=== PATIENT | male | born 1945 | race Two or more races ===

== ENCOUNTER 2017-04-19 22:48 | Inpatient (IN) | payer MEDICARE, OTHER ==
[~2017-04-19] VITALS: Ht 160 cm; Wt 76.0 kg
[2017-04-19 22:48] VITALS: Ht 160 cm; Wt 76.0 kg
[~2017-04-19 22:48] MED LIST: ALBU8.5H3 INH; ALLO100T PO; AZIT250T94 PO; CARV25TA79 PO; CLON0.2T5 PO; CODE118S PO; COLC0.6T6 PO; FURO20TA3 PO; GLIM2TAB PO; HYDR100T25 PO; LANT3I SC; LINA5TAB PO; LISI-526 PO; NITR0.4T28 SL; OMEP20CA16 PO; SIMV40TA2 PO
[2017-04-19 23:08] LABS: BASOPHILS % 0.3 % (0.0-2.0); EOSINOPHILS # 0.3 10^3/ul (0.0-0.5); EOSINOPHILS % 2.4 % (0.0-7.0); HEMATOCRIT 43.2 % (42.0-52.0); HEMOGLOBIN 14.3 g/dl (14.0-18.0); LYMPHOCYTES # 2.1 10^3/ul (0.8-2.9); LYMPHOCYTES % 15.8 % (15.0-51.0); MEAN CORPUSCULAR HGB CONC 33.1 g/dl (32.0-37.0); MEAN CORPUSCULAR VOLUME 90.6 fl (82.0-101.0); MEAN PLATELET VOLUME 11.3 fl (7.4-10.4); MONOCYTE # 1.3 10^3/ul (0.3-0.9); MONOCYTES % 9.9 % (0.0-11.0); NEUTROPHILS % 70.9 % (39.0-77.0); PLATELET COUNT 141 10^3/UL (140-415); RED BLOOD COUNT 4.77 10^6/ul (4.70-6.10); RED CELL DISTRIBUTION WIDTH 12.2 % (11.5-14.5); WHITE BLOOD COUNT 13.5 10^3/ul (4.8-10.8)
[2017-04-19 23:36] LABS: ALBUMIN 3.9 g/dl (3.3-4.9); ALBUMIN/GLOBULIN RATIO 1.39; BILIRUBIN,INDIRECT 0.4 mg/dl (0-1.1); BILIRUBIN,TOTAL 0.4 mg/dl (0.2-1.3); CALCIUM 9.4 mg/dl (8.4-10.2); CREATININE 1.66 mg/dl (0.61-1.24); POTASSIUM 4.1 mmol/L (3.5-5.1); TOTAL PROTEIN 6.7 g/dl (6.1-8.1)
--- NOTE | 2017-04-19 23:37 | RADRPT ---
PROCEDURE: XR Chest. CLINICAL INDICATION: Chest pain. TECHNIQUE: Single frontal view of the chest COMPARISON: 02/19/2016 FINDINGS: Cardiomegaly. Atherosclerotic calcifications in the thoracic aorta. The lungs are clear. No signs of pleural fluid or pneumothorax are seen. The osseous structures and soft tissues are unremarkable. IMPRESSION: No evidence for active cardiopulmonary disease. RPTAT: [facility] Physician Daniel Date Time Electronically viewed and signed by Physician Daniel on 04/19/2017 23:37 RS/
[2017-04-19 23:48] LABS: TROPONIN-I 0.023 ng/ml (0.00-0.12)
[2017-04-20] VITALS (7 sets, daily range): BP systolic 122–180; BP diastolic 65–70; PULSE 50–80; RESP 16–18
[2017-04-20] MEDS ORDERED: HYDR-906 PO (01:11)
--- NOTE | 2017-04-20 02:37 | ERA ---
ER Documentation Chief Complaint Date/Time DATE: 04/20/17 TIME: 02:35 Chief Complaint bib ra 7 from home for cp since 1300, 2 sprays nitro+ 4 tabs of 81 mg asa, HPI This is a 71-year-old male comes in from home with chest pains at 1300. Was given 2 sprays of nitro and 324 of aspirin in the field. No nausea no vomiting no chills. Pain is mild to moderate intensity colicky nature with no exacerbating or alleviating factors. ROS All systems reviewed and are negative except as per history of present illness. Medications Home Meds Active Scripts Azithromycin* (Zithromax*) 250 Mg Tablet, 250 MG PO .ZPACK DIRECTED, #6 TAB TAKE 500 MG (2 TABS) THE FIRST DAY THEN 250 MG (1 TAB) DAYS 2-5 Prov:FRANCISCO FERGUSON MD 02/19/16 Reported Medications Hydrocodone/Acetaminophen (Raphine 5-325 Tablet) 1 Each Tablet, 1 EACH PO PRN for PAIN AND/OR INFLAMMATION, TAB 04/20/17 Insulin Glargine* (Lantus*) 100 Unit/Ml Soln, 24 UNIT SC QHS, #1 VIAL 02/19/16 Furosemide* (Furosemide*) 20 Mg Tablet, 10 MG PO DAILY, #60 TAB 02/19/16 Clonidine Hcl* (Clonidine Hcl*) 0.2 Mg Tablet, 0.2 MG PO Q8, TAB 02/19/16 Linagliptin (TRADJENTA) 5 Mg Tablet, 5 MG PO DAILY, TAB 02/19/16 Hydralazine Hcl* (Hydralazine Hcl*) 100 Mg Tablet, 100 MG PO Q8, #90 TAB 02/19/16 Allopurinol* (Allopurinol*) 100 Mg Tablet, 100 MG PO DAILY, TAB 02/19/16 Albuterol Sulfate* (Proair HFA*) 8.5 Gm Hfa.aer.ad, 2 PUFF INH Q4H Y for WHEEZING AND SOB, #1 INHALER 02/19/16 Omeprazole* (Omeprazole*) 20 Mg Capsule.dr, 20 MG PO DAILY, #30 CAP 02/19/16 Glimepiride* (Glimepiride*) 2 Mg Tablet, 2 MG PO WITH BREAKFAST DINNE, TAB 02/19/16 Colchicine* (Colcrys*) 0.6 Mg Tablet, 0.6 MG PO BID-TID, TAB 02/19/16 Carvedilol* (Carvedilol*) 25 Mg Tablet, 25 MG PO TID, #60 TAB 02/19/16 Simvastatin* (Zocor*) 40 Mg Tablet, 40 MG PO DAILY 10/26/11 Lisinopril* (Zestril*) 40 Mg Tablet, 20 MG PO BID 10/26/11 Nitroglycerin (Nitroquick) 0.4 Mg Tab.subl, 0.4 MG SL PRN 10/26/11 Discontinued Scripts Promethazine w/Codeine (Phenergan w/Codeine Syrup) 5 Ml Syrup, 5 ML PO Q6 Y for COUGH, #120 ML Prov:FRANCISCO FERGUSON MD 02/19/16 Allergies Allergies: Coded Allergies: No Known Allergy (Unverified , 04/20/17) PMhx/Soc History of Surgery: Yes (S/P CABG X 4 Vessels.) Anesthesia Reaction: No (UNKNOWN) Hx Neurological Disorder: No Hx Respiratory Disorders: No Hx Cardiac Disorders: Yes (HTN,HYPERLIPIDEMIA) Hx Psychiatric Problems: No Hx Miscellaneous Medical Probl: Yes (DM, HTN) Hx Alcohol Use: No Hx Substance Use: No Hx Tobacco Use: No Smoking Status: Never smoker Physical Exam Vitals Vital Signs Date Time Temp Pulse Resp B/P Pulse Ox O2 Delivery O2 Flow Rate FiO2 04/19/17 22:48 Nasal Cannula 2 04/19/17 22:48 98.1 78 18 188/76 100 Physical Exam Const: [] Head: Atraumatic Eyes: Normal Conjunctiva ENT: Normal External Ears, Nose and Mouth. Neck: Full range of motion..~ No meningismus. Resp: Clear to auscultation bilaterally Cardio: Regular rate and rhythm, no murmurs Abd: Soft, non tender, non distended. Normal bowel sounds Skin: No petechiae or rashes Back: No midline or flank tenderness Ext: No cyanosis, or edema Neur: Awake and alert Psych: Normal Mood and Affect Result Diagram: 04/19/17 7383 04/19/17 2311 Results 24 hrs Laboratory Tests Test 04/19/17 22:52 04/19/17 23:11 White Blood Count 13.510^3/ul Red Blood Count 4.7710^6/ul Hemoglobin 14.3g/dl Hematocrit 43.2% Mean Corpuscular Volume 90.6fl Mean Corpuscular Hemoglobin 30.0pg Mean Corpuscular Hemoglobin Concent 33.1g/dl Red Cell Distribution Width 12.2% Platelet Count 47705^3/UL Mean Platelet Volume 11.3fl Neutrophils % 70.9% Lymphocytes % 15.8% Monocytes % 9.9% Eosinophils % 2.4% Basophils % 0.3% Nucleated Red Blood Cells % 0.0/100WBC Neutrophils # (Manual) 9.610^3/ul Lymphocytes # 2.110^3/ul Monocytes # 1.310^3/ul Eosinophils # 0.310^3/ul Basophils # 0.010^3/ul Nucleated Red Blood Cells # 0.010^3/ul Sodium Level 138mmol/L Potassium Level 4.1mmol/L Chloride Level 103mmol/L Carbon Dioxide Level 30mmol/L Anion Gap 9 Blood Urea Nitrogen 18mg/dl Creatinine 1.66mg/dl Glucose Level 211mg/dl Calcium Level 9.4mg/dl Total Bilirubin 0.4mg/dl Direct Bilirubin 0.00mg/dl Indirect Bilirubin 0.4mg/dl Aspartate Amino Transf (AST/SGOT) 19IU/L Alanine Aminotransferase (ALT/SGPT) 30IU/L Alkaline Phosphatase 61IU/L Troponin I 0.023ng/ml B-Type Natriuretic Peptide 4190PG/ML Total Protein 6.7g/dl Albumin 3.9g/dl Globulin 2.80g/dl Albumin/Globulin Ratio 1.39 Procedures/MDM EKG: Rate/Rhythm: [Normal Sinus Rhythm] QRS, ST, T-waves: [No changes consistent w/ acute ischemia] Impression: [No evidence of ischemia or arrhythmia] Chest X-ray 1V Interpreted by me: Soft Tissue: No acute abnormalities Bones: No acute abnormalities Mediastinum/Cardiac Silhouette/Lungs: [No acute abnormalities] Patient's symptoms are concerning for cardiac cause will require inpatient workup and continuous monitoring. Further w/u for ischemia, arrhythmia, PE or dissection will be deferred to the inpatient team. Accepting Care Team: Current data and ongoing care discussed. Time: 2:30 AM Primary Provider: Dr. Melendez Consulting: [[place]] Outstanding Data: none Departure Diagnosis: Primary Impression: Chest pain Qualified Code: R07.9 - Chest pain, unspecified type Condition: Serious MIMA KAUR Apr 20, 2017 02:37
[2017-04-20] MEDS ORDERED: hydrALAzine 20 MG INJ IV ONE (05:00)
[2017-04-20] MEDS ORDERED: morphine 4 MG/ML VIAL IV STA (05:49)
[2017-04-20 11:58] LABS: CHOL/HDL RATIO 3.2 RATIO
[2017-04-20] MEDS ORDERED: morphine 2 MG INJ IV PRN (12:00)
[2017-04-20] MEDS ORDERED: hydrALAzine 20 MG INJ IV PRN (12:00)
[2017-04-20] MEDS ORDERED: LISINOPRIL 20 MG TAB PO ONE (12:00)
[2017-04-20] MEDS ORDERED: ATORVASTATIN 40 MG TAB PO SCH (12:00)
[2017-04-20] MEDS ORDERED: ATORVASTATIN 40 MG TAB PO ONE (12:00)
[2017-04-20] MEDS ORDERED: NITROGLYCERIN (SL) 0.4 MG TAB SL SCH (12:00)
[2017-04-20] MEDS ORDERED: PANTOPRAZOLE (EC) 40 MG TAB PO ONE (12:00)
[2017-04-20] MEDS ORDERED: ONDANSETRON 4 MG INJ IV PRN (12:00)
--- NOTE | 2017-04-20 12:16 | QN ---
Documentation Comment Observation Note: Time: 4 hours Family Hx: Negative for diabetes Evaluation: Multiple exams showed improving symptoms and no evidence of clinical decompensation. IAIN VERGARA MD Apr 20, 2017 12:16
--- NOTE | 2017-04-20 12:19 | HP ---
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 Dw Dr Silva HPI/ROS Admit Date/Time Admit Date/Time ROS HPI This is a 71-year-old male comes in from home with chest pains at 1300. Was given 2 sprays of nitro and 324 of aspirin in the field. No nausea no vomiting no chills. Pain is mild to moderate intensity colicky nature with no exacerbating or alleviating factors. ROS All systems reviewed and are negative except as per history of present illness. Medications Home Meds Active Scripts Azithromycin* (Zithromax*) 250 Mg Tablet, 250 MG PO .ZPACK DIRECTED, #6 TAB TAKE 500 MG (2 TABS) THE FIRST DAY THEN 250 MG (1 TAB) DAYS 2-5 Prov:FRANCISCO FERGUSON MD 02/19/16 Reported Medications Hydrocodone/Acetaminophen (Elizabeth 5-325 Tablet) 1 Each Tablet, 1 EACH PO PRN for PAIN AND/OR INFLAMMATION, TAB 04/20/17 Insulin Glargine* (Lantus*) 100 Unit/Ml Soln, 24 UNIT SC QHS, #1 VIAL 02/19/16 Furosemide* (Furosemide*) 20 Mg Tablet, 10 MG PO DAILY, #60 TAB 02/19/16 Clonidine Hcl* (Clonidine Hcl*) 0.2 Mg Tablet, 0.2 MG PO Q8, TAB 02/19/16 Linagliptin (TRADJENTA) 5 Mg Tablet, 5 MG PO DAILY, TAB 02/19/16 Hydralazine Hcl* (Hydralazine Hcl*) 100 Mg Tablet, 100 MG PO Q8, #90 TAB 02/19/16 Allopurinol* (Allopurinol*) 100 Mg Tablet, 100 MG PO DAILY, TAB 02/19/16 Albuterol Sulfate* (Proair HFA*) 8.5 Gm Hfa.aer.ad, 2 PUFF INH Q4H Y for WHEEZING AND SOB, #1 INHALER 02/19/16 Omeprazole* (Omeprazole*) 20 Mg Capsule.dr, 20 MG PO DAILY, #30 CAP 02/19/16 Glimepiride* (Glimepiride*) 2 Mg Tablet, 2 MG PO WITH BREAKFAST DINNE, TAB 02/19/16 Colchicine* (Colcrys*) 0.6 Mg Tablet, 0.6 MG PO BID-TID, TAB 02/19/16 Carvedilol* (Carvedilol*) 25 Mg Tablet, 25 MG PO TID, #60 TAB 02/19/16 Simvastatin* (Zocor*) 40 Mg Tablet, 40 MG PO DAILY 10/26/11 Lisinopril* (Zestril*) 40 Mg Tablet, 20 MG PO BID 10/26/11 Nitroglycerin (Nitroquick) 0.4 Mg Tab.subl, 0.4 MG SL PRN 10/26/11 Discontinued Scripts Promethazine w/Codeine (Phenergan w/Codeine Syrup) 5 Ml Syrup, 5 ML PO Q6 Y for COUGH, #120 ML Prov:FRANCISCO FERGUSON MD 02/19/16 Allergies Allergies: Coded Allergies: No Known Allergy (Unverified , 04/20/17) Smoking Status: Never smoker Respiratory: no complaints Cardiovascular: chest pain Gastrointestinal: no complaints Genitourinary: no complaints Musculoskeletal: no complaints Skin: no complaints PMH/Family/Social Past Medical History PMhx/Soc History of Surgery: Yes (S/P CABG X 4 Vessels.) Anesthesia Reaction: No (UNKNOWN) Hx Neurological Disorder: No Hx Respiratory Disorders: No Hx Cardiac Disorders: Yes (HTN,HYPERLIPIDEMIA) Hx Psychiatric Problems: No Hx Miscellaneous Medical Probl: Yes (DM, HTN) Hx Alcohol Use: No Hx Substance Use: No Hx Tobacco Use: No Social History Alcohol Use: none Smoking Status: Never smoker Drug Use: none Exam/Review of Systems Vital Signs Vitals Vital Signs Date Time Temp Pulse Resp B/P Pulse Ox O2 Delivery O2 Flow Rate FiO2 04/20/17 06:45 81 18 174/80 95 Room Air 04/20/17 00:00 15.0 04/19/17 22:48 98.1 Exam Constitutional: alert, oriented Cardiovascular: nl pulses Gastrointestinal: non-tender, soft Extremities: edema (MILD ble) Neurological: nl mental status, nl speech Labs Result Diagram: 04/19/17 2252 04/19/17 2311 LOPEZ GONZALEZ Apr 20, 2017 11:49
[2017-04-20] MEDS ORDERED: GLUCOSE GEL 15 GRAM TUBE PO PRN ×2 (12:30)
[2017-04-20] MEDS ORDERED: GLUCOSE GEL 15 GRAM TUBE BUCCAL PRN (12:30)
[2017-04-20] MEDS ORDERED: HYPOGLYCEMIA PROTOCOL when Glucose is <70 mg/dL or symptomatic <90 mg/dL. XX ONE (12:30)
[2017-04-20] MEDS ORDERED: Discontinue current oral sulfonylureas (glyburide, glipizide, and/or glimepiride) prior to XX ONE (12:30)
[2017-04-20] MEDS ORDERED: GLUCAGON 1 MG INJ IM PRN (12:30)
[2017-04-20] MEDS ORDERED: DEXTROSE 50% 50 ML SYRINGE IV PRN ×2 (12:30)
--- NOTE | 2017-04-20 12:39 | RADRPT ---
PROCEDURE: US Lower extremity Venous. CLINICAL INDICATION: Bilateral lower extremity edema , shortness of breath TECHNIQUE: Multiple sonographic images of the bilateral lower extremity deep venous system was obt ained utilizing grayscale, color-flow, compressive sonography and doppler imaging with augmentation. The images were reviewed on a PACS workstation. COMPARISON: None. FINDINGS: There is normal compressibility and flow within the bilateral common femoral, femoral , posterior ti bial and popliteal veins. RPTAT: AA IMPRESSION: No sonographic evidence for deep venous thrombosis. .Aubrey Montoya MD, MD Date Time Electronically viewed and signed by .Aubrey Montoya MD, on 04/20/2017 12:39 .S/
[2017-04-20] MEDS ORDERED: ALBUTEROL HFA 8 GM INHALER INH PRN (13:00)
--- NOTE | 2017-04-20 14:24 | CONS ---
Date/Time of Note Date/Time of Note DATE: 04/20/17 TIME: 14:22 Assessment/Plan Assessment/Plan Additional Assessment/Plan 1. acute kidney injury due to prerenal azotemia 2. Chest pain 3. h/o CAD s/p CABG 4. Hypertension 5. hyperlipidemia 6. Diabetes melitus 7. 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 Was given 2 sprays of nitro and 324 of aspirin in the field. No nausea no vomiting no chills. Pain is mild to moderate intensity colicky nature with no exacerbating or alleviating factors.. his BNP has been elevated, and renal has been consulted for acute kidney injury Respiratory: no complaints Cardiovascular: chest pain Gastrointestinal: no complaints Genitourinary: no complaints Musculoskeletal: no complaints Skin: no complaints Past Medical History Medical History: coronary artery disease, diabetes, high cholesterol, hypertension Past Surgical History Past Surgical Hx: other (CABG) Family History Significant Family History: no pertinent family hx Social History Alcohol Use: none Smoking Status: Never smoker Drug Use: none Exam/Review of Systems Vital Signs Vitals Vital Signs Date Time Temp Pulse Resp B/P Pulse Ox O2 Delivery O2 Flow Rate FiO2 04/20/17 12:28 85 18 170/74 99 Room Air 04/20/17 00:00 15.0 04/19/17 22:48 98.1 Exam Constitutional: alert Psych: no complaints Head: normocephalic Eyes: nl conjunctiva ENMT: nl external ears & nose Neck: non-tender, supple Respiratory: clear to auscultation, diminished breath sounds, normal air movement Cardiovascular: nl pulses, regular rate and rhythm Gastrointestinal: nl liver, spleen, non-tender, soft Musculoskeletal: nl extremities to inspection, nl gait and stance Neurological: 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 / 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 II-XII intact, nl mental status, nl speech, nl strength Skin: nl turgor Results Result Diagram: 04/19/17 2252 04/19/17 2311 Results 24 hrs Laboratory Tests Test 04/19/17 22:52 04/19/17 23:11 04/20/17 11:22 White Blood Count 13.5 H Red Blood Count 4.77 Hemoglobin 14.3 Hematocrit 43.2 Mean Corpuscular Volume 90.6 Mean Corpuscular Hemoglobin 30.0 Mean Corpuscular Hemoglobin Concent 33.1 Red Cell Distribution Width 12.2 Platelet Count 141 Mean Platelet Volume 11.3 H Neutrophils % 70.9 Lymphocytes % 15.8 Monocytes % 9.9 Eosinophils % 2.4 Basophils % 0.3 Nucleated Red Blood Cells % 0.0 Neutrophils # (Manual) 9.6 H Lymphocytes # 2.1 Monocytes # 1.3 H Eosinophils # 0.3 Basophils # 0.0 Nucleated Red Blood Cells # 0.0 Sodium Level 138 Potassium Level 4.1 Chloride Level 103 Carbon Dioxide Level 30 Anion Gap 9 Blood Urea Nitrogen 18 Creatinine 1.66 H Glucose Level 211 Calcium Level 9.4 Total Bilirubin 0.4 Direct Bilirubin 0.00 Indirect Bilirubin 0.4 Aspartate Amino Transf (AST/SGOT) 19 Alanine Aminotransferase (ALT/SGPT) 30 Alkaline Phosphatase 61 Troponin I 0.023 B-Type Natriuretic Peptide 4190 H Total Protein 6.7 Albumin 3.9 Globulin 2.80 Albumin/Globulin Ratio 1.39 Triglycerides Level 108 Cholesterol Level 117 LDL Cholesterol, Calculated 59 HDL Cholesterol 36 Cholesterol/HDL Ratio 3.2 Thyroid Stimulating Hormone (TSH) 0.683 Medications Medications Current Medications Allopurinol (Zyloprim) 100 mg DAILY PO ; Start 04/21/17 at 09:00 Carvedilol (Coreg) 25 mg TID PO Last administered on 04/20/17 14:11; Admin Dose 25 MG; Start 04/20/17 at 13:00 Clonidine (Catapres) 0.2 mg Q8 PO Last administered on 04/20/17 14:11; Admin Dose 0.2 MG; Start 04/20/17 at 14:00 Furosemide (Lasix) 10 mg DAILY PO ; Start 04/21/17 at 09:00 Hydralazine HCl (Apresoline) 100 mg Q8 PO Last administered on 9/12/17at 14:11 ; Admin Dose 100 MG; Start 04/20/17 at 14:00 Acetaminophen/ Hydrocodone Bitart (Collins (5/325)) 1 tab PRN PO ; Start 04/20/17 at 12:00 Insulin Glargine (Lantus) 24 unit QHS SC ; Start 04/20/17 at 21:00 Linagliptin (Tradjenta) 5 mg DAILY PO ; Start 04/21/17 at 09:00 Lisinopril (Zestril) 20 mg BID PO ; Start 04/20/17 at 21:00 Nitroglycerin (Nitroglycerin (Sl Tab) 0.4 Mg) 1 tab PRN SL ; Start 04/20/17 at 12:00 Colchicine (Colchicine) 0.6 mg BID PO ; Start 04/21/17 at 09:00; Status UNV Pantoprazole (Protonix Tab) 40 mg DAILY PO ; Start 04/20/17 at 12:00 Ondansetron HCl (Zofran Inj) 4 mg Q6 PRN IV NAUSEA AND/OR VOMITING; Start 04/20 at 12:00 Docusate Sodium (Colace) 100 mg BID PO ; Start 04/20/17 at 21:00 Acetaminophen (Tylenol Tab) 650 mg Q6 PRN PO PAIN AND OR ELEVATED TEMP; Start 04/20/17 at 12:00 Morphine Sulfate (morphine) 2 mg Q6H PRN IV PAIN LEVEL 6-10; Start 04/20/17 at 12:00 Hydralazine HCl (Apresoline) 20 mg Q6 PRN IV ELEVATED BLOOD PRESSURE; Start 07/25 at 12:30 Miscellaneous Information 1 ea NOTE XX ; Start 04/20/17 at 12:30 Glucose (Glutose) 15 gm Q15M PRN PO DECREASED GLUCOSE; Start 04/20/17 at 12:30 Glucose (Glutose) 22.5 gm Q15M PRN PO DECREASED GLUCOSE; Start 04/20/17 at 12: 30 Dextrose (D50w Syringe) 25 ml Q15M PRN IV DECREASED GLUCOSE; Start 04/20/17 at 12:30 Dextrose (D50w Syringe) 50 ml Q15M PRN IV DECREASED GLUCOSE; Start 04/20/17 at 12:30 Glucagon (Glucagen) 1 mg Q15M PRN IM DECREASED GLUCOSE; Start 04/20/17 at 12:30 Glucose (Glutose) 15 gm Q15M PRN BUCCAL DECREASED GLUCOSE; Start 04/20/17 at 12 :30 Diagnostic Test (Pha) (Accu-Chek) 1 ea 02 XX ; Start 04/21/17 at 02:00 Miscellaneous Information (*Order Clarification Bulletin) COLCHICINE: ?WHAT IS THE TOTAL DOSE... Q8H XX Last administered on 04/20/17t 13:28; Admin Dose 1 EA ; Start 04/20/17 at 12:30 Atorvastatin Calcium (Lipitor) 40 mg QHS PO ; Start 04/20/17 at 21:00 Nitroglycerin (Nitroglycerin 0.4 Mg/Hr) 1 patch Q6 TRANSDERM ; Start 04/20/17 at 18:00; Status UNV Enoxaparin Sodium (Lovenox) 40 mg DAILY SC ; Start 04/21/17 at 09:00; Status UNV LORENZA GIBSON MD Apr 20, 2017 14:24
[2017-04-20] MEDS ORDERED: NIFEdipine (XL) 30 MG TAB PO ONE (15:00)
[2017-04-20] MEDS ORDERED: SOD CHLORIDE 0.9% 1,000 ML IV SCH (15:00)
[2017-04-20] MEDS ORDERED: ENOXAPARIN 40 MG/0.4 ML SYG SC SCH (15:00)
[2017-04-20] MEDS ORDERED: ALBUTEROL 18 GM INHALER INH PRN (15:30)
[2017-04-20] MEDS: PANTOPRAZOLE (EC) 40 MG TAB PO SCH (16:57)
[2017-04-20] MEDS: ENOXAPARIN 40 MG/0.4 ML SYG SC SCH (17:07)
[2017-04-20] MEDS: INSULIN ASPART [NOVOLOG] 3 ML PEN SC SCH ×2 (17:08→21:00)
[2017-04-20] MEDS ORDERED: NITROGLYCERIN 0.4 MG/HR PATCH TRANSDERM SCH (18:00)
[2017-04-20] MEDS: LISINOPRIL 20 MG TAB PO SCH (21:47)
[2017-04-20] MEDS: DOCUSATE SODIUM 100 MG CAP PO SCH (21:47)
[2017-04-20] MEDS: ATORVASTATIN 40 MG TAB PO SCH (21:47)
[2017-04-20] MEDS: ACETAMINOPHEN 325 MG TAB PO PRN (21:48)
[2017-04-20] MEDS: INSULIN GLARGINE [LANtus] 3 ML PEN SC SCH (21:54)
[2017-04-21] VITALS (15 sets, daily range): BP systolic 91–165; BP diastolic 51–70; PULSE 34–60; RESP 18–22
[2017-04-21] MEDS: ACCU-CHEK XX SCH (02:00)
[2017-04-21] MEDS ORDERED: COLCHICINE 0.6 MG TAB PO PRN (09:00)
[2017-04-21] MEDS ORDERED: COLCHICINE 0.6 MG TAB PO SCH (09:00)
[2017-04-21] MEDS: DOCUSATE SODIUM 100 MG CAP PO SCH ×2 (09:02→21:21)
[2017-04-21] MEDS: LINAGLIPTIN 5 MG TABLET PO SCH (09:02)
[2017-04-21] MEDS: FUROSEMIDE 20 MG TAB PO SCH (09:02)
[2017-04-21] MEDS: LISINOPRIL 20 MG TAB PO SCH (09:03)
[2017-04-21] MEDS: PANTOPRAZOLE (EC) 40 MG TAB PO SCH (09:03)
[2017-04-21] MEDS: ALLOPURINOL 100 MG TAB PO SCH (09:03)
[2017-04-21] MEDS: ISOSORBIDE MONONITRATE(SR)30 MG TAB PO SCH (09:04)
[2017-04-21] MEDS: ENOXAPARIN 40 MG/0.4 ML SYG SC SCH (09:06)
[2017-04-21] MEDS: INSULIN ASPART [NOVOLOG] 3 ML PEN SC SCH ×4 (09:06→21:00)
[2017-04-21] MEDS: HYDROCODONE/APAP (5/325) TAB PO SCH ×2 (09:08→21:50)
[2017-04-21 10:16] LABS: BASOPHIL # 0.1 10^3/ul (0.0-0.1); BASOPHILS % 0.4 % (0.0-2.0); EOSINOPHILS # 0.3 10^3/ul (0.0-0.5); EOSINOPHILS % 2.1 % (0.0-7.0); HEMATOCRIT 42.8 % (42.0-52.0); HEMOGLOBIN 13.5 g/dl (14.0-18.0); LYMPHOCYTES # 1.9 10^3/ul (0.8-2.9); LYMPHOCYTES % 15.6 % (15.0-51.0); MEAN CORPUSCULAR HEMOGLOBIN 28.7 pg (29.0-33.0); MEAN CORPUSCULAR HGB CONC 31.5 g/dl (32.0-37.0); MEAN CORPUSCULAR VOLUME 90.9 fl (82.0-101.0); MEAN PLATELET VOLUME 11.3 fl (7.4-10.4); MONOCYTE # 1.5 10^3/ul (0.3-0.9); NEUTROPHILS % 69.3 % (39.0-77.0); PLATELET COUNT 137 10^3/UL (140-415); POSITIVE DIFF @See below; RED BLOOD COUNT 4.71 10^6/ul (4.70-6.10); RED CELL DISTRIBUTION WIDTH 12.8 % (11.5-14.5); WHITE BLOOD COUNT 12.4 10^3/ul (4.8-10.8)
[2017-04-21 10:35] LABS: ALBUMIN 3.6 g/dl (3.3-4.9); ALBUMIN/GLOBULIN RATIO 1.16; BILIRUBIN,INDIRECT 0.7 mg/dl (0-1.1); BILIRUBIN,TOTAL 0.7 mg/dl (0.2-1.3); CREATININE 2.12 mg/dl (0.61-1.24); POTASSIUM 4.4 mmol/L (3.5-5.1); TOTAL PROTEIN 6.7 g/dl (6.1-8.1)
--- NOTE | 2017-04-21 11:57 | PN ---
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 Dw Dr Silva Exam/Review of Systems Vital Signs Vitals Vital Signs Date Time Temp Pulse Resp B/P Pulse Ox O2 Delivery O2 Flow Rate FiO2 04/21/17 11:52 98.0 60 20 91/60 98 04/20/17 20:14 Room Air 04/20/17 00:00 15.0 Intake and Output 04/20/17 04/20/17 04/21/17 15:00 23:00 07:00 Intake Total 500 ml 250 ml Balance 500 ml 250 ml Exam Constitutional: alert, oriented, well developed Respiratory: clear to auscultation, normal air movement Cardiovascular: nl pulses, regular rate and rhythm Gastrointestinal: non-tender, soft Musculoskeletal: nl extremities to inspection Extremities: normal pulses Neurological: nl mental status, nl speech Results Result Diagram: 04/21/17 0950 04/21/17 0950 Results 24 hrs Laboratory Tests Test 04/20/17 16:30 04/20/17 16:53 04/20/17 21:50 04/21/17 02:43 Troponin I 0.075 Bedside Glucose 219 166 233 H Test 04/21/17 08:51 04/21/17 09:50 04/21/17 11:27 Bedside Glucose 154 171 White Blood Count 12.4 H Red Blood Count 4.71 Hemoglobin 13.5 L Hematocrit 42.8 Mean Corpuscular Volume 90.9 Mean Corpuscular Hemoglobin 28.7 L Mean Corpuscular Hemoglobin Concent 31.5 L Red Cell Distribution Width 12.8 Platelet Count 137 L Mean Platelet Volume 11.3 H Neutrophils % 69.3 Lymphocytes % 15.6 Monocytes % 12.0 H Eosinophils % 2.1 Basophils % 0.4 Nucleated Red Blood Cells % 0.0 Neutrophils # (Manual) 8.6 H Lymphocytes # 1.9 Monocytes # 1.5 H Eosinophils # 0.3 Basophils # 0.1 Nucleated Red Blood Cells # 0.0 Sodium Level 140 Potassium Level 4.4 Chloride Level 104 Carbon Dioxide Level 30 Anion Gap 10 Blood Urea Nitrogen 26 H Creatinine 2.12 H Glucose Level 185 Hemoglobin A1c 8.2 H Calcium Level 9.0 Total Bilirubin 0.7 Direct Bilirubin 0.00 Indirect Bilirubin 0.7 Aspartate Amino Transf (AST/SGOT) 16 Alanine Aminotransferase (ALT/SGPT) 33 Alkaline Phosphatase 60 Total Protein 6.7 Albumin 3.6 Globulin 3.10 Albumin/Globulin Ratio 1.16 Free Thyroxine 1.45 Medications Medications Current Medications Allopurinol (Zyloprim) 100 mg DAILY PO Last administered on 04/21/17 09:03; Admin Dose 100 MG; Start 04/21/17 at 09:00 Carvedilol (Coreg) 25 mg TID PO Last administered on 04/21/17 09:03; Admin Dose 25 MG; Start 04/20/17 at 13:00 Clonidine (Catapres) 0.2 mg Q8 PO Last administered on 04/21/17 05:48; Admin Dose 0.2 MG; Start 04/20/17 at 14:00 Furosemide (Lasix) 10 mg DAILY PO Last administered on 04/21/17 09:02; Admin Dose 10 MG; Start 04/21/17 at 09:00 Hydralazine HCl (Apresoline) 100 mg Q8 PO Last administered on 04/21/17 05:48 ; Admin Dose 100 MG; Start 04/20/17 at 14:00 Acetaminophen/ Hydrocodone Bitart ([place] (5/325)) 1 tab PRN PO Last administered on 04/21/17 09:08; Admin Dose 1 TAB; Start 04/20/17 at 12:00 Insulin Glargine (Lantus) 24 unit QHS SC Last administered on 04/20/17 21:54; Admin Dose 24 UNIT; Start 04/20/17 at 21:00 Linagliptin (Tradjenta) 5 mg DAILY PO Last administered on 04/21/17 09:02; Admin Dose 5 MG; Start 04/21/17 at 09:00 Lisinopril (Zestril) 20 mg BID PO Last administered on 04/21/17 09:03; Admin Dose 20 MG; Start 04/20/17 at 21:00 Nitroglycerin (Nitroglycerin (Sl Tab) 0.4 Mg) 1 tab PRN SL ; Start 04/20/17 at 12:00 Colchicine (Colchicine) 0.6 mg DAILY PRN PO GOUT PAIN; Start 04/21/17 at 09:00 Pantoprazole (Protonix Tab) 40 mg DAILY PO Last administered on 04/21/17 09:03 ; Admin Dose 40 MG; Start 04/20/17 at 12:00 Ondansetron HCl (Zofran Inj) 4 mg Q6 PRN IV NAUSEA AND/OR VOMITING; Start 04/20 at 12:00 Docusate Sodium (Colace) 100 mg BID PO Last administered on 04/21/17 09:02; Admin Dose 100 MG; Start 04/20/17 at 21:00 Acetaminophen (Tylenol Tab) 650 mg Q6 PRN PO PAIN AND OR ELEVATED TEMP Last administered on 04/20/17 21:48; Admin Dose 650 MG; Start 04/20/17 at 12:00 Morphine Sulfate (morphine) 2 mg Q6H PRN IV PAIN LEVEL 6-10; Start 04/20/17 at 12:00 Hydralazine HCl (Apresoline) 20 mg Q6 PRN IV ELEVATED BLOOD PRESSURE; Start 07/25 at 12:30 Miscellaneous Information 1 ea NOTE XX ; Start 04/20/17 at 12:30 Glucose (Glutose) 15 gm Q15M PRN PO DECREASED GLUCOSE; Start 04/20/17 at 12:30 Glucose (Glutose) 22.5 gm Q15M PRN PO DECREASED GLUCOSE; Start 04/20/17 at 12: 30 Dextrose (D50w Syringe) 25 ml Q15M PRN IV DECREASED GLUCOSE; Start 04/20/17 at 12:30 Dextrose (D50w Syringe) 50 ml Q15M PRN IV DECREASED GLUCOSE; Start 04/20/17 at 12:30 Glucagon (Glucagen) 1 mg Q15M PRN IM DECREASED GLUCOSE; Start 04/20/17 at 12:30 Glucose (Glutose) 15 gm Q15M PRN BUCCAL DECREASED GLUCOSE; Start 04/20/17 at 12 :30 Diagnostic Test (Pha) (Accu-Chek) 1 ea 02 XX Last administered on 04/21/17 02: 00; Admin Dose 1 EA; Start 04/21/17 at 02:00 Atorvastatin Calcium (Lipitor) 40 mg QHS PO Last administered on 04/20/17 21: 47; Admin Dose 40 MG; Start 04/20/17 at 21:00 Enoxaparin Sodium (Lovenox) 40 mg DAILY SC Last administered on 04/21/17 09:06 ; Admin Dose 40 MG; Start 04/20/17 at 16:48 Isosorbide Mononitrate (Imdur) 30 mg DAILY PO Last administered on 04/21/17 09 :04; Admin Dose 30 MG; Start 04/21/17 at 09:00 LOPEZ GONZALEZ Apr 21, 2017 11:57
--- NOTE | 2017-04-21 17:39 | CONS ---
DATE OF ADMISSION: 04/20/2017 DATE OF CONSULTATION: 04/21/2017 REASON FOR CONSULTATION: Chest pain and atrial flutter. HISTORY OF PRESENT ILLNESS: Mr. Salgado is a 71-year-old male with a history of chest pain, coronary artery disease status post coronary artery bypass graft surgery, hypertension, dyslipidemia, diabetes mellitus, who initially presented with complaints of substernal chest pain. Upon arrival in the emergency department, temperature 98.1, blood pressure 180/76, pulse 78, respiratory 18, satting 100 percent. The patient's labs showed sodium 138, potassium 4.1, creatinine 1.66, BUN of 18, LDL 59, HDL 36. White blood cell count of 13.5, hemoglobin 14.3, platelet count 141. Troponin negative. The patient underwent a chest x-ray that revealed no evidence of acute cardiopulmonary abnormalities. The patient then underwent a venous ultrasound revealing no sonographic evidence of DVT. The patient's electrocardiogram had revealed rhythm most consistent with atrial flutter with variable block at a rate of 73, normal axis, incomplete right bundle branch block. The patient subsequently has been admitted to the telemetry floor and the monitor revealing atrial flutter with episodes of heart rates down to the 40s. The patient states chest pain has improved overall. The patient has an additional negative troponin. PAST MEDICAL HISTORY: As above in HPI. MEDICATION: Medications currently in the hospital: 1. Allopurinol. 2. Lasix 10 mg daily. 3. Tradjenta 5 mg daily. 4. Colchicine 0.6 mg p.r.n. 5. Imdur 30 mg daily. 6. Zestril 20 mg p.o. b.i.d. 7. Lantus. 8. Colace. 9. Lipitor. 10. at bedtime. 11. Lovenox subcu daily. 12. Albuterol. 13. Clonidine 0.2 q.8 hours. 14. Hydralazine 100 mg q.8 hours. 15. Carvedilol 25 mg p.o. t.i.d. 16. Hydralazine p.r.n. 17. Nitroglycerin p.r.n. 18. Protonix 40 mg daily. ALLERGIES: NO KNOWN DRUG ALLERGIES. SOCIAL HISTORY: No tobacco, EtOH or illicit drug use. FAMILY HISTORY: Negative for sudden cardiac or early CAD. REVIEW OF SYSTEMS: As above in HPI. CONSTITUTIONAL: No fevers or chills. RESPIRATORY: Shortness of breath. CARDIOVASCULAR: No chest pain. GASTROINTESTINAL: No vomiting. GENITOURINARY: No hematuria. MUSCULOSKELETAL: Degenerative joint disease. PSYCHIATRIC: The patient has depression. NEUROLOGIC: No documented CVA. PHYSICAL EXAMINATION: VITAL SIGNS: Temperature 98, blood pressure most recent 115/58, pulse 60, respiratory rate 20, satting 98 percent. GENERAL: The patient is alert, awake, no acute distress. NECK: JVP approximately 8 to 9 cm of water. LUNGS: Fair air movement throughout. HEART: Irregularly irregular rhythm, 1/6 systolic murmur. Nondisplaced PMI. ABDOMEN: Positive bowel sounds. Soft. EXTREMITIES: No pitting edema, 1+ posterior tibial pulses. LABORATORY DATA: As above in HPI with most recently from today: Sodium 140, potassium 4.2, creatinine 2.1, BUN of 26. White blood count 12.4, hemoglobin 13.5, platelet count 137. IMAGING STUDIES: As above in HPI. No further imaging studies are reviewed at this time. ECGs above in HPI, no further electrocardiograms reviewed at this time. IMPRESSION: 1. Chest pain. Assess for acute coronary syndrome with negative troponins x2. 2. Atrial flutter with some slow ventricular response at times down to the 40s on beta raffi. 3. Abnormal electrocardiogram with nonspecific ST and T-wave abnormalities. 4. Coronary artery disease, status post coronary artery bypass graft surgery 2012. 5. Dyslipidemia. 6. Gout. RECOMMENDATIONS: 1. At this time, would maintain patient on telemetry monitoring to follow rhythm and rate control closely. 2. Would decrease the patient's dose of carvedilol given letty arrhythmias with patient having normal free T4 and TSH at this time. 3. Continue the patient's additional antihypertensives with lisinopril, Imdur, hydralazine for overall systolic blood pressure control. 4. Complete patient's workup for myocardial infarction. 5. Follow troponin. 6. Will check a 2D echo to further investigate ejection fraction, wall motion and major abnormalities and if the patient does rule out for myocardial infarction, given patient's cardiac history, I believe patient will benefit from a cardiac stress test. This is scheduled to take place first thing in the morning. Thank you for allowing me to take part in the care of this patient. I will continue to follow him very closely with you. Dictated By: Rene Zavala MD /tiffanie/abimael /Document#: [id number] CC: Max Naranjo MD;*End*
--- NOTE | 2017-04-21 20:06 | CONS ---
Date/Time of Note Date/Time of Note DATE: 04/21/17 TIME: 20:04 Assessment/Plan Assessment/Plan Chief Complaint/Hosp Course 71-year-old male comes in from home with chest pains at 1300. Was given 2 sprays of nitro and 324 of aspirin in the field. No nausea no vomiting no chills. Pain is mild to moderate intensity colicky nature with no exacerbating or alleviating factors.. his BNP has been elevated, and renal has been consulted for acute kidney injury Problems: Additional Assessment/Plan 1. acute kidney injury due to prerenal azotemia 2. Chest pain 3. h/o CAD s/p CABG 4. Hypertension- not optimally controlled 5. hyperlipidemia 6. Diabetes melitus 7. 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 Plan: continue current Chest pain work up Cr bumped to 2.12- stop lisinopril continue hydrlazine, and Clonidine for bP control will use IV hydrlaszine prn will follow up Consultation Date/Type/Reason Admit Date/Time Apr 20, 2017 at 10:12 Initial Consult Date 04/20/17 Type of Consultation: NEPHROLOGY Referring Provider: SURENDRA ROSE MD 24 HR Interval Summary Free Text/Dictation Cr bumped to 2.12, BP stable, Exam/Review of Systems Vital Signs Vitals Vital Signs Date Time Temp Pulse Resp B/P Pulse Ox O2 Delivery O2 Flow Rate FiO2 04/21/17 17:11 60 165/70 04/21/17 16:16 98.5 20 98 04/20/17 20:14 Room Air 04/20/17 00:00 15.0 Intake and Output 04/20/17 04/20/17 04/21/17 14:59 22:59 06:59 Intake Total 500 ml 250 ml Balance 500 ml 250 ml Exam Constitutional: alert Psych: no complaints Head: normocephalic Eyes: nl conjunctiva ENMT: nl external ears & nose Neck: non-tender, supple Respiratory: clear to auscultation, diminished breath sounds, normal air movement Cardiovascular: nl pulses, regular rate and rhythm Gastrointestinal: nl liver, spleen, non-tender, soft Musculoskeletal: nl extremities to inspection, nl gait and stance 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 intact, nl mental status, nl speech, nl strength Results Result Diagram: 04/21/17 0950 04/21/17 0950 Results 24 hrs Laboratory Tests Test 04/20/17 21:50 04/21/17 02:43 04/21/17 08:51 04/21/17 09:50 Bedside Glucose 166 233 H 154 White Blood Count 12.4 H Red Blood Count 4.71 Hemoglobin 13.5 L Hematocrit 42.8 Mean Corpuscular Volume 90.9 Mean Corpuscular Hemoglobin 28.7 L Mean Corpuscular Hemoglobin Concent 31.5 L Red Cell Distribution Width 12.8 Platelet Count 137 L Mean Platelet Volume 11.3 H Neutrophils % 69.3 Lymphocytes % 15.6 Monocytes % 12.0 H Eosinophils % 2.1 Basophils % 0.4 Nucleated Red Blood Cells % 0.0 Neutrophils # (Manual) 8.6 H Lymphocytes # 1.9 Monocytes # 1.5 H Eosinophils # 0.3 Basophils # 0.1 Nucleated Red Blood Cells # 0.0 Sodium Level 140 Potassium Level 4.4 Chloride Level 104 Carbon Dioxide Level 30 Anion Gap 10 Blood Urea Nitrogen 26 H Creatinine 2.12 H Glucose Level 185 Hemoglobin A1c 8.2 H Calcium Level 9.0 Total Bilirubin 0.7 Direct Bilirubin 0.00 Indirect Bilirubin 0.7 Aspartate Amino Transf (AST/SGOT) 16 Alanine Aminotransferase (ALT/SGPT) 33 Alkaline Phosphatase 60 Total Protein 6.7 Albumin 3.6 Globulin 3.10 Albumin/Globulin Ratio 1.16 Free Thyroxine 1.45 Test 04/21/17 11:27 04/21/17 16:51 04/21/17 17:17 Bedside Glucose 171 187 Troponin I 0.035 Medications Medications Current Medications Allopurinol (Zyloprim) 100 mg DAILY PO Last administered on 04/21/17 09:03; Admin Dose 100 MG; Start 04/21/17 at 09:00 Clonidine (Catapres) 0.2 mg Q8 PO Last administered on 04/21/17 17:18; Admin Dose 0.2 MG; Start 04/20/17 at 14:00 Furosemide (Lasix) 10 mg DAILY PO Last administered on 04/21/17 09:02; Admin Dose 10 MG; Start 04/21/17 at 09:00 Hydralazine HCl (Apresoline) 100 mg Q8 PO Last administered on 04/21/17 17:18 ; Admin Dose 100 MG; Start 04/20/17 at 14:00 Acetaminophen/ Hydrocodone Bitart ([place] (5/325)) 1 tab PRN PO Last administered on 04/21/17 09:08; Admin Dose 1 TAB; Start 04/20/17 at 12:00 Insulin Glargine (Lantus) 24 unit QHS SC Last administered on 04/20/17 21:54; Admin Dose 24 UNIT; Start 04/20/17 at 21:00 Linagliptin (Tradjenta) 5 mg DAILY PO Last administered on 04/21/17 09:02; Admin Dose 5 MG; Start 04/21/17 at 09:00 Lisinopril (Zestril) 20 mg BID PO Last administered on 04/21/17 09:03; Admin Dose 20 MG; Start 04/20/17 at 21:00 Nitroglycerin (Nitroglycerin (Sl Tab) 0.4 Mg) 1 tab PRN SL ; Start 04/20/17 at 12:00 Colchicine (Colchicine) 0.6 mg DAILY PRN PO GOUT PAIN; Start 04/21/17 at 09:00 Pantoprazole (Protonix Tab) 40 mg DAILY PO Last administered on 04/21/17 09:03 ; Admin Dose 40 MG; Start 04/20/17 at 12:00 Ondansetron HCl (Zofran Inj) 4 mg Q6 PRN IV NAUSEA AND/OR VOMITING; Start 04/20 at 12:00 Docusate Sodium (Colace) 100 mg BID PO Last administered on 04/21/17 09:02; Admin Dose 100 MG; Start 04/20/17 at 21:00 Acetaminophen (Tylenol Tab) 650 mg Q6 PRN PO PAIN AND OR ELEVATED TEMP Last administered on 04/20/17 21:48; Admin Dose 650 MG; Start 04/20/17 at 12:00 Morphine Sulfate (morphine) 2 mg Q6H PRN IV PAIN LEVEL 6-10; Start 04/20/17 at 12:00 Hydralazine HCl (Apresoline) 20 mg Q6 PRN IV ELEVATED BLOOD PRESSURE; Start 07/25 at 12:30 Miscellaneous Information 1 ea NOTE XX ; Start 04/20/17 at 12:30 Glucose (Glutose) 15 gm Q15M PRN PO DECREASED GLUCOSE; Start 04/20/17 at 12:30 Glucose (Glutose) 22.5 gm Q15M PRN PO DECREASED GLUCOSE; Start 04/20/17 at 12: 30 Dextrose (D50w Syringe) 25 ml Q15M PRN IV DECREASED GLUCOSE; Start 04/20/17 at 12:30 Dextrose (D50w Syringe) 50 ml Q15M PRN IV DECREASED GLUCOSE; Start 04/20/17 at 12:30 Glucagon (Glucagen) 1 mg Q15M PRN IM DECREASED GLUCOSE; Start 04/20/17 at 12:30 Glucose (Glutose) 15 gm Q15M PRN BUCCAL DECREASED GLUCOSE; Start 04/20/17 at 12 :30 Diagnostic Test (Pha) (Accu-Chek) 1 ea 02 XX Last administered on 04/21/17 02: 00; Admin Dose 1 EA; Start 04/21/17 at 02:00 Atorvastatin Calcium (Lipitor) 40 mg QHS PO Last administered on 04/20/17 21: 47; Admin Dose 40 MG; Start 04/20/17 at 21:00 Enoxaparin Sodium (Lovenox) 40 mg DAILY SC Last administered on 04/21/17 09:06 ; Admin Dose 40 MG; Start 04/20/17 at 16:48 Isosorbide Mononitrate (Imdur) 30 mg DAILY PO Last administered on 04/21/17 09 :04; Admin Dose 30 MG; Start 04/21/17 at 09:00 Carvedilol (Coreg) 12.5 mg BID PO ; Start 04/21/17 at 21:00 LORENZA GIBSON MD Apr 21, 2017 20:06
[2017-04-21] MEDS: ATORVASTATIN 40 MG TAB PO SCH (21:21)
[2017-04-21] MEDS: INSULIN GLARGINE [LANtus] 3 ML PEN SC SCH (21:28)
[2017-04-22] VITALS (14 sets, daily range): BP systolic 105–162; BP diastolic 35–89; PULSE 56–103; RESP 18–21
[2017-04-22] MEDS: ACCU-CHEK XX SCH (02:00)
[2017-04-22] MEDS: HYDROCODONE/APAP (5/325) TAB PO SCH ×2 (05:39→12:06)
[2017-04-22] MEDS: INSULIN ASPART [NOVOLOG] 3 ML PEN SC SCH ×4 (08:00→21:15)
[2017-04-22 08:18] LABS: ABNORMAL IP MESSAGE 1; BASOPHILS % 0.3 % (0.0-2.0); EOSINOPHILS # 0.4 10^3/ul (0.0-0.5); EOSINOPHILS % 2.8 % (0.0-7.0); HEMATOCRIT 41.2 % (42.0-52.0); HEMOGLOBIN 13.3 g/dl (14.0-18.0); LYMPHOCYTES # 2.2 10^3/ul (0.8-2.9); LYMPHOCYTES % 15.5 % (15.0-51.0); MEAN CORPUSCULAR HEMOGLOBIN 29.5 pg (29.0-33.0); MEAN CORPUSCULAR HGB CONC 32.3 g/dl (32.0-37.0); MEAN CORPUSCULAR VOLUME 91.4 fl (82.0-101.0); MEAN PLATELET VOLUME 11.8 fl (7.4-10.4); MONOCYTE # 1.8 10^3/ul (0.3-0.9); MONOCYTES % 12.7 % (0.0-11.0); NEUTROPHIL # 9.6 10^3/ul (1.6-7.5); NEUTROPHILS % 68.1 % (39.0-77.0); PLATELET COUNT 141 10^3/UL (140-415); POSITIVE DIFF @See below; RED BLOOD COUNT 4.51 10^6/ul (4.70-6.10); RED CELL DISTRIBUTION WIDTH 12.5 % (11.5-14.5); WHITE BLOOD COUNT 14.1 10^3/ul (4.8-10.8)
[2017-04-22] MEDS: LINAGLIPTIN 5 MG TABLET PO SCH (08:35)
[2017-04-22] MEDS: ALLOPURINOL 100 MG TAB PO SCH (08:35)
[2017-04-22] MEDS: PANTOPRAZOLE (EC) 40 MG TAB PO SCH (08:35)
[2017-04-22] MEDS: FUROSEMIDE 20 MG TAB PO SCH (08:35)
[2017-04-22] MEDS: DOCUSATE SODIUM 100 MG CAP PO SCH ×2 (08:35→21:09)
[2017-04-22] MEDS: ISOSORBIDE MONONITRATE(SR)30 MG TAB PO SCH (08:35)
[2017-04-22] MEDS: ENOXAPARIN 40 MG/0.4 ML SYG SC SCH (08:37)
[2017-04-22 08:51] LABS: CALCIUM 8.9 mg/dl (8.4-10.2); CREATININE 1.84 mg/dl (0.61-1.24); POTASSIUM 4.5 mmol/L (3.5-5.1)
[2017-04-22] MEDS ORDERED: REGADENOSON 0.4 MG/5 ML SYG ONE (10:04)
--- NOTE | 2017-04-22 10:06 | RADRPT ---
PROCEDURE: XR Chest. CLINICAL INDICATION: Cough and fever. TECHNIQUE: Single frontal view. COMPARISON: 02/19/2016. FINDINGS: The lungs are clear. The heart is mildly enlarged. There are sternal wires and mediastinal clips. There is no pleural effusion. There is no pneumothorax. IMPRESSION: 1. Cardiomegaly. 2. Previous CABG. 3. Clear lungs. RPTAT: QQ .Alex Reyes MD, MD Date Time Electronically viewed and signed by .Alex Reyes MD, on 04/22/2017 10:05 .R/
--- NOTE | 2017-04-22 11:10 | CONS ---
Date/Time of Note Date/Time of Note DATE: 04/22/17 TIME: 11:05 Assessment/Plan Assessment/Plan Chief Complaint/Hosp Course IMPRESSION: 1. Chest pain. Assess for acute coronary syndrome with negative troponins x3 2. Atrial flutter with some slow ventricular response at times down to the 40s on beta raffi.-now improved on lower dose of BB 3. Abnormal electrocardiogram with nonspecific ST and T-wave abnormalities. 4. Coronary artery disease, status post coronary artery bypass graft surgery 2012. 5. Dyslipidemia. 6. Gout. Recc: -Tele -serial ecg's -Contineu coreg/hydralazine/imdur -Lexiscan stress test today -Continue colchicine Problems: Consultation Date/Type/Reason Admit Date/Time Apr 20, 2017 at 10:12 Initial Consult Date 04/20/17 Type of Consultation: cardiology Reason for Consultation chest pain Referring Provider: SURENDRA ROSE MD Exam/Review of Systems Vital Signs Vitals Vital Signs Date Time Temp Pulse Resp B/P Pulse Ox O2 Delivery O2 Flow Rate FiO2 04/22/17 08:29 59 04/22/17 07:52 99.0 20 118/56 95 04/20/17 20:14 Room Air 04/20/17 00:00 15.0 Intake and Output 04/21/17 04/21/17 04/22/17 15:00 23:00 07:00 Intake Total 1500 ml 350 ml Balance 1500 ml 350 ml Exam Review of Systems: CONSTITUTIONAL: No fevers, chills. PULMONARY: No sob CARDIOVASCULAR: intermittent chest pain GASTROINTESTINAL: No nausea/vomiting. GENITOURINARY: No hematuria/dysuria. MUSCULOSKELETAL: No myagias/arthalgias. PSYCHIATRIC: The patient denies depression. NEUROLOGIC: No weakness Constitutional: alert Psych: no complaints Head: normocephalic ENMT: mucosa pink and moist Neck: jvd (8 cm water), supple Respiratory: clear to auscultation Cardiovascular: regular rate and rhythm Gastrointestinal: non-tender, soft Musculoskeletal: muscle tone (normal) Extremities: edema (none) Results Result Diagram: 04/22/17 0703 04/22/17 0703 Results 24 hrs Laboratory Tests Test 04/21/17 11:27 04/21/17 16:51 04/21/17 17:17 04/21/17 21:25 Bedside Glucose 171 187 170 Troponin I 0.035 Test 04/22/17 07:03 04/22/17 07:51 White Blood Count 14.1 H Red Blood Count 4.51 L Hemoglobin 13.3 L Hematocrit 41.2 L Mean Corpuscular Volume 91.4 Mean Corpuscular Hemoglobin 29.5 Mean Corpuscular Hemoglobin Concent 32.3 Red Cell Distribution Width 12.5 Platelet Count 141 Mean Platelet Volume 11.8 H Neutrophils % 68.1 Lymphocytes % 15.5 Monocytes % 12.7 H Eosinophils % 2.8 Basophils % 0.3 Nucleated Red Blood Cells % 0.0 Neutrophils # 9.6 H Lymphocytes # 2.2 Monocytes # 1.8 H Eosinophils # 0.4 Basophils # 0.0 Nucleated Red Blood Cells # 0.0 Sodium Level 139 Potassium Level 4.5 Chloride Level 104 Carbon Dioxide Level 28 Anion Gap 12 Blood Urea Nitrogen 26 H Creatinine 1.84 H Glucose Level 145 # Calcium Level 8.9 Bedside Glucose 140 Medications Medications Current Medications Allopurinol (Zyloprim) 100 mg DAILY PO Last administered on 04/22/17 08:35; Admin Dose 100 MG; Start 04/21/17 at 09:00 Clonidine (Catapres) 0.2 mg Q8 PO Last administered on 04/22/17 05:41; Admin Dose 0.2 MG; Start 04/20/17 at 14:00 Furosemide (Lasix) 10 mg DAILY PO Last administered on 04/22/17 08:35; Admin Dose 10 MG; Start 04/21/17 at 09:00 Hydralazine HCl (Apresoline) 100 mg Q8 PO Last administered on 04/22/17 05:41 ; Admin Dose 100 MG; Start 04/20/17 at 14:00 Acetaminophen/ Hydrocodone Bitart ([place] (5/325)) 1 tab PRN PO Last administered on 04/22/17 05:39; Admin Dose 1 TAB; Start 04/20/17 at 12:00 Insulin Glargine (Lantus) 24 unit QHS SC Last administered on 04/21/17 21:28; Admin Dose 24 UNIT; Start 04/20/17 at 21:00 Linagliptin (Tradjenta) 5 mg DAILY PO Last administered on 04/22/17 08:35; Admin Dose 5 MG; Start 04/21/17 at 09:00 Nitroglycerin (Nitroglycerin (Sl Tab) 0.4 Mg) 1 tab PRN SL ; Start 04/20/17 at 12:00 Colchicine (Colchicine) 0.6 mg DAILY PRN PO GOUT PAIN; Start 04/21/17 at 09:00 Pantoprazole (Protonix Tab) 40 mg DAILY PO Last administered on 04/22/17 08:35 ; Admin Dose 40 MG; Start 04/20/17 at 12:00 Ondansetron HCl (Zofran Inj) 4 mg Q6 PRN IV NAUSEA AND/OR VOMITING; Start 04/20 at 12:00 Docusate Sodium (Colace) 100 mg BID PO Last administered on 04/22/17 08:35; Admin Dose 100 MG; Start 04/20/17 at 21:00 Acetaminophen (Tylenol Tab) 650 mg Q6 PRN PO PAIN AND OR ELEVATED TEMP Last administered on 04/20/17 21:48; Admin Dose 650 MG; Start 04/20/17 at 12:00 Morphine Sulfate (morphine) 2 mg Q6H PRN IV PAIN LEVEL 6-10; Start 04/20/17 at 12:00 Hydralazine HCl (Apresoline) 20 mg Q6 PRN IV ELEVATED BLOOD PRESSURE; Start 07/25 at 12:30 Miscellaneous Information 1 ea NOTE XX ; Start 04/20/17 at 12:30 Glucose (Glutose) 15 gm Q15M PRN PO DECREASED GLUCOSE; Start 04/20/17 at 12:30 Glucose (Glutose) 22.5 gm Q15M PRN PO DECREASED GLUCOSE; Start 04/20/17 at 12: 30 Dextrose (D50w Syringe) 25 ml Q15M PRN IV DECREASED GLUCOSE; Start 04/20/17 at 12:30 Dextrose (D50w Syringe) 50 ml Q15M PRN IV DECREASED GLUCOSE; Start 04/20/17 at 12:30 Glucagon (Glucagen) 1 mg Q15M PRN IM DECREASED GLUCOSE; Start 04/20/17 at 12:30 Glucose (Glutose) 15 gm Q15M PRN BUCCAL DECREASED GLUCOSE; Start 04/20/17 at 12 :30 Diagnostic Test (Pha) (Accu-Chek) 1 ea 02 XX Last administered on 04/21/17 02: 00; Admin Dose 1 EA; Start 04/21/17 at 02:00 Atorvastatin Calcium (Lipitor) 40 mg QHS PO Last administered on 04/21/17 21: 21; Admin Dose 40 MG; Start 04/20/17 at 21:00 Enoxaparin Sodium (Lovenox) 40 mg DAILY SC Last administered on 04/22/17 08:37 ; Admin Dose 40 MG; Start 04/20/17 at 16:48 Isosorbide Mononitrate (Imdur) 30 mg DAILY PO Last administered on 04/22/17 08 :35; Admin Dose 30 MG; Start 04/21/17 at 09:00 Carvedilol 12.5 mg 12.5 mg BID PO ; Start 04/21/17 at 21:00 Ceftriaxone Sodium (Rocephin) 50 ml @ 100 mls/hr Q24H IVPB ; Start 04/22/17 at 09:00 DERRICK MONTES Apr 22, 2017 11:10
--- NOTE | 2017-04-22 11:13 | RADRPT ---
Vent Rate: 60 bpm RR Interval: 0 msec [place] Interval: 0 msec QRS Duration: 104 msec QT Interval: 458 msec QTC Interval: 458 msec P-R-T [place]: -89 - -24 - 110 degrees Atrial flutter with 4:1 AV conduction Possible Anterior infarct , age undetermined Abnormal ECG Electronically Signed By: Grover Bartholomew [id number]
[2017-04-22] MEDS: CEFTRIAXONE 1 GM/50 ML (PMX) 50 ML IVPB SCH (12:05)
--- NOTE | 2017-04-22 13:03 | CARRPT ---
DATE OF PROCEDURE: 04/22/2017 PROCEDURE PERFORMED: Lexiscan Cardiolite stress test. INDICATION: Chest pain, assess for ischemia. BASELINE VITAL SIGNS AND ELECTROCARDIOGRAM: Pulse 58, blood pressure initially markedly elevated at 204/94. Electrocardiogram revealed atrial flutter at a rate of 58 with normal axis, normal intervals, nonspecific ST and T-wave abnormalities diffusely. PROCEDURE: The patient underwent standard Lexiscan infusion protocol over 10 seconds followed by radiolabeled tracer. The patient's test was stopped due to completion of protocol. Maximal achieved blood pressure during the test of 216/93. Maximum achieved heart rate during test of 85. ELECTROCARDIOGRAM FINDINGS: The patient did not develop any new Lexiscan induced ST or T-wave changes from baseline abnormalities. No documented PVCs. SYMPTOMS: The patient had complaints of mild shortness of breath. No chest pain. IMPRESSION: 1. No Lexiscan induced ST or T-wave changes from baseline abnormalities that are diagnostic for ischemia. 2. Complaints of shortness of breath, which resolved during recovery. 3. No chest pain. 4. No premature ventricular contractions during stress testing. 5. Report of nuclear images to follow in separate dictation. Dictated By: Rene Zavala MD /tiffanie/abimael /Document#: [id number] CC: Max Naranjo MD;*[facility]*
--- NOTE | 2017-04-22 13:53 | RADRPT ---
PROCEDURE: Lexiscan myocardial perfusion study CLINICAL INDICATION: 71 -year-old patient with coronary artery disease, complaining of chest pain. TECHNIQUE: Lexiscan 0.4 mg intravenously separate acquisition gated myocardial perfusion SPECT usi ng Tc 99m Myoview 31.1 mCi intravenously at stress and Tc-99m Myoview, 10.4 mCi intravenously at res t was performed using the rest/stress sequence. Poststress Myoview SPECT images were obtained in th e supine position. COMPARISON: No prior studies. FINDINGS: Perfusion images reveal a small to moderate size moderate in degree predominantly nonreversible perf usion defect in the inferior wall. Lexiscan post stress gated SPECT images demonstrate a dyskinetic septal wall and mild hypokinesis of the inferior wall. IMPRESSION: 1. The type and distribution of the scintigraphic abnormalities are most consistent with a small to moderate size predominantly nonreversible perfusion defect in the inferior wall. 2. Dyskinetic septal wall and mild hypokinesis of the inferior wall. 3. The left ventricle ejection fraction at stress is 45%. A call report was made to Dr. Zavala at 01:45 p.m. on April 22, 2017. RPTAT: HH .Katerin Valdez MD, Date Time Electronically viewed and signed by .Katerin Valdez MD, on 04/22/2017 13:52 .L/
[2017-04-22 14:23] LABS: ADD UMIC NO; UR ASCORBIC ACID NEGATIVE (NEGATIVE); UR BILIRUBIN (Dip) NEGATIVE (NEGATIVE); UR BLOOD (Dip) NEGATIVE (NEGATIVE); UR CLARITY CLEAR (CLEAR); UR COLOR STRAW (YELLOW); UR GLUCOSE (Dip) 2+ mg/dL (NEGATIVE); UR KETONES (Dip) NEGATIVE (NEGATIVE); UR LEUKOCYTE ESTERASE (Dip) NEGATIVE Leu/ul (NEGATIVE); UR NITRITE (Dip) NEGATIVE (NEGATIVE); UR SPECIFIC GRAVITY (Dip) 1.009 (1.003-1.030); UR TOTAL PROTEIN (Dip) NEGATIVE (NEGATIVE); UR UROBILINOGEN (Dip) NEGATIVE (NEGATIVE)
--- NOTE | 2017-04-22 16:49 | CONS ---
Date/Time of Note Date/Time of Note DATE: 04/22/17 TIME: 16:47 Assessment/Plan Assessment/Plan Chief Complaint/Hosp Course 71-year-old male comes in from home with chest pains at 1300. Was given 2 sprays of nitro and 324 of aspirin in the field. No nausea no vomiting no chills. Pain is mild to moderate intensity colicky nature with no exacerbating or alleviating factors.. his BNP has been elevated, and renal has been consulted for acute kidney injury Problems: Additional Assessment/Plan 1. acute kidney injury due to prerenal azotemia 2. Chest pain 3. h/o CAD s/p CABG 4. Hypertension- not optimally controlled 5. hyperlipidemia 6. Diabetes melitus 7. 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 Plan: continue current Chest pain work up Cr bumped to 2.12 yesterday - stopped lisinopril yesterday - Today Cr 1.8 continue hydrlazine, and Clonidine for bP control will use IV hydrlaszine prn IV abx ceftriaxone will follow up Consultation Date/Type/Reason Admit Date/Time Apr 20, 2017 at 10:12 Initial Consult Date 04/20/17 Type of Consultation: NEPHROLOGY Referring Provider: SURENDRA ROSE MD Exam/Review of Systems Vital Signs Vitals Vital Signs Date Time Temp Pulse Resp B/P Pulse Ox O2 Delivery O2 Flow Rate FiO2 04/22/17 16:00 71 04/22/17 15:58 98.0 20 105/35 97 04/20/17 20:14 Room Air 04/20/17 00:00 15.0 Intake and Output 04/21/17 04/21/17 04/22/17 15:00 23:00 07:00 Intake Total 1500 ml 350 ml Balance 1500 ml 350 ml Exam Constitutional: alert Neck: non-tender, supple Respiratory: clear to auscultation, diminished breath sounds, normal air movement Cardiovascular: nl pulses, regular rate and rhythm Gastrointestinal: nl liver, spleen, non-tender, soft Musculoskeletal: nl extremities to inspection, nl gait and stance Neurological: BOTTLE LABELER II-XII intact, nl mental status, nl speech, nl strength Results Result Diagram: 04/22/17 0703 04/22/17 0703 Results 24 hrs Laboratory Tests Test 04/21/17 16:51 9/13/17 17:17 04/21/17 21:25 04/22/17 07:03 Troponin I 0.035 Bedside Glucose 187 170 White Blood Count 14.1 H Red Blood Count 4.51 L Hemoglobin 13.3 L Hematocrit 41.2 L Mean Corpuscular Volume 91.4 Mean Corpuscular Hemoglobin 29.5 Mean Corpuscular Hemoglobin Concent 32.3 Red Cell Distribution Width 12.5 Platelet Count 141 Mean Platelet Volume 11.8 H Neutrophils % 68.1 Lymphocytes % 15.5 Monocytes % 12.7 H Eosinophils % 2.8 Basophils % 0.3 Nucleated Red Blood Cells % 0.0 Neutrophils # 9.6 H Lymphocytes # 2.2 Monocytes # 1.8 H Eosinophils # 0.4 Basophils # 0.0 Nucleated Red Blood Cells # 0.0 Sodium Level 139 Potassium Level 4.5 Chloride Level 104 Carbon Dioxide Level 28 Anion Gap 12 Blood Urea Nitrogen 26 H Creatinine 1.84 H Glucose Level 145 # Calcium Level 8.9 Test 04/22/17 07:51 04/22/17 11:56 04/22/17 13:39 Bedside Glucose 140 204 Urine Color STRAW Urine Clarity CLEAR Urine pH 7.0 Urine Specific [place] 1.009 Urine Ketones NEGATIVE Urine Nitrite NEGATIVE Urine Bilirubin NEGATIVE Urine Urobilinogen NEGATIVE Urine Leukocyte Esterase NEGATIVE Urine Hemoglobin NEGATIVE Urine Glucose 2+ H Urine Total Protein NEGATIVE Medications Medications Current Medications Allopurinol (Zyloprim) 100 mg DAILY PO Last administered on 04/22/17 08:35; Admin Dose 100 MG; Start 04/21/17 at 09:00 Clonidine (Catapres) 0.2 mg Q8 PO Last administered on 04/22/17 12:17; Admin Dose 0.2 MG; Start 04/20/17 at 14:00 Furosemide (Lasix) 10 mg DAILY PO Last administered on 04/22/17 08:35; Admin Dose 10 MG; Start 04/21/17 at 09:00 Hydralazine HCl (Apresoline) 100 mg Q8 PO Last administered on 04/22/17 12:17 ; Admin Dose 100 MG; Start 04/20/17 at 14:00 Acetaminophen/ Hydrocodone Bitart ([place] (5/325)) 1 tab PRN PO Last administered on 04/22/17 12:06; Admin Dose 1 TAB; Start 04/20/17 at 12:00 Insulin Glargine (Lantus) 24 unit QHS SC Last administered on 04/21/17 21:28; Admin Dose 24 UNIT; Start 04/20/17 at 21:00 Linagliptin (Tradjenta) 5 mg DAILY PO Last administered on 04/22/17 08:35; Admin Dose 5 MG; Start 04/21/17 at 09:00 Nitroglycerin (Nitroglycerin (Sl Tab) 0.4 Mg) 1 tab PRN SL ; Start 04/20/17 at 12:00 Colchicine (Colchicine) 0.6 mg DAILY PRN PO GOUT PAIN; Start 04/21/17 at 09:00 Pantoprazole (Protonix Tab) 40 mg DAILY PO Last administered on 04/22/17 08:35 ; Admin Dose 40 MG; Start 04/20/17 at 12:00 Ondansetron HCl (Zofran Inj) 4 mg Q6 PRN IV NAUSEA AND/OR VOMITING; Start 04/20 at 12:00 Docusate Sodium (Colace) 100 mg BID PO Last administered on 04/22/17 08:35; Admin Dose 100 MG; Start 04/20/17 at 21:00 Acetaminophen (Tylenol Tab) 650 mg Q6 PRN PO PAIN AND OR ELEVATED TEMP Last administered on 04/20/17 21:48; Admin Dose 650 MG; Start 04/20/17 at 12:00 Morphine Sulfate (morphine) 2 mg Q6H PRN IV PAIN LEVEL 6-10; Start 04/20/17 at 12:00 Hydralazine HCl (Apresoline) 20 mg Q6 PRN IV ELEVATED BLOOD PRESSURE; Start 07/25 at 12:30 Miscellaneous Information 1 ea NOTE XX ; Start 04/20/17 at 12:30 Glucose (Glutose) 15 gm Q15M PRN PO DECREASED GLUCOSE; Start 04/20/17 at 12:30 Glucose (Glutose) 22.5 gm Q15M PRN PO DECREASED GLUCOSE; Start 04/20/17 at 12: 30 Dextrose (D50w Syringe) 25 ml Q15M PRN IV DECREASED GLUCOSE; Start 04/20/17 at 12:30 Dextrose (D50w Syringe) 50 ml Q15M PRN IV DECREASED GLUCOSE; Start 04/20/17 at 12:30 Glucagon (Glucagen) 1 mg Q15M PRN IM DECREASED GLUCOSE; Start 04/20/17 at 12:30 Glucose (Glutose) 15 gm Q15M PRN BUCCAL DECREASED GLUCOSE; Start 04/20/17 at 12 :30 Diagnostic Test (Pha) (Accu-Chek) 1 ea 02 XX Last administered on 04/21/17 02: 00; Admin Dose 1 EA; Start 04/21/17 at 02:00 Atorvastatin Calcium (Lipitor) 40 mg QHS PO Last administered on 04/21/17 21: 21; Admin Dose 40 MG; Start 04/20/17 at 21:00 Enoxaparin Sodium (Lovenox) 40 mg DAILY SC Last administered on 04/22/17 08:37 ; Admin Dose 40 MG; Start 04/20/17 at 16:48 Isosorbide Mononitrate (Imdur) 30 mg DAILY PO Last administered on 04/22/17 08 :35; Admin Dose 30 MG; Start 04/21/17 at 09:00 Carvedilol 12.5 mg 12.5 mg BID PO ; Start 04/21/17 at 21:00 Ceftriaxone Sodium (Rocephin) 50 ml @ 100 mls/hr Q24H IVPB Last administered on 04/22/17 12:05; Admin Dose 100 MLS/HR; Start 04/22/17 at 09:00 LORENZA GIBSON MD Apr 22, 2017 16:49
--- NOTE | 2017-04-22 19:00 | PN ---
Date/Time of Note Date/Time of Note DATE: 04/22/17 TIME: 18:52 Assessment/Plan VTE Prophylaxis VTE Prophylaxis Intervention: LMWH, SCD's Lines/Catheters IV Catheter Type (from Nrsg): Saline Lock Urinary Cath still in place: No Assessment/Plan Assessment/Plan -Febrile Condition - ID consult- Dr Castle notified - Blood C/S - Urine- C/S, UA - cxr- -Chest pain- none at present - cont on Tele - per cardiology consult- Dr Montaño - 1800cAL ada, Low Cholesterol, low Na S/P CABG X 4 Vessels HTN- improved - resume home meds HYPERLIPIDEMIA - cont Atorvastatin 40 mg po QHS - weight management - Dietary consult DM - Glycemic control - Hgb am - 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 Dw Dr Silva Exam/Review of Systems Vital Signs Vitals Vital Signs Date Time Temp Pulse Resp B/P Pulse Ox O2 Delivery O2 Flow Rate FiO2 04/22/17 16:00 71 04/22/17 15:58 98.0 20 105/35 97 04/20/17 20:14 Room Air 04/20/17 00:00 15.0 Intake and Output 04/21/17 04/21/17 04/22/17 15:00 23:00 07:00 Intake Total 1500 ml 350 ml Balance 1500 ml 350 ml Exam Constitutional: alert, obese, oriented Respiratory: diminished breath sounds Gastrointestinal: non-tender, soft Musculoskeletal: nl extremities to inspection Extremities: edema, normal pulses (trace BLE) Neurological: nl mental status, nl speech Results Result Diagram: 04/22/17 0703 04/22/17 0703 Results 24 hrs Laboratory Tests Test 04/21/17 21:25 04/22/17 07:03 04/22/17 07:51 04/22/17 11:56 Bedside Glucose 170 140 204 White Blood Count 14.1 H Red Blood Count 4.51 L Hemoglobin 13.3 L Hematocrit 41.2 L Mean Corpuscular Volume 91.4 Mean Corpuscular Hemoglobin 29.5 Mean Corpuscular Hemoglobin Concent 32.3 Red Cell Distribution Width 12.5 Platelet Count 141 Mean Platelet Volume 11.8 H Neutrophils % 68.1 Lymphocytes % 15.5 Monocytes % 12.7 H Eosinophils % 2.8 Basophils % 0.3 Nucleated Red Blood Cells % 0.0 Neutrophils # 9.6 H Lymphocytes # 2.2 Monocytes # 1.8 H Eosinophils # 0.4 Basophils # 0.0 Nucleated Red Blood Cells # 0.0 Sodium Level 139 Potassium Level 4.5 Chloride Level 104 Carbon Dioxide Level 28 Anion Gap 12 Blood Urea Nitrogen 26 H Creatinine 1.84 H Glucose Level 145 # Calcium Level 8.9 Test 04/22/17 13:39 04/22/17 17:27 Urine Color STRAW Urine Clarity CLEAR Urine pH 7.0 Urine Specific [place] 1.009 Urine Ketones NEGATIVE Urine Nitrite NEGATIVE Urine Bilirubin NEGATIVE Urine Urobilinogen NEGATIVE Urine Leukocyte Esterase NEGATIVE Urine Hemoglobin NEGATIVE Urine Glucose 2+ H Urine Total Protein NEGATIVE Bedside Glucose 266 H Medications Medications Current Medications Allopurinol (Zyloprim) 100 mg DAILY PO Last administered on 04/22/17 08:35; Admin Dose 100 MG; Start 04/21/17 at 09:00 Clonidine (Catapres) 0.2 mg Q8 PO Last administered on 04/22/17 12:17; Admin Dose 0.2 MG; Start 04/20/17 at 14:00 Furosemide (Lasix) 10 mg DAILY PO Last administered on 04/22/17 08:35; Admin Dose 10 MG; Start 04/21/17 at 09:00 Hydralazine HCl (Apresoline) 100 mg Q8 PO Last administered on 04/22/17 12:17 ; Admin Dose 100 MG; Start 04/20/17 at 14:00 Acetaminophen/ Hydrocodone Bitart ([place] (5/325)) 1 tab PRN PO Last administered on 04/22/17 12:06; Admin Dose 1 TAB; Start 04/20/17 at 12:00 Insulin Glargine (Lantus) 24 unit QHS SC Last administered on 04/21/17 21:28; Admin Dose 24 UNIT; Start 04/20/17 at 21:00 Linagliptin (Tradjenta) 5 mg DAILY PO Last administered on 04/22/17 08:35; Admin Dose 5 MG; Start 04/21/17 at 09:00 Nitroglycerin (Nitroglycerin (Sl Tab) 0.4 Mg) 1 tab PRN SL ; Start 04/20/17 at 12:00 Colchicine (Colchicine) 0.6 mg DAILY PRN PO GOUT PAIN; Start 04/21/17 at 09:00 Pantoprazole (Protonix Tab) 40 mg DAILY PO Last administered on 04/22/17 08:35 ; Admin Dose 40 MG; Start 04/20/17 at 12:00 Ondansetron HCl (Zofran Inj) 4 mg Q6 PRN IV NAUSEA AND/OR VOMITING; Start 04/20 at 12:00 Docusate Sodium (Colace) 100 mg BID PO Last administered on 04/22/17 08:35; Admin Dose 100 MG; Start 04/20/17 at 21:00 Acetaminophen (Tylenol Tab) 650 mg Q6 PRN PO PAIN AND OR ELEVATED TEMP Last administered on 04/20/17 21:48; Admin Dose 650 MG; Start 04/20/17 at 12:00 Morphine Sulfate (morphine) 2 mg Q6H PRN IV PAIN LEVEL 6-10; Start 04/20/17 at 12:00 Hydralazine HCl (Apresoline) 20 mg Q6 PRN IV ELEVATED BLOOD PRESSURE; Start 07/25 at 12:30 Miscellaneous Information 1 ea NOTE XX ; Start 04/20/17 at 12:30 Glucose (Glutose) 15 gm Q15M PRN PO DECREASED GLUCOSE; Start 04/20/17 at 12:30 Glucose (Glutose) 22.5 gm Q15M PRN PO DECREASED GLUCOSE; Start 04/20/17 at 12: 30 Dextrose (D50w Syringe) 25 ml Q15M PRN IV DECREASED GLUCOSE; Start 04/20/17 at 12:30 Dextrose (D50w Syringe) 50 ml Q15M PRN IV DECREASED GLUCOSE; Start 04/20/17 at 12:30 Glucagon (Glucagen) 1 mg Q15M PRN IM DECREASED GLUCOSE; Start 04/20/17 at 12:30 Glucose (Glutose) 15 gm Q15M PRN BUCCAL DECREASED GLUCOSE; Start 04/20/17 at 12 :30 Diagnostic Test (Pha) (Accu-Chek) 1 ea 02 XX Last administered on 04/21/17 02: 00; Admin Dose 1 EA; Start 04/21/17 at 02:00 Atorvastatin Calcium (Lipitor) 40 mg QHS PO Last administered on 04/21/17 21: 21; Admin Dose 40 MG; Start 04/20/17 at 21:00 Enoxaparin Sodium (Lovenox) 40 mg DAILY SC Last administered on 04/22/17 08:37 ; Admin Dose 40 MG; Start 04/20/17 at 16:48 Isosorbide Mononitrate (Imdur) 30 mg DAILY PO Last administered on 04/22/17 08 :35; Admin Dose 30 MG; Start 04/21/17 at 09:00 Carvedilol 12.5 mg 12.5 mg BID PO ; Start 04/21/17 at 21:00 Ceftriaxone Sodium (Rocephin) 50 ml @ 100 mls/hr Q24H IVPB Last administered on 04/22/17 12:05; Admin Dose 100 MLS/HR; Start 04/22/17 at 09:00 LOPEZ GONZALEZ Apr 22, 2017 19:00
[2017-04-22] MEDS: ATORVASTATIN 40 MG TAB PO SCH (21:09)
[2017-04-22] MEDS: ACETAMINOPHEN 325 MG TAB PO PRN (21:13)
[2017-04-22] MEDS: INSULIN GLARGINE [LANtus] 3 ML PEN SC SCH (21:14)
--- NOTE | 2017-04-22 21:48 | RADRPT ---
Echocardiogram Report Patient Name: ARNULFO VARGAS Gender: Male Date: 1945 Study Date: 22-Apr-2017 Help Desk Engineer: Raulito [facility] Location: 5536 Ref. Physician: DERRICK ZAVALA Quality: Adequate Procedures: Transthoracic echocardiogram with complete 2D, M-Mode, and doppler examination. Indications: Chest Pain. 2D/M Mode Doppler Measurement Value Normal Ranges Measurement Value Normal Ranges LVIDd 2D 4.8 3.5 - 5.6 cm AV Peak James 1.1 m/sec LVIDs 2D 3.7 2.1 - 4.1 cm AV Peak PG 5.3 mmHg LVPWd 2D 1.2 0.6 - 1.1 cm LVOT Peak James 0.9 m/sec IVSd 2D 1.3 0.6 - 1.1 cm LVOT Peak PG 3.2 mmHg AoR Diam 2D 2.8 2.0 - 3.7 cm MV E Peak James 1.4 m/sec EDV 2D 108.0 cm3 MV A Peak James 0.7 m/sec ESV 2D 50.3 cm3 MV E/A 1.9 MV Decel Time 89 msec MV Decel Iron 16 MV E/A 1.9 Findings Left Ventricle: Normal left ventricular cavity size. Mild concentric left ventricular hypertrophy. Mild global left ventricular systolic dysfunction. Ejection fraction is visually estimated at 4550 %. Right Ventricle: Normal right ventricular size. Normal right ventricular systolic function. Left Atrium: The left atrium is normal in size. Right Atrium: The right atrium is normal in size. Mitral Valve: Mild mitral leaflet calcification. Mild mitral annular calcification. Trace mitral regurgitation. Aortic Valve: Aortic cusps appear mildly calcified. Trace aortic valve regurgitation. Tricuspid Valve: Normal appearance of the tricuspid valve. Unable to obtain RVSP due to minimal presence of tricuspid regurgitation. There is trace tricuspid regurgitation. Pulmonic Valve: Pulmonic valve not well visualized. There is trace pulmonic regurgitation. Pericardium: Normal pericardium with no significant pericardial effusion. Aorta: Normal aortic root. IVC: Dilated IVC with respiratory collapse consistent with elevated right atrial pressure. Conclusions 1.Normal left ventricular cavity size. Mild concentric left ventricular hypertrophy. Mild global left ventricular systolic dysfunction. Ejection fraction is visually estimated at 45-50 %. 2.Mild mitral leaflet calcification. Mild mitral annular calcification. Trace mitral regurgitation. 3.Aortic cusps appear mildly calcified. Trace aortic valve regurgitation. 4.Normal appearance of the tricuspid valve. Unable to obtain RVSP due to minimal presence of tricuspid regurgitation. There is trace tricuspid regurgitation. 5.Pulmonic valve not well visualized. There is trace pulmonic regurgitation. Electronically Signed By: Derrick Zavala 22-Apr-2017 21:47:15 -0700 Patient Name: ARNULFO VARGAS Study Date: 22-Apr-2017 [id number]
[2017-04-23] VITALS (11 sets, daily range): BP systolic 113–152; BP diastolic 54–72; PULSE 61–81; RESP 18–20
[2017-04-23] MEDS: ACCU-CHEK XX SCH (02:00)
[2017-04-23 06:56] LABS: ABNORMAL IP MESSAGE 1; BASOPHILS % 0.3 % (0.0-2.0); EOSINOPHILS # 0.4 10^3/ul (0.0-0.5); EOSINOPHILS % 3.1 % (0.0-7.0); HEMOGLOBIN 13.4 g/dl (14.0-18.0); LYMPHOCYTES # 2.1 10^3/ul (0.8-2.9); LYMPHOCYTES % 15.9 % (15.0-51.0); MEAN CORPUSCULAR HEMOGLOBIN 29.1 pg (29.0-33.0); MEAN CORPUSCULAR HGB CONC 32.7 g/dl (32.0-37.0); MEAN CORPUSCULAR VOLUME 89.1 fl (82.0-101.0); MEAN PLATELET VOLUME 11.1 fl (7.4-10.4); MONOCYTE # 1.6 10^3/ul (0.3-0.9); NEUTROPHIL # 8.9 10^3/ul (1.6-7.5); NEUTROPHILS % 68.2 % (39.0-77.0); PLATELET COUNT 147 10^3/UL (140-415); POSITIVE DIFF @See below; RED CELL DISTRIBUTION WIDTH 12.6 % (11.5-14.5); WHITE BLOOD COUNT 13.1 10^3/ul (4.8-10.8)
--- NOTE | 2017-04-23 06:59 | CONS ---
DATE OF ADMISSION: 04/20/2017 DATE OF CONSULTATION: 04/20/2017 REQUESTING PHYSICIAN: Max Naranjo MD REASON FOR CONSULTATION: Chest pain, patient has documented coronary artery disease. PATIENT PROFILE AND HISTORY OF PRESENT ILLNESS: The patient is a 71-year-old male who presented to the emergency department on previous evening complaining of chest pain. He was given 2 sprays of sublingual nitroglycerin en route to the hospital. The chest pain was not severe but had a moderate intensity and a colicky quality. It was localized to the left upper chest and axilla or subaxilla space. The chest pain appeared to be sharp with motion, with questionable response to sublingual nitroglycerin. The symptoms persisted off and on throughout the night. The electrocardiogram did not show any acute changes and subsequently the first troponin value was within normal limits. A second troponin level was not ordered. A chest x-ray was within normal limits and a lower extremity venous ultrasound showed no DVT. REVIEW OF SYSTEMS: GENERAL: Positive for off and on localized left chest discomfort, generalized sensation of discomfort. HEENT: The patient denies blurry vision, nasal drip, cough, wheezing. RESPIRATORY: Denies shortness of breath. EXTREMITIES: Denies pain or discomfort with motion. Patient complains some swelling of the lower extremities. He denies arthritis pain of the hands or lower extremities. CARDIOVASCULAR: Chest pain as above, questionably angina pectoris. The patient denies shortness of breath, palpitations, dizziness, lightheadedness. GASTROINTESTINAL: No pain. PSYCHIATRIC: The patient denies anxiety, depression, insomnia. PAST MEDICAL HISTORY/COMORBID CONDITIONS: Atherosclerotic coronary artery disease, coronary artery bypass surgery (details unavailable), diabetes mellitus type 2, hypertension, gout, gastroesophageal reflux disease. ALLERGIES: NO KNOWN DRUG ALLERGIES. FAMILY HISTORY: Unavailable at this time. MEDICATION: Azithromycin 250 mg by mouth(Z-francine as directed), hydrocodone/acetaminophen 5/325 mg as needed for pain, insulin glargine (Lantus) 24 units at bedtime, furosemide 20 mg(1/2 tablet daily), clonidine 0.2 mg every 8 hours, linagliptin 5 mg daily, hydralazine 100 mg every 8 hours, allopurinol 100 mg daily, albuterol sulfate 2 puffs every 4 hours as needed for wheezing, omeprazole 20 mg daily q.a.m., glimepiride 2 mg twice a day, colchicine 0.6 mg b.i.d. or t.i.d. as needed for gouty arthritis, carvedilol 25 mg t.i.d., simvastatin 40 mg daily at bedtime, lisinopril 40 mg twice a day, nitroglycerin 0.4 mg sublingual p.r.n. for chest pain. HABITS: Alcohol use: No. Substance use: No. Tobacco use: No (the patient has been a smoker in the past for 44 years, approximately 1/2 pack daily, he quit smoking 4 years ago after bypass surgery). PHYSICAL EXAMINATION: GENERAL: The patient is an overweight male who appears to be uncomfortable and concerned but in no acute physical distress. He still endorses a localized left chest and axilla discomfort. He is not diaphoretic. His skin is warm and dry. HEENT: Normocephalic. Eyes: PERRL, EOMI. Conjunctivae and eyelids are normal, sclerae anicteric. Oral mucosa moist with no cyanosis. NECK: Supple without thyromegaly or lymphadenopathy. Trachea is midline, there is no jugular vein distention. Carotid pulses normal. No bruits. CARDIAC: Symmetrical with equal expansions. There is a well healed midline sternotomy surgical incision. LUNGS: Clear to auscultation bilaterally. There is a localized, left side lower area of dry crackles at the base. ABDOMEN: Soft, mildly obese, nontender, not distended. No hepatosplenomegaly. EXTREMITIES: No edema, cyanosis or clubbing. Peripheral pulses are poorly palpable. LABORATORY: EKG: Atrial flutter with variable AV conduction resulting in slightly irregular rhythm. Hemoglobin 14.3, hematocrit 43%, WBC 13,500; platelet count 141,000. Sodium 138, potassium 4.1, chloride 103, CO2 is 30, creatinine 1.66, BUN 18, glucose is 211. BNP is 419(mildly elevated). IMPRESSION: 1. Chest pain, appears nonspecific. 2. Documented coronary artery disease. 3. Status post coronary artery bypass surgery. 4. Hypertension, uncontrolled. 5. Hypercholesterolemia. 6. History of tobacco use. 7. Abnormal renal function - possible chronic kidney disease. 8. Gastroesophageal reflux disease. 9. Gout. 10. Atrial flutter, possibly persistent with variable atrioventricular block. PLAN: 1. Rule out acute myocardial infarction. 2. Aggressive blood pressure treatment. 3. Obtain additional troponin values. Thank you very much for this consultation. At this time, the patient appears to be with only mild symptoms of chest discomfort and further tests may be required. Dictated By: CHRISTY TOBIN MD /tiffanie/katie Kendall#: [id number]/Document#: [id number] CC: Max Naranjo MD; Dr. Johanne Montez;*[facility]*
[2017-04-23 07:30] LABS: CALCIUM 8.7 mg/dl (8.4-10.2); CREATININE 1.61 mg/dl (0.61-1.24); POTASSIUM 3.7 mmol/L (3.5-5.1)
[2017-04-23] MEDS: DOCUSATE SODIUM 100 MG CAP PO SCH ×2 (08:20→21:05)
[2017-04-23] MEDS: FUROSEMIDE 20 MG TAB PO SCH (08:21)
[2017-04-23] MEDS: ALLOPURINOL 100 MG TAB PO SCH (08:21)
[2017-04-23] MEDS: PANTOPRAZOLE (EC) 40 MG TAB PO SCH (08:21)
[2017-04-23] MEDS: ISOSORBIDE MONONITRATE(SR)30 MG TAB PO SCH (08:21)
[2017-04-23] MEDS: LINAGLIPTIN 5 MG TABLET PO SCH (08:21)
[2017-04-23] MEDS: INSULIN ASPART [NOVOLOG] 3 ML PEN SC SCH ×8 (08:23→21:12)
[2017-04-23] MEDS: ENOXAPARIN 40 MG/0.4 ML SYG SC SCH (08:24)
[2017-04-23] MEDS: CEFTRIAXONE 1 GM/50 ML (PMX) 50 ML IVPB SCH (08:27)
[2017-04-23] MEDS: HYDROCODONE/APAP (5/325) TAB PO SCH ×2 (08:28→18:48)
--- NOTE | 2017-04-23 10:03 | PN ---
Date/Time of Note Date/Time of Note DATE: 04/23/17 TIME: 09:57 Assessment/Plan VTE Prophylaxis VTE Prophylaxis Intervention: LMWH Lines/Catheters IV Catheter Type (from [facility]): [facility] Urinary Cath still in place: No Assessment/Plan Assessment/Plan -Left knee swelling/redness- possible septic joint - XRAY left knee - us left knee - ortho consult - rheumatology -Febrile Condition- afebrile at present - per ID consult- Dr Castle - Blood C/S - Urine- C/S, UA - cxr - Atrial flutter with some slow ventricular response at times of 40s on beta raffi.-now improved on lower dose of BB, HR 61 - Cardiology follows -Chest pain- none at present - cont on Tele - per cardiology consult- Dr Montaño - 1800cAL ada, Low Cholesterol, low Na S/P CABG X 4 Vessels HTN- improved HYPERLIPIDEMIA - cont Atorvastatin 40 mg po QHS - weight management - Dietary consult DM - Glycemic control - 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 Hernandez Silva Subjective 24 Hr Interval Summary Respiratory: no complaints Cardiovascular: no complaints Gastrointestinal: no complaints Genitourinary: no complaints Musculoskeletal: no complaints Skin: bruising Neurologic: no complaints Exam/Review of Systems Vital Signs Vitals Vital Signs Date Time Temp Pulse Resp B/P Pulse Ox O2 Delivery O2 Flow Rate FiO2 04/23/17 08:02 66 04/23/17 07:37 97.8 19 125/59 96 04/20/17 20:14 Room Air 04/20/17 00:00 15.0 Exam Constitutional: alert, oriented, well developed Respiratory: clear to auscultation, normal air movement Cardiovascular: nl pulses, regular rate and rhythm Gastrointestinal: non-tender, soft Musculoskeletal: nl extremities to inspection Extremities: normal pulses Neurological: nl mental status, nl speech Results Result Diagram: 04/23/17 0634 04/23/17 0634 Results 24 hrs Laboratory Tests Test 04/22/17 11:56 04/22/17 13:39 04/22/17 17:27 04/22/17 20:41 Bedside Glucose 204 266 H 182 Urine Color STRAW Urine Clarity CLEAR Urine pH 7.0 Urine Specific [place] 1.009 Urine Ketones NEGATIVE Urine Nitrite NEGATIVE Urine Bilirubin NEGATIVE Urine Urobilinogen NEGATIVE Urine Leukocyte Esterase NEGATIVE Urine Hemoglobin NEGATIVE Urine Glucose 2+ H Urine Total Protein NEGATIVE Test 04/23/17 06:34 04/23/17 07:35 White Blood Count 13.1 H Red Blood Count 4.60 L Hemoglobin 13.4 L Hematocrit 41.0 L Mean Corpuscular Volume 89.1 Mean Corpuscular Hemoglobin 29.1 Mean Corpuscular Hemoglobin Concent 32.7 Red Cell Distribution Width 12.6 Platelet Count 147 Mean Platelet Volume 11.1 H Neutrophils % 68.2 Lymphocytes % 15.9 Monocytes % 12.0 H Eosinophils % 3.1 Basophils % 0.3 Nucleated Red Blood Cells % 0.0 Neutrophils # 8.9 H Lymphocytes # 2.1 Monocytes # 1.6 H Eosinophils # 0.4 Basophils # 0.0 Nucleated Red Blood Cells # 0.0 Sodium Level 135 Potassium Level 3.7 Chloride Level 103 Carbon Dioxide Level 26 Anion Gap 10 Blood Urea Nitrogen 21 H Creatinine 1.61 H Glucose Level 195 Calcium Level 8.7 Bedside Glucose 166 Medications Medications Current Medications Allopurinol (Zyloprim) 100 mg DAILY PO Last administered on 04/23/17 08:21; Admin Dose 100 MG; Start 04/21/17 at 09:00 Clonidine (Catapres) 0.2 mg Q8 PO Last administered on 04/23/17 06:34; Admin Dose 0.2 MG; Start 04/20/17 at 14:00 Furosemide (Lasix) 10 mg DAILY PO Last administered on 04/23/17 08:21; Admin Dose 10 MG; Start 04/21/17 at 09:00 Hydralazine HCl (Apresoline) 100 mg Q8 PO Last administered on 04/23/17 06:34 ; Admin Dose 100 MG; Start 04/20/17 at 14:00 Acetaminophen/ Hydrocodone Bitart ([place] (5/325)) 1 tab PRN PO Last administered on 04/23/17 08:28; Admin Dose 1 TAB; Start 04/20/17 at 12:00 Insulin Glargine (Lantus) 24 unit QHS SC Last administered on 04/22/17 21:14; Admin Dose 24 UNIT; Start 04/20/17 at 21:00 Linagliptin (Tradjenta) 5 mg DAILY PO Last administered on 04/23/17 08:21; Admin Dose 5 MG; Start 04/21/17 at 09:00 Nitroglycerin (Nitroglycerin (Sl Tab) 0.4 Mg) 1 tab PRN SL ; Start 04/20/17 at 12:00 Colchicine (Colchicine) 0.6 mg DAILY PRN PO GOUT PAIN; Start 04/21/17 at 09:00 Pantoprazole (Protonix Tab) 40 mg DAILY PO Last administered on 04/23/17 08:21 ; Admin Dose 40 MG; Start 04/20/17 at 12:00 Ondansetron HCl (Zofran Inj) 4 mg Q6 PRN IV NAUSEA AND/OR VOMITING; Start 04/20 at 12:00 Docusate Sodium (Colace) 100 mg BID PO Last administered on 04/23/17 08:20; Admin Dose 100 MG; Start 04/20/17 at 21:00 Acetaminophen (Tylenol Tab) 650 mg Q6 PRN PO PAIN AND OR ELEVATED TEMP Last administered on 04/22/17 21:13; Admin Dose 650 MG; Start 04/20/17 at 12:00 Morphine Sulfate (morphine) 2 mg Q6H PRN IV PAIN LEVEL 6-10; Start 04/20/17 at 12:00 Hydralazine HCl (Apresoline) 20 mg Q6 PRN IV ELEVATED BLOOD PRESSURE; Start 07/25 at 12:30 Miscellaneous Information 1 ea NOTE XX ; Start 04/20/17 at 12:30 Glucose (Glutose) 15 gm Q15M PRN PO DECREASED GLUCOSE; Start 04/20/17 at 12:30 Glucose (Glutose) 22.5 gm Q15M PRN PO DECREASED GLUCOSE; Start 04/20/17 at 12: 30 Dextrose (D50w Syringe) 25 ml Q15M PRN IV DECREASED GLUCOSE; Start 04/20/17 at 12:30 Dextrose (D50w Syringe) 50 ml Q15M PRN IV DECREASED GLUCOSE; Start 04/20/17 at 12:30 Glucagon (Glucagen) 1 mg Q15M PRN IM DECREASED GLUCOSE; Start 04/20/17 at 12:30 Glucose (Glutose) 15 gm Q15M PRN BUCCAL DECREASED GLUCOSE; Start 04/20/17 at 12 :30 Diagnostic Test (Pha) (Accu-Chek) 1 ea 02 XX Last administered on 04/21/17 02: 00; Admin Dose 1 EA; Start 04/21/17 at 02:00 Atorvastatin Calcium (Lipitor) 40 mg QHS PO Last administered on 04/22/17 21: 09; Admin Dose 40 MG; Start 04/20/17 at 21:00 Enoxaparin Sodium (Lovenox) 40 mg DAILY SC Last administered on 04/23/17 08:24 ; Admin Dose 40 MG; Start 04/20/17 at 16:48 Isosorbide Mononitrate (Imdur) 30 mg DAILY PO Last administered on 04/23/17 08 :21; Admin Dose 30 MG; Start 04/21/17 at 09:00 Carvedilol 12.5 mg 12.5 mg BID PO ; Start 04/21/17 at 21:00 Ceftriaxone Sodium (Rocephin) 50 ml @ 100 mls/hr Q24H IVPB Last administered on 04/23/17 08:27; Admin Dose 100 MLS/HR; Start 04/22/17 at 09:00 LOPEZ GONZALEZ Apr 23, 2017 10:03
--- NOTE | 2017-04-23 11:40 | RADRPT ---
PROCEDURE: XR Knee. CLINICAL INDICATION: Pain. TECHNIQUE: AP, lateral and oblique views of the left knee were obtained. The images reviewed on a PACS workstation. COMPARISON: None. FINDINGS: The bones appear intact, with no evidence of fracture, erosion, demineralization, or dislocation. Th e alignment of the femorotibial and patellofemoral joints appears normal. A small joint effusion is present with moderate tricompartmental osteoarthritis with joint space sebastián rowing. Vascular clips are also seen. IMPRESSION: No fracture or dislocation. Small joint effusion, moderate tricompartmental osteoarthritis, and vasc ular clips. RPTAT: QQ .La Dodge MD, MD Date Time Electronically viewed and signed by .La Dodge MD, on 04/23/2017 11:40 .F/
[2017-04-23] MEDS ORDERED: BETAMET NA PHOS/AC(6 MG/ML) 5ML INJ INJ ONE (11:50)
[2017-04-23] MEDS ORDERED: BUPIVACAINE 0.5%/EPI (SDV) 30 ML INJ INJ ONE (11:50)
[2017-04-23] MEDS ORDERED: predniSONE 10 MG TAB PO ONE (12:00)
[2017-04-23] MEDS ORDERED: BUPIVACAINE 0.5%/EPI (SDV) 10 ML INJ INJ SCH (12:30)
--- NOTE | 2017-04-23 15:09 | CONS ---
Date/Time of Note Date/Time of Note DATE: 04/23/17 TIME: 15:08 Assessment/Plan Assessment/Plan Additional Assessment/Plan 1. Chest pain. Assess for acute coronary syndrome with negative troponins x3 - small mostly irreversible changes on Shanda - MED Rx advised 2. Atrial flutter with some slow ventricular response at times down to the 40s on beta raffi.-now improved on lower dose of BB - better, no indication for pacer now 3. Abnormal electrocardiogram with nonspecific ST and T-wave abnormalities - A. [place] noted 4. Coronary artery disease, status post coronary artery bypass graft surgery 2012- med rx asdvised. 5. Dyslipidemia. 6. Gout. Consultation Date/Type/Reason Admit Date/Time Apr 20, 2017 at 10:12 Initial Consult Date 04/20/17 Type of Consultation: NEPHROLOGY Referring Provider: SURENDRA ROSE MD 24 HR Interval Summary Free Text/Dictation NO acute change - HR well maintained - no CP now ROS: No fever, no chills, no nausea, no vomiting, no diarrhea/constipation No recent weight changes No chest pain, no PND, no orthopnea No dizziness, blurred vision No thirst, no heat or cold intolerance Exam/Review of Systems Vital Signs Vitals Vital Signs Date Time Temp Pulse Resp B/P Pulse Ox O2 Delivery O2 Flow Rate FiO2 04/23/17 13:05 61 04/23/17 11:51 97.8 20 113/54 97 04/20/17 20:14 Room Air 04/20/17 00:00 15.0 Exam General: WN/WD/NAD, AOx 3 HEENT: Unicetric/atraumatic/EOMI (follow commands) NECK: JVD elevated, no thyromegaly Lymph: no lymphadenopathy HEART: regular with OCC IRREG no S3, II/ systolic murmur at apex LUNGS: Coarse sounds ABD: soft, NT, ND, +BS : Intact Neuro: non focal SKIN: chronic changes EXT: trace edema Results Result Diagram: 04/23/17 0634 04/23/17 0634 Results 24 hrs Laboratory Tests Test 04/22/17 17:27 04/22/17 20:41 04/23/17 06:34 04/23/17 07:35 Bedside Glucose 266 H 182 166 White Blood Count 13.1 H Red Blood Count 4.60 L Hemoglobin 13.4 L Hematocrit 41.0 L Mean Corpuscular Volume 89.1 Mean Corpuscular Hemoglobin 29.1 Mean Corpuscular Hemoglobin Concent 32.7 Red Cell Distribution Width 12.6 Platelet Count 147 Mean Platelet Volume 11.1 H Neutrophils % 68.2 Lymphocytes % 15.9 Monocytes % 12.0 H Eosinophils % 3.1 Basophils % 0.3 Nucleated Red Blood Cells % 0.0 Neutrophils # 8.9 H Lymphocytes # 2.1 Monocytes # 1.6 H Eosinophils # 0.4 Basophils # 0.0 Nucleated Red Blood Cells # 0.0 Sodium Level 135 Potassium Level 3.7 Chloride Level 103 Carbon Dioxide Level 26 Anion Gap 10 Blood Urea Nitrogen 21 H Creatinine 1.61 H Glucose Level 195 Calcium Level 8.7 Test 04/23/17 12:32 Bedside Glucose 176 Medications Medications Current Medications Allopurinol (Zyloprim) 100 mg DAILY PO Last administered on 04/23/17 08:21; Admin Dose 100 MG; Start 04/21/17 at 09:00 Clonidine (Catapres) 0.2 mg Q8 PO Last administered on 04/23/17 14:14; Admin Dose 0.2 MG; Start 04/20/17 at 14:00 Furosemide (Lasix) 10 mg DAILY PO Last administered on 04/23/17 08:21; Admin Dose 10 MG; Start 04/21/17 at 09:00 Hydralazine HCl (Apresoline) 100 mg Q8 PO Last administered on 04/23/17 14:13 ; Admin Dose 100 MG; Start 04/20/17 at 14:00 Acetaminophen/ Hydrocodone Bitart ([place] (5/325)) 1 tab PRN PO Last administered on 04/23/17 08:28; Admin Dose 1 TAB; Start 04/20/17 at 12:00 Insulin Glargine (Lantus) 24 unit QHS SC Last administered on 04/22/17 21:14; Admin Dose 24 UNIT; Start 04/20/17 at 21:00 Linagliptin (Tradjenta) 5 mg DAILY PO Last administered on 04/23/17 08:21; Admin Dose 5 MG; Start 04/21/17 at 09:00 Nitroglycerin (Nitroglycerin (Sl Tab) 0.4 Mg) 1 tab PRN SL ; Start 04/20/17 at 12:00 Colchicine (Colchicine) 0.6 mg DAILY PRN PO GOUT PAIN; Start 04/21/17 at 09:00 ; Stop 04/23/17 at 21:00 Pantoprazole (Protonix Tab) 40 mg DAILY PO Last administered on 04/23/17 08:21 ; Admin Dose 40 MG; Start 04/20/17 at 12:00 Ondansetron HCl (Zofran Inj) 4 mg Q6 PRN IV NAUSEA AND/OR VOMITING; Start 04/20 at 12:00 Docusate Sodium (Colace) 100 mg BID PO Last administered on 04/23/17 08:20; Admin Dose 100 MG; Start 04/20/17 at 21:00 Acetaminophen (Tylenol Tab) 650 mg Q6 PRN PO PAIN AND OR ELEVATED TEMP Last administered on 04/22/17 21:13; Admin Dose 650 MG; Start 04/20/17 at 12:00 Morphine Sulfate (morphine) 2 mg Q6H PRN IV PAIN LEVEL 6-10; Start 04/20/17 at 12:00 Hydralazine HCl (Apresoline) 20 mg Q6 PRN IV ELEVATED BLOOD PRESSURE; Start 07/25 at 12:30 Miscellaneous Information 1 ea NOTE XX ; Start 04/20/17 at 12:30 Glucose (Glutose) 15 gm Q15M PRN PO DECREASED GLUCOSE; Start 04/20/17 at 12:30 Glucose (Glutose) 22.5 gm Q15M PRN PO DECREASED GLUCOSE; Start 04/20/17 at 12: 30 Dextrose (D50w Syringe) 25 ml Q15M PRN IV DECREASED GLUCOSE; Start 04/20/17 at 12:30 Dextrose (D50w Syringe) 50 ml Q15M PRN IV DECREASED GLUCOSE; Start 04/20/17 at 12:30 Glucagon (Glucagen) 1 mg Q15M PRN IM DECREASED GLUCOSE; Start 04/20/17 at 12:30 Glucose (Glutose) 15 gm Q15M PRN BUCCAL DECREASED GLUCOSE; Start 04/20/17 at 12 :30 Diagnostic Test (Pha) (Accu-Chek) 1 ea 02 XX Last administered on 04/21/17 02: 00; Admin Dose 1 EA; Start 04/21/17 at 02:00 Atorvastatin Calcium (Lipitor) 40 mg QHS PO Last administered on 04/22/17 21: 09; Admin Dose 40 MG; Start 04/20/17 at 21:00 Enoxaparin Sodium (Lovenox) 40 mg DAILY SC Last administered on 04/23/17 08:24 ; Admin Dose 40 MG; Start 04/20/17 at 16:48 Isosorbide Mononitrate (Imdur) 30 mg DAILY PO Last administered on 04/23/17 08 :21; Admin Dose 30 MG; Start 04/21/17 at 09:00 Carvedilol 12.5 mg 12.5 mg BID PO ; Start 04/21/17 at 21:00 Ceftriaxone Sodium (Rocephin) 50 ml @ 100 mls/hr Q24H IVPB Last administered on 04/23/17 08:27; Admin Dose 100 MLS/HR; Start 04/22/17 at 09:00 Colchicine (Colchicine) 0.6 mg BID PO ; Start 04/23/17 at 21:00 Prednisone (Prednisone) 10 mg DAILY PO ; Start 04/24/17 at 09:00 Bupivacaine HCl/ Epinephrine Bitart ([place] 0.5%/ Epi (Sdv Tear Top)) 30 ml NOW INJ ; Start 04/23/17 at 12:30; Stop 04/23/17 at 23:00 TK AVILA MD Apr 23, 2017 15:09
--- NOTE | 2017-04-23 15:46 | CONS ---
Date/Time of Note Date/Time of Note DATE: 04/23/17 TIME: 15:44 Assessment/Plan Assessment/Plan Chief Complaint/Hosp Course 1. acute kidney injury due to prerenal azotemia 2. Chest pain 3. h/o CAD s/p CABG 4. Hypertension- not optimally controlled 5. hyperlipidemia 6. Diabetes melitus 7. 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 Plan: continue current Chest pain work up Cr bumped to 2.12 yesterday - stopped lisinopril on 04/21/17 - Today Cr improved to 1.6 continue hydrlazine, and Clonidine for bP control will use IV hydrlaszine prn IV abx ceftriaxone will follow up Problems: Consultation Date/Type/Reason Admit Date/Time Apr 20, 2017 at 10:12 Initial Consult Date 04/20/17 Type of Consultation: NEPHROLOGY Referring Provider: SURENDRA ROSE MD Exam/Review of Systems Vital Signs Vitals Vital Signs Date Time Temp Pulse Resp B/P Pulse Ox O2 Delivery O2 Flow Rate FiO2 04/23/17 15:28 97.8 62 20 151/67 97 04/20/17 20:14 Room Air 04/20/17 00:00 15.0 Exam Constitutional: alert Neck: non-tender, supple Respiratory: clear to auscultation, diminished breath sounds, normal air movement Cardiovascular: nl pulses, regular rate and rhythm Gastrointestinal: nl liver, spleen, non-tender, soft Musculoskeletal: nl extremities to inspection, nl gait and stance 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, nl mental status, nl speech, nl strength Results Result Diagram: 04/23/17 0634 04/23/17 0634 Results 24 hrs Laboratory Tests Test 04/22/17 17:27 04/22/17 20:41 04/23/17 06:34 04/23/17 07:35 Bedside Glucose 266 H 182 166 White Blood Count 13.1 H Red Blood Count 4.60 L Hemoglobin 13.4 L Hematocrit 41.0 L Mean Corpuscular Volume 89.1 Mean Corpuscular Hemoglobin 29.1 Mean Corpuscular Hemoglobin Concent 32.7 Red Cell Distribution Width 12.6 Platelet Count 147 Mean Platelet Volume 11.1 H Neutrophils % 68.2 Lymphocytes % 15.9 Monocytes % 12.0 H Eosinophils % 3.1 Basophils % 0.3 Nucleated Red Blood Cells % 0.0 Neutrophils # 8.9 H Lymphocytes # 2.1 Monocytes # 1.6 H Eosinophils # 0.4 Basophils # 0.0 Nucleated Red Blood Cells # 0.0 Sodium Level 135 Potassium Level 3.7 Chloride Level 103 Carbon Dioxide Level 26 Anion Gap 10 Blood Urea Nitrogen 21 H Creatinine 1.61 H Glucose Level 195 Calcium Level 8.7 Test 04/23/17 12:32 Bedside Glucose 176 Medications Medications Current Medications Allopurinol (Zyloprim) 100 mg DAILY PO Last administered on 04/23/17 08:21; Admin Dose 100 MG; Start 04/21/17 at 09:00 Clonidine (Catapres) 0.2 mg Q8 PO Last administered on 04/23/17 14:14; Admin Dose 0.2 MG; Start 04/20/17 at 14:00 Furosemide (Lasix) 10 mg DAILY PO Last administered on 04/23/17 08:21; Admin Dose 10 MG; Start 04/21/17 at 09:00 Hydralazine HCl (Apresoline) 100 mg Q8 PO Last administered on 04/23/17 14:13 ; Admin Dose 100 MG; Start 04/20/17 at 14:00 Acetaminophen/ Hydrocodone Bitart ([place] (5/325)) 1 tab PRN PO Last administered on 04/23/17 08:28; Admin Dose 1 TAB; Start 04/20/17 at 12:00 Insulin Glargine (Lantus) 24 unit QHS SC Last administered on 04/22/17 21:14; Admin Dose 24 UNIT; Start 04/20/17 at 21:00 Linagliptin (Tradjenta) 5 mg DAILY PO Last administered on 04/23/17 08:21; Admin Dose 5 MG; Start 04/21/17 at 09:00 Nitroglycerin (Nitroglycerin (Sl Tab) 0.4 Mg) 1 tab PRN SL ; Start 04/20/17 at 12:00 Colchicine (Colchicine) 0.6 mg DAILY PRN PO GOUT PAIN; Start 04/21/17 at 09:00 ; Stop 04/23/17 at 21:00 Pantoprazole (Protonix Tab) 40 mg DAILY PO Last administered on 04/23/17 08:21 ; Admin Dose 40 MG; Start 04/20/17 at 12:00 Ondansetron HCl (Zofran Inj) 4 mg Q6 PRN IV NAUSEA AND/OR VOMITING; Start 04/20 at 12:00 Docusate Sodium (Colace) 100 mg BID PO Last administered on 04/23/17 08:20; Admin Dose 100 MG; Start 04/20/17 at 21:00 Acetaminophen (Tylenol Tab) 650 mg Q6 PRN PO PAIN AND OR ELEVATED TEMP Last administered on 04/22/17 21:13; Admin Dose 650 MG; Start 04/20/17 at 12:00 Morphine Sulfate (morphine) 2 mg Q6H PRN IV PAIN LEVEL 6-10; Start 04/20/17 at 12:00 Hydralazine HCl (Apresoline) 20 mg Q6 PRN IV ELEVATED BLOOD PRESSURE; Start 07/25 at 12:30 Miscellaneous Information 1 ea NOTE XX ; Start 04/20/17 at 12:30 Glucose (Glutose) 15 gm Q15M PRN PO DECREASED GLUCOSE; Start 04/20/17 at 12:30 Glucose (Glutose) 22.5 gm Q15M PRN PO DECREASED GLUCOSE; Start 04/20/17 at 12: 30 Dextrose (D50w Syringe) 25 ml Q15M PRN IV DECREASED GLUCOSE; Start 04/20/17 at 12:30 Dextrose (D50w Syringe) 50 ml Q15M PRN IV DECREASED GLUCOSE; Start 04/20/17 at 12:30 Glucagon (Glucagen) 1 mg Q15M PRN IM DECREASED GLUCOSE; Start 04/20/17 at 12:30 Glucose (Glutose) 15 gm Q15M PRN BUCCAL DECREASED GLUCOSE; Start 04/20/17 at 12 :30 Diagnostic Test (Pha) (Accu-Chek) 1 ea 02 XX Last administered on 04/21/17 02: 00; Admin Dose 1 EA; Start 04/21/17 at 02:00 Atorvastatin Calcium (Lipitor) 40 mg QHS PO Last administered on 04/22/17 21: 09; Admin Dose 40 MG; Start 04/20/17 at 21:00 Enoxaparin Sodium (Lovenox) 40 mg DAILY SC Last administered on 04/23/17 08:24 ; Admin Dose 40 MG; Start 04/20/17 at 16:48 Isosorbide Mononitrate (Imdur) 30 mg DAILY PO Last administered on 04/23/17 08 :21; Admin Dose 30 MG; Start 04/21/17 at 09:00 Carvedilol 12.5 mg 12.5 mg BID PO ; Start 04/21/17 at 21:00 Ceftriaxone Sodium (Rocephin) 50 ml @ 100 mls/hr Q24H IVPB Last administered on 04/23/17 08:27; Admin Dose 100 MLS/HR; Start 04/22/17 at 09:00 Colchicine (Colchicine) 0.6 mg BID PO ; Start 04/23/17 at 21:00 Prednisone (Prednisone) 10 mg DAILY PO ; Start 04/24/17 at 09:00 Bupivacaine HCl/ Epinephrine Bitart ([place] 0.5%/ Epi (Sdv Tear Top)) 30 ml NOW INJ ; Start 04/23/17 at 12:30; Stop 04/23/17 at 23:00 LORENZA GIBSON MD Apr 23, 2017 15:46
--- NOTE | 2017-04-23 20:49 | CONS ---
Date/Time of Note Date/Time of Note DATE: 04/23/17 TIME: 20:48 Consultation Date/Type/Reason Admit Date/Time Apr 20, 2017 at 10:12 Initial Consult Date 04/20/17 Type of Consultation: NEPHROLOGY Referring Provider: SURENDRA ROSE MD Exam/Review of Systems Vital Signs Vitals Vital Signs Date Time Temp Pulse Resp B/P Pulse Ox O2 Delivery O2 Flow Rate FiO2 04/23/17 20:31 78 04/23/17 19:24 98.5 18 148/72 98 04/20/17 20:14 Room Air 04/20/17 00:00 15.0 Results Result Diagram: 04/23/17 0634 04/23/17 0634 Results 24 hrs Laboratory Tests Test 04/23/17 06:34 04/23/17 07:35 04/23/17 12:32 04/23/17 17:17 White Blood Count 13.1 H Red Blood Count 4.60 L Hemoglobin 13.4 L Hematocrit 41.0 L Mean Corpuscular Volume 89.1 Mean Corpuscular Hemoglobin 29.1 Mean Corpuscular Hemoglobin Concent 32.7 Red Cell Distribution Width 12.6 Platelet Count 147 Mean Platelet Volume 11.1 H Neutrophils % 68.2 Lymphocytes % 15.9 Monocytes % 12.0 H Eosinophils % 3.1 Basophils % 0.3 Nucleated Red Blood Cells % 0.0 Neutrophils # 8.9 H Lymphocytes # 2.1 Monocytes # 1.6 H Eosinophils # 0.4 Basophils # 0.0 Nucleated Red Blood Cells # 0.0 Sodium Level 135 Potassium Level 3.7 Chloride Level 103 Carbon Dioxide Level 26 Anion Gap 10 Blood Urea Nitrogen 21 H Creatinine 1.61 H Glucose Level 195 Calcium Level 8.7 Bedside Glucose 166 176 120 Medications Medications Current Medications Allopurinol (Zyloprim) 100 mg DAILY PO Last administered on 04/23/17 08:21; Admin Dose 100 MG; Start 04/21/17 at 09:00 Clonidine (Catapres) 0.2 mg Q8 PO Last administered on 04/23/17 14:14; Admin Dose 0.2 MG; Start 04/20/17 at 14:00 Furosemide (Lasix) 10 mg DAILY PO Last administered on 04/23/17 08:21; Admin Dose 10 MG; Start 04/21/17 at 09:00 Hydralazine HCl (Apresoline) 100 mg Q8 PO Last administered on 04/23/17 14:13 ; Admin Dose 100 MG; Start 04/20/17 at 14:00 Acetaminophen/ Hydrocodone Bitart ([place] (5/325)) 1 tab PRN PO Last administered on 04/23/17 18:48; Admin Dose 1 TAB; Start 04/20/17 at 12:00 Insulin Glargine (Lantus) 24 unit QHS SC Last administered on 04/22/17 21:14; Admin Dose 24 UNIT; Start 04/20/17 at 21:00 Linagliptin (Tradjenta) 5 mg DAILY PO Last administered on 04/23/17 08:21; Admin Dose 5 MG; Start 04/21/17 at 09:00 Nitroglycerin (Nitroglycerin (Sl Tab) 0.4 Mg) 1 tab PRN SL ; Start 04/20/17 at 12:00 Colchicine (Colchicine) 0.6 mg DAILY PRN PO GOUT PAIN; Start 04/21/17 at 09:00 ; Stop 04/23/17 at 21:00 Pantoprazole (Protonix Tab) 40 mg DAILY PO Last administered on 04/23/17 08:21 ; Admin Dose 40 MG; Start 04/20/17 at 12:00 Ondansetron HCl (Zofran Inj) 4 mg Q6 PRN IV NAUSEA AND/OR VOMITING; Start 04/20 at 12:00 Docusate Sodium (Colace) 100 mg BID PO Last administered on 04/23/17 08:20; Admin Dose 100 MG; Start 04/20/17 at 21:00 Acetaminophen (Tylenol Tab) 650 mg Q6 PRN PO PAIN AND OR ELEVATED TEMP Last administered on 04/22/17 21:13; Admin Dose 650 MG; Start 04/20/17 at 12:00 Morphine Sulfate (morphine) 2 mg Q6H PRN IV PAIN LEVEL 6-10; Start 04/20/17 at 12:00 Hydralazine HCl (Apresoline) 20 mg Q6 PRN IV ELEVATED BLOOD PRESSURE; Start 07/25 at 12:30 Miscellaneous Information 1 ea NOTE XX ; Start 04/20/17 at 12:30 Glucose (Glutose) 15 gm Q15M PRN PO DECREASED GLUCOSE; Start 04/20/17 at 12:30 Glucose (Glutose) 22.5 gm Q15M PRN PO DECREASED GLUCOSE; Start 04/20/17 at 12: 30 Dextrose (D50w Syringe) 25 ml Q15M PRN IV DECREASED GLUCOSE; Start 04/20/17 at 12:30 Dextrose (D50w Syringe) 50 ml Q15M PRN IV DECREASED GLUCOSE; Start 04/20/17 at 12:30 Glucagon (Glucagen) 1 mg Q15M PRN IM DECREASED GLUCOSE; Start 04/20/17 at 12:30 Glucose (Glutose) 15 gm Q15M PRN BUCCAL DECREASED GLUCOSE; Start 04/20/17 at 12 :30 Diagnostic Test (Pha) (Accu-Chek) 1 ea 02 XX Last administered on 04/21/17 02: 00; Admin Dose 1 EA; Start 04/21/17 at 02:00 Atorvastatin Calcium (Lipitor) 40 mg QHS PO Last administered on 04/22/17 21: 09; Admin Dose 40 MG; Start 04/20/17 at 21:00 Enoxaparin Sodium (Lovenox) 40 mg DAILY SC Last administered on 04/23/17 08:24 ; Admin Dose 40 MG; Start 04/20/17 at 16:48 Isosorbide Mononitrate (Imdur) 30 mg DAILY PO Last administered on 04/23/17 08 :21; Admin Dose 30 MG; Start 04/21/17 at 09:00 Carvedilol 12.5 mg 12.5 mg BID PO ; Start 04/21/17 at 21:00 Ceftriaxone Sodium (Rocephin) 50 ml @ 100 mls/hr Q24H IVPB Last administered on 04/23/17 08:27; Admin Dose 100 MLS/HR; Start 04/22/17 at 09:00 Colchicine (Colchicine) 0.6 mg BID PO ; Start 04/23/17 at 21:00 Prednisone (Prednisone) 10 mg DAILY PO ; Start 04/24/17 at 09:00 Bupivacaine HCl/ Epinephrine Bitart (Marcaine 0.5%/ Epi (Sdv Tear Top)) 30 ml NOW INJ ; Start 04/23/17 at 12:30; Stop 04/23/17 at 23:00 GRACY PABLO MD Apr 23, 2017 20:49
[2017-04-23] MEDS: ATORVASTATIN 40 MG TAB PO SCH (21:05)
[2017-04-23] MEDS: COLCHICINE 0.6 MG TAB PO SCH (21:05)
[2017-04-23] MEDS: INSULIN GLARGINE [LANtus] 3 ML PEN SC SCH (21:11)
[2017-04-24] VITALS (12 sets, daily range): BP systolic 105–179; BP diastolic 58–80; PULSE 40–69; RESP 18–19
[2017-04-24] MEDS: hydrALAzine 20 MG INJ IV PRN (00:12)
[2017-04-24] MEDS: ACCU-CHEK XX SCH (02:00)
--- NOTE | 2017-04-24 05:47 | CONS ---
DATE OF ADMISSION: 04/20/2017 DATE OF CONSULTATION: 04/23/2017 TYPE OF CONSULTATION: Orthopedic Surgery HISTORY OF PRESENT ILLNESS: The patient is a 71-year-old may who came to the Emergency Room on the 20 April 2017 complaining of chest pain. Following initial evaluation, he was admitted for further evaluation and management. He states he has had a coronary artery disease and had 4-vessel CABG. He is also known to have hyperlipidemia, diabetes mellitus, and hypertension. He was having painful swelling involving his left knee and Orthopedic Surgery was consulted. On inquiring, he claims that he was diagnosed as having gouty arthritis since 2011 and has been treated for his gouty arthritis involving his left knee and left big toe and was treated with a steroid injection. PHYSICAL EXAMINATION: My examination revealed a 71-year-old male who is not in any acute distress. There was an obvious effusion involving the left knee with obvious tenderness. There were no signs of acute pyogenic process such as increased warmth or redness. There was a mild tenderness around the left big toe. RADIOLOGY: X-rays of the left knee revealed a presence of mild effusion along with mild degenerative osteoarthritis. DIAGNOSTIC IMPRESSION: Painful effusion of the left knee, most probably the gouty arthritis. Rule out symptomatic exacerbation of the pre-existing degenerative osteoarthritis. RECOMMENDATIONS: Treatment recommendation will be a trial of intra-articular injection of the left knee with steroid. This was done immediately following my initial evaluation. Further ortho followup can be done as an outpatient on a p.r.n. basis. Dictated By: In Kathya Morales MD /tiffanie/kerry /Document#: [id number]
[2017-04-24 07:14] LABS: BASOPHILS % 0.2 % (0.0-2.0); HEMATOCRIT 44.3 % (42.0-52.0); HEMOGLOBIN 14.4 g/dl (14.0-18.0); LYMPHOCYTES # 1.6 10^3/ul (0.8-2.9); LYMPHOCYTES % 15.5 % (15.0-51.0); MEAN CORPUSCULAR HEMOGLOBIN 28.6 pg (29.0-33.0); MEAN CORPUSCULAR HGB CONC 32.5 g/dl (32.0-37.0); MEAN CORPUSCULAR VOLUME 88.1 fl (82.0-101.0); MEAN PLATELET VOLUME 11.4 fl (7.4-10.4); MONOCYTE # 0.6 10^3/ul (0.3-0.9); MONOCYTES % 5.6 % (0.0-11.0); NEUTROPHIL # 7.9 10^3/ul (1.6-7.5); NEUTROPHILS % 78.1 % (39.0-77.0); PLATELET COUNT 173 10^3/UL (140-415); RED BLOOD COUNT 5.03 10^6/ul (4.70-6.10); RED CELL DISTRIBUTION WIDTH 12.4 % (11.5-14.5); WHITE BLOOD COUNT 10.1 10^3/ul (4.8-10.8)
[2017-04-24 08:15] LABS: CALCIUM 9.2 mg/dl (8.4-10.2); CREATININE 1.52 mg/dl (0.61-1.24); POTASSIUM 4.5 mmol/L (3.5-5.1)
[2017-04-24] MEDS: INSULIN ASPART [NOVOLOG] 3 ML PEN SC SCH ×7 (08:27→20:52)
[2017-04-24] MEDS: predniSONE 10 MG TAB PO SCH (08:31)
[2017-04-24] MEDS: PANTOPRAZOLE (EC) 40 MG TAB PO SCH (08:31)
[2017-04-24] MEDS: COLCHICINE 0.6 MG TAB PO SCH ×2 (08:31→12:26)
[2017-04-24] MEDS: DOCUSATE SODIUM 100 MG CAP PO SCH ×2 (08:31→20:38)
[2017-04-24] MEDS: LINAGLIPTIN 5 MG TABLET PO SCH (08:31)
[2017-04-24] MEDS: ISOSORBIDE MONONITRATE(SR)30 MG TAB PO SCH (08:32)
[2017-04-24] MEDS: FUROSEMIDE 20 MG TAB PO SCH (08:33)
[2017-04-24] MEDS: ALLOPURINOL 100 MG TAB PO SCH (08:33)
[2017-04-24] MEDS: ENOXAPARIN 40 MG/0.4 ML SYG SC SCH (08:39)
[2017-04-24] MEDS: CEFTRIAXONE 1 GM/50 ML (PMX) 50 ML IVPB SCH (08:51)
--- NOTE | 2017-04-24 12:05 | CONS ---
DATE OF ADMISSION: 04/20/2017 DATE OF CONSULTATION: 04/24/2017 TYPE OF CONSULTATION: Rheumatology consultation. CONSULTING PHYSICIAN: Dr. Harpreet Vo. REQUESTING PHYSICIAN: Dr. Infante.. REASON FOR CONSULTATION: History of gout and left knee pain. HISTORY OF PRESENT ILLNESS: Patient is a 71-year-old, Israeli male with a history of hypertension, diabetes, high cholesterol, and coronary artery disease, who was admitted on April 20, when he came home with chest pain. He called an ambulance and was given 2 sprays of nitro and aspirin in the field and he was admitted and brought to the hospital here. He was found to have an elevated BNP. Renal was consulted. He had a cardiac workup and was negative for an acute WI. In that time he also started complaining of left knee pain and swelling and warmth. He did have one episode of a fever on admission and since then he has been afebrile. Yesterday, he was seen by Dr. Wilbert Morales, Orthopedics, who evaluated his knee and gave him a cortisone injection and now his knee pain has almost completely resolved. He does admit to history of gout since he had his coronary artery bypass graft surgery in 2012. He says the gout only affects his lower extremities, his knees and his feet and last attack prior to this one was a few months ago. Currently no other joints are involved. No more chest pain. No shortness of breath. No nausea or vomiting. No rash. PAST MEDICAL HISTORY: As stated above. Coronary artery disease, diabetes, high cholesterol, hypertension. PAST SURGICAL HISTORY: CABG. SIGNIFICANT FAMILY HISTORY: None. SOCIAL HISTORY: No alcohol, never smoked. No drug use. MEDICATION: 1. Prednisone 10 mg p.o. q.day. 2. Clonidine patch. 3. Colchicine 0.6 mg b.i.d. 4. Ceftriaxone. 5. Carvedilol. 6. Allopurinol 100 mg p.o. q.day. 7. Lasix. 8. Tradjenta. 9. Imdur. 10. Colace. 11. Atorvastatin. 12. Lovenox. PHYSICAL EXAMINATION: VITAL SIGNS: Currently, temperature 98.3, pulse 59, blood pressure 117/58, respirations 18, sating 96 percent on room air. GENERAL: Alert, oriented, pleasant male in no acute distress. HEENT: NC/AT, extraocular movements intact. Oropharynx is clear. NECK: Supple. HEART: S1, S2. Regular rate and rhythm. LUNGS: Clear to auscultation. Normal air movement. ABDOMEN: Soft, nontender, nondistended. MUSCULOSKELETAL: The left knee with slight tenderness to palpation. Still has a slight effusion, no erythema, no warmth. Range of motion is mostly intact. No other joint synovitis or effusion or warmth. NEUROLOGICAL: Cranial nerves 2-12 grossly intact. Normal mental status. Normal speech. Normal strength. SKIN: No rashes. LABORATORY: White count 10.1, hemoglobin 14.4, hematocrit 44.3, platelet count is 173. Sodium 139, potassium 4.5, chloride 106, bicarb 24, BUN 24, creatinine 1.52. Glucose is 289, calcium 9.2. ASSESSMENT AND PLAN: This is a 71-year-old male, who was admitted for chest pain with history of gout, found to have a left knee effusion, likely gouty arthritis, that has already been treated with cortisone injection and the pain has resolved. As for his gout, I would continue the allopurinol 100 mg p.o. q.day. I would continue the colchicine 0.6 mg. Since his pain is improving, we can probably decrease this back down to once a day and I would go ahead and stop the prednisone 10 mg p.o. q.day at this point, since he got a local steroid injection and he is feeling much better. So, he can stop the prednisone and decrease the colchicine to 0.6 just once a day. He will need to be followed for better gout control in the future. He will probably need his allopurinol raised. This needs to be done once his left knee pain has completely, completely resolved and at least a week out from his gout flare. He should follow up with her customer liaison, since he is a complicated patient with many medical problems. I would like to thank Dr. Infante for having me participate in this patient's care. Please do not hesitate to call with any further questions or concerns. Dictated By: Harpreet Vo MD /tiffanie/josue /Document#: [id number]
--- NOTE | 2017-04-24 12:22 | CONS ---
Date/Time of Note Date/Time of Note DATE: 04/23/17 TIME: 7:30 pm Assessment/Plan Assessment/Plan Chief Complaint/Hosp Course 1. Febrile illness; query related to gout 2. improved wbc on empiric ctx 2. hx of cad and cabg r: cont. ctx for now f/u cxs procalcitonin anticipate short course abx only Problems: Consultation Date/Type/Reason Admit Date/Time Apr 20, 2017 at 10:12 Date of Consultation: Apr 24, 2017 Reason for Consultation abx recs Referring Provider: SURENDRA ROSE MD Hx of Present Illness This is a 71-year-old male with pmh of cad, s/p cabg 2011, we saw him during that time, gout, arthritis, admitted with sob and dysuria. He is a moderate historian. He was noted to have a knee effusion and has been diagnosed/treated for gouty arthritis. He has been on empiric ctx. WBC has normalized. He is afebrile. CXs negative x 1 day. Constitutional: improved, no complaints Respiratory: no complaints Cardiovascular: no complaints Gastrointestinal: no complaints Genitourinary: no complaints Musculoskeletal: no complaints Skin: bruising Neurologic: no complaints Psychological: no complaints Past Medical History Medical History: coronary artery disease, diabetes, high cholesterol, hypertension Past Surgical History Past Surgical Hx: other (CABG) Social History Alcohol Use: none Smoking Status: Former smoker Drug Use: none Exam/Review of Systems Vital Signs Vitals Vital Signs Date Time Temp Pulse Resp B/P Pulse Ox O2 Delivery O2 Flow Rate FiO2 04/24/17 12:01 49 04/24/17 11:32 97.6 18 135/67 98 04/20/17 20:14 Room Air Exam Constitutional: alert, oriented, well developed Psych: nl mood/affect, no complaints Head: atraumatic, normocephalic Eyes: EOMI, PERRL, nl conjunctiva, nl lids, nl sclera ENMT: nl external ears & nose, nl lips & teeth, nl nasal mucosa & septum Neck: non-tender, supple Respiratory: clear to auscultation, normal air movement Cardiovascular: nl pulses, regular rate and rhythm Gastrointestinal: nl liver, spleen, non-tender, soft Musculoskeletal: nl extremities to inspection, nl gait and stance Extremities: normal pulses 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, nl mental status, nl speech, nl strength Results Result Diagram: 04/24/17 0629 04/24/17 0629 Results 24 hrs Laboratory Tests Test 04/23/17 12:32 04/23/17 17:17 04/23/17 20:58 04/24/17 02:32 Bedside Glucose 176 120 269 H 180 Test 04/24/17 06:29 04/24/17 08:25 White Blood Count 10.1 # Red Blood Count 5.03 Hemoglobin 14.4 Hematocrit 44.3 Mean Corpuscular Volume 88.1 Mean Corpuscular Hemoglobin 28.6 L Mean Corpuscular Hemoglobin Concent 32.5 Red Cell Distribution Width 12.4 Platelet Count 173 Mean Platelet Volume 11.4 H Neutrophils % 78.1 H Lymphocytes % 15.5 Monocytes % 5.6 Eosinophils % 0.0 Basophils % 0.2 Nucleated Red Blood Cells % 0.0 Neutrophils # 7.9 H Lymphocytes # 1.6 Monocytes # 0.6 Eosinophils # 0.0 Basophils # 0.0 Nucleated Red Blood Cells # 0.0 Sodium Level 139 Potassium Level 4.5 Chloride Level 106 Carbon Dioxide Level 24 Anion Gap 14 Blood Urea Nitrogen 24 H Creatinine 1.52 H Glucose Level 213 Calcium Level 9.2 Bedside Glucose 289 H Medications Medications Current Medications Allopurinol (Zyloprim) 100 mg DAILY PO Last administered on 04/24/17 08:33; Admin Dose 100 MG; Start 04/21/17 at 09:00 Clonidine (Catapres) 0.2 mg Q8 PO Last administered on 04/24/17 05:29; Admin Dose 0.2 MG; Start 04/20/17 at 14:00 Furosemide (Lasix) 10 mg DAILY PO Last administered on 04/24/17 08:33; Admin Dose 10 MG; Start 04/21/17 at 09:00 Hydralazine HCl (Apresoline) 100 mg Q8 PO Last administered on 04/24/17 05:30 ; Admin Dose 100 MG; Start 04/20/17 at 14:00 Acetaminophen/ Hydrocodone Bitart ([place] (5/325)) 1 tab PRN PO Last administered on 04/23/17 18:48; Admin Dose 1 TAB; Start 04/20/17 at 12:00 Insulin Glargine (Lantus) 24 unit QHS SC Last administered on 04/23/17 21:11; Admin Dose 24 UNIT; Start 04/20/17 at 21:00 Linagliptin (Tradjenta) 5 mg DAILY PO Last administered on 04/24/17 08:31; Admin Dose 5 MG; Start 04/21/17 at 09:00 Nitroglycerin (Nitroglycerin (Sl Tab) 0.4 Mg) 1 tab PRN SL ; Start 04/20/17 at 12:00 Pantoprazole (Protonix Tab) 40 mg DAILY PO Last administered on 04/24/17 08:31 ; Admin Dose 40 MG; Start 04/20/17 at 12:00 Ondansetron HCl (Zofran Inj) 4 mg Q6 PRN IV NAUSEA AND/OR VOMITING; Start 04/20 at 12:00 Docusate Sodium (Colace) 100 mg BID PO Last administered on 04/24/17 08:31; Admin Dose 100 MG; Start 04/20/17 at 21:00 Acetaminophen (Tylenol Tab) 650 mg Q6 PRN PO PAIN AND OR ELEVATED TEMP Last administered on 04/22/17 21:13; Admin Dose 650 MG; Start 04/20/17 at 12:00 Morphine Sulfate (morphine) 2 mg Q6H PRN IV PAIN LEVEL 6-10; Start 04/20/17 at 12:00 Hydralazine HCl (Apresoline) 20 mg Q6 PRN IV ELEVATED BLOOD PRESSURE Last administered on 04/24/17 00:12; Admin Dose 20 MG; Start 04/20/17 at 12:30 Miscellaneous Information 1 ea NOTE XX ; Start 04/20/17 at 12:30 Glucose (Glutose) 15 gm Q15M PRN PO DECREASED GLUCOSE; Start 04/20/17 at 12:30 Glucose (Glutose) 22.5 gm Q15M PRN PO DECREASED GLUCOSE; Start 04/20/17 at 12: 30 Dextrose (D50w Syringe) 25 ml Q15M PRN IV DECREASED GLUCOSE; Start 04/20/17 at 12:30 Dextrose (D50w Syringe) 50 ml Q15M PRN IV DECREASED GLUCOSE; Start 04/20/17 at 12:30 Glucagon (Glucagen) 1 mg Q15M PRN IM DECREASED GLUCOSE; Start 04/20/17 at 12:30 Glucose (Glutose) 15 gm Q15M PRN BUCCAL DECREASED GLUCOSE; Start 04/20/17 at 12 :30 Diagnostic Test (Pha) (Accu-Chek) 1 ea 02 XX Last administered on 04/21/17 02: 00; Admin Dose 1 EA; Start 04/21/17 at 02:00 Atorvastatin Calcium (Lipitor) 40 mg QHS PO Last administered on 04/23/17 21: 05; Admin Dose 40 MG; Start 04/20/17 at 21:00 Enoxaparin Sodium (Lovenox) 40 mg DAILY SC Last administered on 04/24/17 08:39 ; Admin Dose 40 MG; Start 04/20/17 at 16:48 Isosorbide Mononitrate (Imdur) 30 mg DAILY PO Last administered on 04/24/17 08 :32; Admin Dose 30 MG; Start 04/21/17 at 09:00 Carvedilol 12.5 mg 12.5 mg BID PO Last administered on 04/24/17 08:34; Admin Dose 12.5 MG; Start 04/21/17 at 21:00 Ceftriaxone Sodium (Rocephin) 50 ml @ 100 mls/hr Q24H IVPB Last administered on 04/24/17 08:51; Admin Dose 100 MLS/HR; Start 04/22/17 at 09:00 Prednisone (Prednisone) 10 mg DAILY PO Last administered on 04/24/17 08:31; Admin Dose 10 MG; Start 04/24/17 at 09:00 Clonidine (Catapres) 0.1 mg Q6 PRN PO For Systolic BP >160 Last administered on 04/24/17 03:48; Admin Dose 0.1 MG; Start 04/24/17 at 00:30 GRACY PABLO MD Apr 24, 2017 12:22
--- NOTE | 2017-04-24 12:40 | PN ---
Date/Time of Note Date/Time of Note DATE: 04/24/17 TIME: 12:40 Assessment/Plan VTE Prophylaxis VTE Prophylaxis Intervention: other Lines/Catheters IV Catheter Type (from Nrs): [facility] [facility] Urinary Cath still in place: No Assessment/Plan Chief Complaint/Hosp Course -Left knee swelling/redness- possible septic joint - XRAY left knee - us left knee - ortho consult - rheumatology -Febrile Condition- afebrile at present - per ID consult- Dr Castle - Blood C/S - Urine- C/S, UA - cxr - Atrial flutter with some slow ventricular response at times of 40s on beta raffi.-now improved on lower dose of BB, HR 61 - Cardiology follows -Chest pain- none at present - cont on Tele - per cardiology consult- Dr Montaño - 1800cAL ada, Low Cholesterol, low Na S/P CABG X 4 Vessels HTN- improved HYPERLIPIDEMIA - cont Atorvastatin 40 mg po QHS - weight management - Dietary consult DM - Glycemic control - Hgb am - guide travel Consult - Dietary consult Edema- BLE- Neg for DVT Problems: Subjective 24 Hr Interval Summary Free Text/Dictation Patient complain of pain in leg, related to gout Exam/Review of Systems Vital Signs Vitals Vital Signs Date Time Temp Pulse Resp B/P Pulse Ox O2 Delivery O2 Flow Rate FiO2 04/24/17 12:01 49 04/24/17 11:32 97.6 18 135/67 98 04/20/17 20:14 Room Air Exam Constitutional: well developed Head: atraumatic, normocephalic Neck: supple Respiratory: clear to auscultation Cardiovascular: regular rate and rhythm Gastrointestinal: non-tender, soft Extremities: normal pulses Results Result Diagram: 04/24/17 0629 04/24/17 0629 Results 24 hrs Laboratory Tests Test 04/23/17 17:17 04/23/17 20:58 04/24/17 02:32 04/24/17 06:29 Bedside Glucose 120 269 H 180 White Blood Count 10.1 # Red Blood Count 5.03 Hemoglobin 14.4 Hematocrit 44.3 Mean Corpuscular Volume 88.1 Mean Corpuscular Hemoglobin 28.6 L Mean Corpuscular Hemoglobin Concent 32.5 Red Cell Distribution Width 12.4 Platelet Count 173 Mean Platelet Volume 11.4 H Neutrophils % 78.1 H Lymphocytes % 15.5 Monocytes % 5.6 Eosinophils % 0.0 Basophils % 0.2 Nucleated Red Blood Cells % 0.0 Neutrophils # 7.9 H Lymphocytes # 1.6 Monocytes # 0.6 Eosinophils # 0.0 Basophils # 0.0 Nucleated Red Blood Cells # 0.0 Sodium Level 139 Potassium Level 4.5 Chloride Level 106 Carbon Dioxide Level 24 Anion Gap 14 Blood Urea Nitrogen 24 H Creatinine 1.52 H Glucose Level 213 Calcium Level 9.2 Test 04/24/17 08:25 04/24/17 12:19 Bedside Glucose 289 H 288 H Medications Medications Current Medications Allopurinol (Zyloprim) 100 mg DAILY PO Last administered on 04/24/17 08:33; Admin Dose 100 MG; Start 04/21/17 at 09:00 Clonidine (Catapres) 0.2 mg Q8 PO Last administered on 04/24/17 12:25; Admin Dose 0.2 MG; Start 04/20/17 at 14:00 Furosemide (Lasix) 10 mg DAILY PO Last administered on 04/24/17 08:33; Admin Dose 10 MG; Start 04/21/17 at 09:00 Hydralazine HCl (Apresoline) 100 mg Q8 PO Last administered on 04/24/17 12:25 ; Admin Dose 100 MG; Start 04/20/17 at 14:00 Acetaminophen/ Hydrocodone Bitart ([place] (5/325)) 1 tab PRN PO Last administered on 04/23/17 18:48; Admin Dose 1 TAB; Start 04/20/17 at 12:00 Insulin Glargine (Lantus) 24 unit QHS SC Last administered on 04/23/17 21:11; Admin Dose 24 UNIT; Start 04/20/17 at 21:00 Linagliptin (Tradjenta) 5 mg DAILY PO Last administered on 04/24/17 08:31; Admin Dose 5 MG; Start 04/21/17 at 09:00 Nitroglycerin (Nitroglycerin (Sl Tab) 0.4 Mg) 1 tab PRN SL ; Start 04/20/17 at 12:00 Pantoprazole (Protonix Tab) 40 mg DAILY PO Last administered on 04/24/17 08:31 ; Admin Dose 40 MG; Start 04/20/17 at 12:00 Ondansetron HCl (Zofran Inj) 4 mg Q6 PRN IV NAUSEA AND/OR VOMITING; Start 04/20 at 12:00 Docusate Sodium (Colace) 100 mg BID PO Last administered on 04/24/17 08:31; Admin Dose 100 MG; Start 04/20/17 at 21:00 Acetaminophen (Tylenol Tab) 650 mg Q6 PRN PO PAIN AND OR ELEVATED TEMP Last administered on 04/22/17 21:13; Admin Dose 650 MG; Start 04/20/17 at 12:00 Morphine Sulfate (morphine) 2 mg Q6H PRN IV PAIN LEVEL 6-10; Start 04/20/17 at 12:00 Hydralazine HCl (Apresoline) 20 mg Q6 PRN IV ELEVATED BLOOD PRESSURE Last administered on 04/24/17 00:12; Admin Dose 20 MG; Start 04/20/17 at 12:30 Miscellaneous Information 1 ea NOTE XX ; Start 04/20/17 at 12:30 Glucose (Glutose) 15 gm Q15M PRN PO DECREASED GLUCOSE; Start 04/20/17 at 12:30 Glucose (Glutose) 22.5 gm Q15M PRN PO DECREASED GLUCOSE; Start 04/20/17 at 12: 30 Dextrose (D50w Syringe) 25 ml Q15M PRN IV DECREASED GLUCOSE; Start 04/20/17 at 12:30 Dextrose (D50w Syringe) 50 ml Q15M PRN IV DECREASED GLUCOSE; Start 04/20/17 at 12:30 Glucagon (Glucagen) 1 mg Q15M PRN IM DECREASED GLUCOSE; Start 04/20/17 at 12:30 Glucose (Glutose) 15 gm Q15M PRN BUCCAL DECREASED GLUCOSE; Start 04/20/17 at 12 :30 Diagnostic Test (Pha) (Accu-Chek) 1 ea 02 XX Last administered on 04/21/17 02: 00; Admin Dose 1 EA; Start 04/21/17 at 02:00 Atorvastatin Calcium (Lipitor) 40 mg QHS PO Last administered on 04/23/17 21: 05; Admin Dose 40 MG; Start 04/20/17 at 21:00 Enoxaparin Sodium (Lovenox) 40 mg DAILY SC Last administered on 04/24/17 08:39 ; Admin Dose 40 MG; Start 04/20/17 at 16:48 Isosorbide Mononitrate (Imdur) 30 mg DAILY PO Last administered on 04/24/17 08 :32; Admin Dose 30 MG; Start 04/21/17 at 09:00 Carvedilol 12.5 mg 12.5 mg BID PO Last administered on 04/24/17 08:34; Admin Dose 12.5 MG; Start 04/21/17 at 21:00 Ceftriaxone Sodium (Rocephin) 50 ml @ 100 mls/hr Q24H IVPB Last administered on 04/24/17 08:51; Admin Dose 100 MLS/HR; Start 04/22/17 at 09:00 Prednisone (Prednisone) 10 mg DAILY PO Last administered on 04/24/17 08:31; Admin Dose 10 MG; Start 04/24/17 at 09:00 Clonidine (Catapres) 0.1 mg Q6 PRN PO For Systolic BP >160 Last administered on 04/24/17 03:48; Admin Dose 0.1 MG; Start 04/24/17 at 00:30 RED TROTTER Apr 24, 2017 12:40
--- NOTE | 2017-04-24 14:17 | CONS ---
Date/Time of Note Date/Time of Note DATE: 04/24/17 TIME: 14:15 Assessment/Plan Assessment/Plan Additional Assessment/Plan 1. Chest pain. 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 2. Atrial flutter with some slow ventricular response at times down to the 40s on beta raffi.-now improved on lower dose of BB - better, no indication for pacer now. Rate controlled. 3. Abnormal electrocardiogram with nonspecific ST and T-wave abnormalities - A. FL noted 4. Coronary artery disease, status post coronary artery bypass graft surgery 2012- med rx asdvised. 5. Dyslipidemia. 6. Gout. Consultation Date/Type/Reason Admit Date/Time Apr 20, 2017 at 10:12 Initial Consult Date 04/20/17 Type of Consultation: NEPHROLOGY Referring Provider: SURENDRA ROSE MD 24 HR Interval Summary Free Text/Dictation NO acute events - BP in good range - No CP noted now. ROS: No fever, no chills, no nausea, no vomiting, no diarrhea/constipation No recent weight changes No chest pain, no PND, no orthopnea No dizziness, blurred vision No thirst, no heat or cold intolerance Exam/Review of Systems Vital Signs Vitals Vital Signs Date Time Temp Pulse Resp B/P Pulse Ox O2 Delivery O2 Flow Rate FiO2 04/24/17 12:01 49 04/24/17 11:32 97.6 18 135/67 98 04/20/17 20:14 Room Air Exam General: WN/WD/NAD, AOx 3 HEENT: Unicetric/atraumatic/EOMI (follows commands) NECK: JVD elevated, no thyromegaly Lymph: no lymphadenopathy HEART: Iregular with no S3, II/ systolic murmur at apex LUNGS: Coarse sounds ABD: soft, NT, ND, +BS : Intact Neuro: non focal SKIN: chronic changes EXT: trace edema Results Result Diagram: 04/24/17 0629 04/24/1729 Results 24 hrs Laboratory Tests Test 04/23/17 17:17 04/23/17 20:58 04/24/17 02:32 04/24/17 06:29 Bedside Glucose 120 269 H 180 White Blood Count 10.1 # Red Blood Count 5.03 Hemoglobin 14.4 Hematocrit 44.3 Mean Corpuscular Volume 88.1 Mean Corpuscular Hemoglobin 28.6 L Mean Corpuscular Hemoglobin Concent 32.5 Red Cell Distribution Width 12.4 Platelet Count 173 Mean Platelet Volume 11.4 H Neutrophils % 78.1 H Lymphocytes % 15.5 Monocytes % 5.6 Eosinophils % 0.0 Basophils % 0.2 Nucleated Red Blood Cells % 0.0 Neutrophils # 7.9 H Lymphocytes # 1.6 Monocytes # 0.6 Eosinophils # 0.0 Basophils # 0.0 Nucleated Red Blood Cells # 0.0 Sodium Level 139 Potassium Level 4.5 Chloride Level 106 Carbon Dioxide Level 24 Anion Gap 14 Blood Urea Nitrogen 24 H Creatinine 1.52 H Glucose Level 213 Calcium Level 9.2 Test 04/24/17 08:25 04/24/17 12:19 Bedside Glucose 289 H 288 H Medications Medications Current Medications Allopurinol (Zyloprim) 100 mg DAILY PO Last administered on 04/24/17 08:33; Admin Dose 100 MG; Start 04/21/17 at 09:00 Clonidine (Catapres) 0.2 mg Q8 PO Last administered on 04/24/17 12:25; Admin Dose 0.2 MG; Start 04/20/17 at 14:00 Furosemide (Lasix) 10 mg DAILY PO Last administered on 04/24/17 08:33; Admin Dose 10 MG; Start 04/21/17 at 09:00 Hydralazine HCl (Apresoline) 100 mg Q8 PO Last administered on 04/24/17 12:25 ; Admin Dose 100 MG; Start 04/20/17 at 14:00 Acetaminophen/ Hydrocodone Bitart ([place] (5/325)) 1 tab PRN PO Last administered on 04/23/17 18:48; Admin Dose 1 TAB; Start 04/20/17 at 12:00 Insulin Glargine (Lantus) 24 unit QHS SC Last administered on 04/23/17 21:11; Admin Dose 24 UNIT; Start 04/20/17 at 21:00 Linagliptin (Tradjenta) 5 mg DAILY PO Last administered on 04/24/17 08:31; Admin Dose 5 MG; Start 04/21/17 at 09:00 Nitroglycerin (Nitroglycerin (Sl Tab) 0.4 Mg) 1 tab PRN SL ; Start 04/20/17 at 12:00 Pantoprazole (Protonix Tab) 40 mg DAILY PO Last administered on 04/24/17 08:31 ; Admin Dose 40 MG; Start 04/20/17 at 12:00 Ondansetron HCl (Zofran Inj) 4 mg Q6 PRN IV NAUSEA AND/OR VOMITING; Start 04/20 at 12:00 Docusate Sodium (Colace) 100 mg BID PO Last administered on 04/24/17 08:31; Admin Dose 100 MG; Start 04/20/17 at 21:00 Acetaminophen (Tylenol Tab) 650 mg Q6 PRN PO PAIN AND OR ELEVATED TEMP Last administered on 04/22/17 21:13; Admin Dose 650 MG; Start 04/20/17 at 12:00 Morphine Sulfate (morphine) 2 mg Q6H PRN IV PAIN LEVEL 6-10; Start 04/20/17 at 12:00 Hydralazine HCl (Apresoline) 20 mg Q6 PRN IV ELEVATED BLOOD PRESSURE Last administered on 04/24/17 00:12; Admin Dose 20 MG; Start 04/20/17 at 12:30 Miscellaneous Information 1 ea NOTE XX ; Start 04/20/17 at 12:30 Glucose (Glutose) 15 gm Q15M PRN PO DECREASED GLUCOSE; Start 04/20/17 at 12:30 Glucose (Glutose) 22.5 gm Q15M PRN PO DECREASED GLUCOSE; Start 04/20/17 at 12: 30 Dextrose (D50w Syringe) 25 ml Q15M PRN IV DECREASED GLUCOSE; Start 04/20/17 at 12:30 Dextrose (D50w Syringe) 50 ml Q15M PRN IV DECREASED GLUCOSE; Start 04/20/17 at 12:30 Glucagon (Glucagen) 1 mg Q15M PRN IM DECREASED GLUCOSE; Start 04/20/17 at 12:30 Glucose (Glutose) 15 gm Q15M PRN BUCCAL DECREASED GLUCOSE; Start 04/20/17 at 12 :30 Diagnostic Test (Pha) (Accu-Chek) 1 ea 02 XX Last administered on 04/21/17 02: 00; Admin Dose 1 EA; Start 04/21/17 at 02:00 Atorvastatin Calcium (Lipitor) 40 mg QHS PO Last administered on 04/23/17 21: 05; Admin Dose 40 MG; Start 04/20/17 at 21:00 Enoxaparin Sodium (Lovenox) 40 mg DAILY SC Last administered on 04/24/17 08:39 ; Admin Dose 40 MG; Start 04/20/17 at 16:48 Isosorbide Mononitrate (Imdur) 30 mg DAILY PO Last administered on 04/24/17 08 :32; Admin Dose 30 MG; Start 04/21/17 at 09:00 Carvedilol 12.5 mg 12.5 mg BID PO Last administered on 04/24/17 08:34; Admin Dose 12.5 MG; Start 04/21/17 at 21:00 Ceftriaxone Sodium (Rocephin) 50 ml @ 100 mls/hr Q24H IVPB Last administered on 04/24/17 08:51; Admin Dose 100 MLS/HR; Start 04/22/17 at 09:00 Prednisone (Prednisone) 10 mg DAILY PO Last administered on 04/24/17 08:31; Admin Dose 10 MG; Start 04/24/17 at 09:00 Clonidine (Catapres) 0.1 mg Q6 PRN PO For Systolic BP >160 Last administered on 04/24/17 03:48; Admin Dose 0.1 MG; Start 04/24/17 at 00:30 TK AVILA MD Apr 24, 2017 14:17
--- NOTE | 2017-04-24 18:26 | CONS ---
Date/Time of Note Date/Time of Note DATE: 04/24/17 TIME: 18:23 Assessment/Plan Assessment/Plan Additional Assessment/Plan 1. acute kidney injury due to prerenal azotemia 2. Chest pain 3. h/o CAD s/p CABG 4. Hypertension- not optimally controlled 5. hyperlipidemia 6. Diabetes melitus 7. 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 Left knee pain and swelling Plan: continue current Chest pain work up, s/p Orthopedic evlatuiona for left knee pain and swelling - stopped lisinopril on 04/21/17 - Today Cr improved to 1.52 continue hydrlazine, and Clonidine for bP control will use IV hydrlaszine prn IV abx ceftriaxone will follow up Consultation Date/Type/Reason Admit Date/Time Apr 20, 2017 at 10:12 Initial Consult Date 04/20/17 Type of Consultation: NEPHROLOGY Referring Provider: SURENDRA ROSE MD 24 HR Interval Summary Free Text/Dictation Cr 1.52, left knee pain, Exam/Review of Systems Vital Signs Vitals Vital Signs Date Time Temp Pulse Resp B/P Pulse Ox O2 Delivery O2 Flow Rate FiO2 04/24/17 16:30 56 04/24/17 15:33 97.4 19 105/58 100 04/20/17 20:14 Room Air Exam Constitutional: alert Neck: non-tender, supple Respiratory: clear to auscultation, diminished breath sounds, normal air movement Cardiovascular: nl pulses, regular rate and rhythm Gastrointestinal: nl liver, spleen, non-tender, soft Musculoskeletal: nl extremities to inspection, nl gait and stance Neurological: [employer] II-XII intact, nl mental status, nl speech, nl strength Results Result Diagram: 04/24/17 0629 04/24/17 0629 Results 24 hrs Laboratory Tests Test 04/23/17 20:58 04/24/17 02:32 04/24/17 06:29 04/24/17 08:25 Bedside Glucose 269 H 180 289 H White Blood Count 10.1 # Red Blood Count 5.03 Hemoglobin 14.4 Hematocrit 44.3 Mean Corpuscular Volume 88.1 Mean Corpuscular Hemoglobin 28.6 L Mean Corpuscular Hemoglobin Concent 32.5 Red Cell Distribution Width 12.4 Platelet Count 173 Mean Platelet Volume 11.4 H Neutrophils % 78.1 H Lymphocytes % 15.5 Monocytes % 5.6 Eosinophils % 0.0 Basophils % 0.2 Nucleated Red Blood Cells % 0.0 Neutrophils # 7.9 H Lymphocytes # 1.6 Monocytes # 0.6 Eosinophils # 0.0 Basophils # 0.0 Nucleated Red Blood Cells # 0.0 Sodium Level 139 Potassium Level 4.5 Chloride Level 106 Carbon Dioxide Level 24 Anion Gap 14 Blood Urea Nitrogen 24 H Creatinine 1.52 H Glucose Level 213 Calcium Level 9.2 Test 04/24/17 12:19 04/24/17 17:11 Bedside Glucose 288 H 164 Medications Medications Current Medications Allopurinol (Zyloprim) 100 mg DAILY PO Last administered on 04/24/17 08:33; Admin Dose 100 MG; Start 04/21/17 at 09:00 Clonidine (Catapres) 0.2 mg Q8 PO Last administered on 04/24/17 12:25; Admin Dose 0.2 MG; Start 04/20/17 at 14:00 Furosemide (Lasix) 10 mg DAILY PO Last administered on 04/24/17 08:33; Admin Dose 10 MG; Start 04/21/17 at 09:00 Hydralazine HCl (Apresoline) 100 mg Q8 PO Last administered on 04/24/17 12:25 ; Admin Dose 100 MG; Start 04/20/17 at 14:00 Acetaminophen/ Hydrocodone Bitart ([place] (5/325)) 1 tab PRN PO Last administered on 04/23/17 18:48; Admin Dose 1 TAB; Start 04/20/17 at 12:00 Insulin Glargine (Lantus) 24 unit QHS SC Last administered on 04/23/17 21:11; Admin Dose 24 UNIT; Start 04/20/17 at 21:00 Linagliptin (Tradjenta) 5 mg DAILY PO Last administered on 04/24/17 08:31; Admin Dose 5 MG; Start 04/21/17 at 09:00 Nitroglycerin (Nitroglycerin (Sl Tab) 0.4 Mg) 1 tab PRN SL ; Start 04/20/17 at 12:00 Pantoprazole (Protonix Tab) 40 mg DAILY PO Last administered on 04/24/17 08:31 ; Admin Dose 40 MG; Start 04/20/17 at 12:00 Ondansetron HCl (Zofran Inj) 4 mg Q6 PRN IV NAUSEA AND/OR VOMITING; Start 04/20 at 12:00 Docusate Sodium (Colace) 100 mg BID PO Last administered on 04/24/17 08:31; Admin Dose 100 MG; Start 04/20/17 at 21:00 Acetaminophen (Tylenol Tab) 650 mg Q6 PRN PO PAIN AND OR ELEVATED TEMP Last administered on 04/22/17 21:13; Admin Dose 650 MG; Start 04/20/17 at 12:00 Morphine Sulfate (morphine) 2 mg Q6H PRN IV PAIN LEVEL 6-10; Start 04/20/17 at 12:00 Hydralazine HCl (Apresoline) 20 mg Q6 PRN IV ELEVATED BLOOD PRESSURE Last administered on 04/24/17 00:12; Admin Dose 20 MG; Start 04/20/17 at 12:30 Miscellaneous Information 1 ea NOTE XX ; Start 04/20/17 at 12:30 Glucose (Glutose) 15 gm Q15M PRN PO DECREASED GLUCOSE; Start 04/20/17 at 12:30 Glucose (Glutose) 22.5 gm Q15M PRN PO DECREASED GLUCOSE; Start 04/20/17 at 12: 30 Dextrose (D50w Syringe) 25 ml Q15M PRN IV DECREASED GLUCOSE; Start 04/20/17 at 12:30 Dextrose (D50w Syringe) 50 ml Q15M PRN IV DECREASED GLUCOSE; Start 04/20/17 at 12:30 Glucagon (Glucagen) 1 mg Q15M PRN IM DECREASED GLUCOSE; Start 04/20/17 at 12:30 Glucose (Glutose) 15 gm Q15M PRN BUCCAL DECREASED GLUCOSE; Start 04/20/17 at 12 :30 Diagnostic Test (Pha) (Accu-Chek) 1 ea 02 XX Last administered on 04/21/17 02: 00; Admin Dose 1 EA; Start 04/21/17 at 02:00 Atorvastatin Calcium (Lipitor) 40 mg QHS PO Last administered on 04/23/17 21: 05; Admin Dose 40 MG; Start 04/20/17 at 21:00 Enoxaparin Sodium (Lovenox) 40 mg DAILY SC Last administered on 04/24/17 08:39 ; Admin Dose 40 MG; Start 04/20/17 at 16:48 Isosorbide Mononitrate (Imdur) 30 mg DAILY PO Last administered on 04/24/17 08 :32; Admin Dose 30 MG; Start 04/21/17 at 09:00 Carvedilol 12.5 mg 12.5 mg BID PO Last administered on 04/24/17 08:34; Admin Dose 12.5 MG; Start 04/21/17 at 21:00 Ceftriaxone Sodium (Rocephin) 50 ml @ 100 mls/hr Q24H IVPB Last administered on 04/24/17 08:51; Admin Dose 100 MLS/HR; Start 04/22/17 at 09:00 Prednisone (Prednisone) 10 mg DAILY PO Last administered on 04/24/17 08:31; Admin Dose 10 MG; Start 04/24/17 at 09:00 Clonidine (Catapres) 0.1 mg Q6 PRN PO For Systolic BP >160 Last administered on 04/24/17 03:48; Admin Dose 0.1 MG; Start 04/24/17 at 00:30 LORENZA GIBSON MD Apr 24, 2017 18:25
--- NOTE | 2017-04-24 20:11 | CONS ---
Date/Time of Note Date/Time of Note DATE: 04/24/17 TIME: 20:08 Assessment/Plan Assessment/Plan Additional Assessment/Plan 1. Febrile illness; related to gout- afebrile. 2. Left knee pain- possible septic joint. Ortho/Rheumatology follows as well 3. improved wbc on empiric ctx 4. hx of cad and cabg Plan: cont. ctx for now f/u cxs procalcitonin anticipate short course abx only Dw Dr Castle/staff This is a 71-year-old male with pmh of cad, s/p cabg 2011, we saw him during that time, gout, arthritis, admitted with sob and dysuria. He is a moderate historian. He was noted to have a knee effusion and has been diagnosed/treated for gouty arthritis. He has been on empiric ctx. WBC has normalized. He is afebrile. CXs negative x 1 day. Consultation Date/Type/Reason Admit Date/Time Apr 20, 2017 at 10:12 Initial Consult Date 04/24/17 Type of Consultation: NEPHROLOGY Referring Provider: SURENDRA ROSE MD 24 HR Interval Summary Constitutional: improved Detailed Summary Respiratory: no complaints Cardiovascular: no complaints Gastrointestinal: no complaints Genitourinary: no complaints Musculoskeletal: no complaints Exam/Review of Systems Vital Signs Vitals Vital Signs Date Time Temp Pulse Resp B/P Pulse Ox O2 Delivery O2 Flow Rate FiO2 04/24/17 20:00 40 04/24/17 15:33 97.4 19 105/58 100 04/20/17 20:14 Room Air Exam Constitutional: alert, oriented, well developed Respiratory: clear to auscultation, normal air movement Cardiovascular: nl pulses Gastrointestinal: non-tender, soft Musculoskeletal: swelling (left knee- improving- sp steroid injection) Neurological: nl mental status, nl speech Results Result Diagram: 04/24/17 0629 04/24/17 0629 Results 24 hrs Laboratory Tests Test 04/23/17 20:58 04/24/17 02:32 04/24/17 06:29 04/24/17 08:25 Bedside Glucose 269 H 180 289 H White Blood Count 10.1 # Red Blood Count 5.03 Hemoglobin 14.4 Hematocrit 44.3 Mean Corpuscular Volume 88.1 Mean Corpuscular Hemoglobin 28.6 L Mean Corpuscular Hemoglobin Concent 32.5 Red Cell Distribution Width 12.4 Platelet Count 173 Mean Platelet Volume 11.4 H Neutrophils % 78.1 H Lymphocytes % 15.5 Monocytes % 5.6 Eosinophils % 0.0 Basophils % 0.2 Nucleated Red Blood Cells % 0.0 Neutrophils # 7.9 H Lymphocytes # 1.6 Monocytes # 0.6 Eosinophils # 0.0 Basophils # 0.0 Nucleated Red Blood Cells # 0.0 Sodium Level 139 Potassium Level 4.5 Chloride Level 106 Carbon Dioxide Level 24 Anion Gap 14 Blood Urea Nitrogen 24 H Creatinine 1.52 H Glucose Level 213 Calcium Level 9.2 Test 04/24/17 12:19 04/24/17 17:11 Bedside Glucose 288 H 164 Medications Medications Current Medications Allopurinol (Zyloprim) 100 mg DAILY PO Last administered on 04/24/17 08:33; Admin Dose 100 MG; Start 04/21/17 at 09:00 Clonidine (Catapres) 0.2 mg Q8 PO Last administered on 04/24/17 12:25; Admin Dose 0.2 MG; Start 04/20/17 at 14:00 Furosemide (Lasix) 10 mg DAILY PO Last administered on 04/24/17 08:33; Admin Dose 10 MG; Start 04/21/17 at 09:00 Hydralazine HCl (Apresoline) 100 mg Q8 PO Last administered on 04/24/17 12:25 ; Admin Dose 100 MG; Start 04/20/17 at 14:00 Acetaminophen/ Hydrocodone Bitart ([place] (5/325)) 1 tab PRN PO Last administered on 04/23/17 18:48; Admin Dose 1 TAB; Start 04/20/17 at 12:00 Insulin Glargine (Lantus) 24 unit QHS SC Last administered on 04/23/17 21:11; Admin Dose 24 UNIT; Start 04/20/17 at 21:00 Linagliptin (Tradjenta) 5 mg DAILY PO Last administered on 04/24/17 08:31; Admin Dose 5 MG; Start 04/21/17 at 09:00 Nitroglycerin (Nitroglycerin (Sl Tab) 0.4 Mg) 1 tab PRN SL ; Start 04/20/17 at 12:00 Pantoprazole (Protonix Tab) 40 mg DAILY PO Last administered on 04/24/17 08:31 ; Admin Dose 40 MG; Start 04/20/17 at 12:00 Ondansetron HCl (Zofran Inj) 4 mg Q6 PRN IV NAUSEA AND/OR VOMITING; Start 04/20 at 12:00 Docusate Sodium (Colace) 100 mg BID PO Last administered on 04/24/17 08:31; Admin Dose 100 MG; Start 04/20/17 at 21:00 Acetaminophen (Tylenol Tab) 650 mg Q6 PRN PO PAIN AND OR ELEVATED TEMP Last administered on 04/22/17 21:13; Admin Dose 650 MG; Start 04/20/17 at 12:00 Morphine Sulfate (morphine) 2 mg Q6H PRN IV PAIN LEVEL 6-10; Start 04/20/17 at 12:00 Hydralazine HCl (Apresoline) 20 mg Q6 PRN IV ELEVATED BLOOD PRESSURE Last administered on 04/24/17 00:12; Admin Dose 20 MG; Start 04/20/17 at 12:30 Miscellaneous Information 1 ea NOTE XX ; Start 04/20/17 at 12:30 Glucose (Glutose) 15 gm Q15M PRN PO DECREASED GLUCOSE; Start 04/20/17 at 12:30 Glucose (Glutose) 22.5 gm Q15M PRN PO DECREASED GLUCOSE; Start 04/20/17 at 12: 30 Dextrose (D50w Syringe) 25 ml Q15M PRN IV DECREASED GLUCOSE; Start 04/20/17 at 12:30 Dextrose (D50w Syringe) 50 ml Q15M PRN IV DECREASED GLUCOSE; Start 04/20/17 at 12:30 Glucagon (Glucagen) 1 mg Q15M PRN IM DECREASED GLUCOSE; Start 04/20/17 at 12:30 Glucose (Glutose) 15 gm Q15M PRN BUCCAL DECREASED GLUCOSE; Start 04/20/17 at 12 :30 Diagnostic Test (Pha) (Accu-Chek) 1 ea 02 XX Last administered on 04/21/17 02: 00; Admin Dose 1 EA; Start 04/21/17 at 02:00 Atorvastatin Calcium (Lipitor) 40 mg QHS PO Last administered on 04/23/17 21: 05; Admin Dose 40 MG; Start 04/20/17 at 21:00 Enoxaparin Sodium (Lovenox) 40 mg DAILY SC Last administered on 04/24/17 08:39 ; Admin Dose 40 MG; Start 04/20/17 at 16:48 Isosorbide Mononitrate (Imdur) 30 mg DAILY PO Last administered on 04/24/17 08 :32; Admin Dose 30 MG; Start 04/21/17 at 09:00 Carvedilol 12.5 mg 12.5 mg BID PO Last administered on 04/24/17 08:34; Admin Dose 12.5 MG; Start 04/21/17 at 21:00 Ceftriaxone Sodium (Rocephin) 50 ml @ 100 mls/hr Q24H IVPB Last administered on 04/24/17 08:51; Admin Dose 100 MLS/HR; Start 04/22/17 at 09:00 Prednisone (Prednisone) 10 mg DAILY PO Last administered on 04/24/17 08:31; Admin Dose 10 MG; Start 04/24/17 at 09:00 Clonidine (Catapres) 0.1 mg Q6 PRN PO For Systolic BP >160 Last administered on 04/24/17 03:48; Admin Dose 0.1 MG; Start 04/24/17 at 00:30 LOPEZ GONZALEZ Apr 24, 2017 20:11
[2017-04-24] MEDS: ATORVASTATIN 40 MG TAB PO SCH (20:39)
[2017-04-24] MEDS: INSULIN GLARGINE [LANtus] 3 ML PEN SC SCH (21:08)
[2017-04-25] VITALS (15 sets, daily range): BP systolic 119–188; BP diastolic 60–84; PULSE 46–67; RESP 17–19
[2017-04-25] MEDS: ACCU-CHEK XX SCH (02:00)
[2017-04-25] MEDS: INSULIN ASPART [NOVOLOG] 3 ML PEN SC SCH ×7 (08:00→21:07)
[2017-04-25] MEDS: CEFTRIAXONE 1 GM/50 ML (PMX) 50 ML IVPB SCH (09:36)
[2017-04-25] MEDS: DOCUSATE SODIUM 100 MG CAP PO SCH ×2 (09:36→20:58)
[2017-04-25] MEDS: LINAGLIPTIN 5 MG TABLET PO SCH (09:36)
[2017-04-25] MEDS: PANTOPRAZOLE (EC) 40 MG TAB PO SCH (09:36)
[2017-04-25] MEDS: ISOSORBIDE MONONITRATE(SR)30 MG TAB PO SCH (09:36)
[2017-04-25] MEDS: predniSONE 10 MG TAB PO SCH (09:36)
[2017-04-25] MEDS: ALLOPURINOL 100 MG TAB PO SCH (09:36)
[2017-04-25] MEDS: FUROSEMIDE 20 MG TAB PO SCH (09:37)
[2017-04-25] MEDS: ENOXAPARIN 40 MG/0.4 ML SYG SC SCH (09:39)
--- NOTE | 2017-04-25 11:21 | CONS ---
Date/Time of Note Date/Time of Note DATE: 04/25/17 TIME: 11:19 Assessment/Plan Assessment/Plan Additional Assessment/Plan 1. Febrile illness; related to gout- afebrile.nno chest pain, shortness of breath reported 2. Left knee pain- possible septic joint. Ortho/Rheumatology follows as well 3. improved wbc on empiric ctx 4. hx of cad and cabg 5. Bradycardia- HR 57 NOW- cardiology follows Plan: cont. ctx for now f/u cxs procalcitonin anticipate short course abx only Dw Dr Castle/staff This is a 71-year-old male with pmh of cad, s/p cabg 2011, we saw him during that time, gout, arthritis, admitted with sob and dysuria. He is a moderate historian. He was noted to have a knee effusion and has been diagnosed/treated for gouty arthritis. He has been on empiric ctx. WBC has normalized. He is afebrile. CXs negative x 1 day. Consultation Date/Type/Reason Admit Date/Time Apr 20, 2017 at 10:12 Initial Consult Date 04/24/17 Type of Consultation: NEPHROLOGY Referring Provider: SURENDRA ROSE MD Exam/Review of Systems Vital Signs Vitals Vital Signs Date Time Temp Pulse Resp B/P Pulse Ox O2 Delivery O2 Flow Rate FiO2 04/25/17 08:05 46 04/25/17 07:43 97.7 18 142/62 94 Intake and Output 04/24/17 04/24/17 04/25/17 15:00 23:00 07:00 Intake Total 500 ml Balance 500 ml Exam Constitutional: alert, oriented, well developed Respiratory: clear to auscultation, normal air movement Cardiovascular: nl pulses, regular rate and rhythm Gastrointestinal: non-tender, soft Musculoskeletal: swelling (left knee) Extremities: normal pulses Neurological: nl mental status, nl speech Results Result Diagram: 04/24/17 0629 04/24/17 0629 Results 24 hrs Laboratory Tests Test 04/24/17 12:19 04/24/17 17:11 04/24/17 20:43 04/25/17 02:21 Bedside Glucose 288 H 164 161 192 Test 04/25/17 08:16 Bedside Glucose 195 Medications Medications Current Medications Allopurinol (Zyloprim) 100 mg DAILY PO Last administered on 04/25/17t 09:36; Admin Dose 100 MG; Start 04/21/17 at 09:00 Clonidine (Catapres) 0.2 mg Q8 PO Last administered on 04/25/17 05:55; Admin Dose 0.2 MG; Start 04/20/17 at 14:00 Furosemide (Lasix) 10 mg DAILY PO Last administered on 04/25/17 09:37; Admin Dose 10 MG; Start 04/21/17 at 09:00 Hydralazine HCl (Apresoline) 100 mg Q8 PO Last administered on 04/25/17 05:55 ; Admin Dose 100 MG; Start 04/20/17 at 14:00 Acetaminophen/ Hydrocodone Bitart ([place] (5/325)) 1 tab PRN PO Last administered on 04/23/17 18:48; Admin Dose 1 TAB; Start 04/20/17 at 12:00 Insulin Glargine (Lantus) 24 unit QHS SC Last administered on 04/24/17 21:08; Admin Dose 24 UNIT; Start 04/20/17 at 21:00 Linagliptin (Tradjenta) 5 mg DAILY PO Last administered on 04/25/17 09:36; Admin Dose 5 MG; Start 04/21/17 at 09:00 Nitroglycerin (Nitroglycerin (Sl Tab) 0.4 Mg) 1 tab PRN SL ; Start 04/20/17 at 12:00 Pantoprazole (Protonix Tab) 40 mg DAILY PO Last administered on 04/25/17 09:36 ; Admin Dose 40 MG; Start 04/20/17 at 12:00 Ondansetron HCl (Zofran Inj) 4 mg Q6 PRN IV NAUSEA AND/OR VOMITING; Start 04/20 at 12:00 Docusate Sodium (Colace) 100 mg BID PO Last administered on 04/25/17 09:36; Admin Dose 100 MG; Start 04/20/17 at 21:00 Acetaminophen (Tylenol Tab) 650 mg Q6 PRN PO PAIN AND OR ELEVATED TEMP Last administered on 04/22/17 21:13; Admin Dose 650 MG; Start 04/20/17 at 12:00 Morphine Sulfate (morphine) 2 mg Q6H PRN IV PAIN LEVEL 6-10; Start 04/20/17 at 12:00 Hydralazine HCl (Apresoline) 20 mg Q6 PRN IV ELEVATED BLOOD PRESSURE Last administered on 04/24/17 00:12; Admin Dose 20 MG; Start 04/20/17 at 12:30 Miscellaneous Information 1 ea NOTE XX ; Start 04/20/17 at 12:30 Glucose (Glutose) 15 gm Q15M PRN PO DECREASED GLUCOSE; Start 04/20/17 at 12:30 Glucose (Glutose) 22.5 gm Q15M PRN PO DECREASED GLUCOSE; Start 04/20/17 at 12: 30 Dextrose (D50w Syringe) 25 ml Q15M PRN IV DECREASED GLUCOSE; Start 04/20/17 at 12:30 Dextrose (D50w Syringe) 50 ml Q15M PRN IV DECREASED GLUCOSE; Start 04/20/17 at 12:30 Glucagon (Glucagen) 1 mg Q15M PRN IM DECREASED GLUCOSE; Start 04/20/17 at 12:30 Glucose (Glutose) 15 gm Q15M PRN BUCCAL DECREASED GLUCOSE; Start 04/20/17 at 12 :30 Diagnostic Test (Pha) (Accu-Chek) 1 ea 02 XX Last administered on 04/21/17 02: 00; Admin Dose 1 EA; Start 04/21/17 at 02:00 Atorvastatin Calcium (Lipitor) 40 mg QHS PO Last administered on 04/24/17 20: 39; Admin Dose 40 MG; Start 04/20/17 at 21:00 Enoxaparin Sodium (Lovenox) 40 mg DAILY SC Last administered on 04/25/17 09:39 ; Admin Dose 40 MG; Start 04/20/17 at 16:48 Isosorbide Mononitrate (Imdur) 30 mg DAILY PO Last administered on 04/25/17 09 :36; Admin Dose 30 MG; Start 04/21/17 at 09:00 Carvedilol 12.5 mg 12.5 mg BID PO Last administered on 04/24/17 08:34; Admin Dose 12.5 MG; Start 04/21/17 at 21:00 Ceftriaxone Sodium (Rocephin) 50 ml @ 100 mls/hr Q24H IVPB Last administered on 04/25/17 09:36; Admin Dose 100 MLS/HR; Start 04/22/17 at 09:00 Prednisone (Prednisone) 10 mg DAILY PO Last administered on 04/25/17 09:36; Admin Dose 10 MG; Start 04/24/17 at 09:00 Clonidine (Catapres) 0.1 mg Q6 PRN PO For Systolic BP >160 Last administered on 04/24/17 03:48; Admin Dose 0.1 MG; Start 04/24/17 at 00:30 LOPEZ GONZALEZ Apr 25, 2017 11:21
--- NOTE | 2017-04-25 12:45 | PN ---
Date/Time of Note Date/Time of Note DATE: 04/25/17 TIME: 12:45 Assessment/Plan VTE Prophylaxis VTE Prophylaxis Intervention: other Lines/Catheters IV Catheter Type (from Nrs): Sal[facility] Lock Urinary Cath still in place: No Assessment/Plan Chief Complaint/Hosp Course -Left knee swelling/redness- possible septic joint - XRAY left knee - us left knee - ortho consult - rheumatology -Febrile Condition- afebrile at present - per ID consult- Dr Castle - Blood C/S - Urine- C/S, UA - cxr - Atrial flutter with some slow ventricular response at times of 40s on beta raffi.-now improved on lower dose of BB, HR 61 - Cardiology follows -Chest pain- none at present - cont on Tele - per cardiology consult- Dr Montaño - 1800cAL ada, Low Cholesterol, low Na S/P CABG X 4 Vessels HTN- improved HYPERLIPIDEMIA - cont Atorvastatin 40 mg po QHS - weight management - Dietary consult DM - Glycemic control - Hgb am - director of resource development Consult - Dietary consult Edema- BLE- Neg for DVT Problems: Subjective 24 Hr Interval Summary Free Text/Dictation Patient denies any complaints Exam/Review of Systems Vital Signs Vitals Vital Signs Date Time Temp Pulse Resp B/P Pulse Ox O2 Delivery O2 Flow Rate FiO2 04/25/17 12:05 56 04/25/17 11:40 97.7 18 148/65 97 Intake and Output 04/24/17 04/24/17 04/25/17 15:00 23:00 07:00 Intake Total 500 ml Balance 500 ml Exam Constitutional: well developed Head: atraumatic, normocephalic Neck: supple Respiratory: clear to auscultation Cardiovascular: regular rate and rhythm Gastrointestinal: non-tender, soft Extremities: normal pulses Results Result Diagram: 04/24/17 0629 04/24/1729 Results 24 hrs Laboratory Tests Test 04/24/17 17:11 04/24/17 20:43 04/25/17 02:21 04/25/17 08:16 Bedside Glucose 164 161 192 195 Medications Medications Current Medications Allopurinol (Zyloprim) 100 mg DAILY PO Last administered on 04/25/17 09:36; Admin Dose 100 MG; Start 04/21/17 at 09:00 Clonidine (Catapres) 0.2 mg Q8 PO Last administered on 04/25/17 05:55; Admin Dose 0.2 MG; Start 04/20/17 at 14:00 Furosemide (Lasix) 10 mg DAILY PO Last administered on 04/25/17 09:37; Admin Dose 10 MG; Start 04/21/17 at 09:00 Hydralazine HCl (Apresoline) 100 mg Q8 PO Last administered on 04/25/17 05:55 ; Admin Dose 100 MG; Start 04/20/17 at 14:00 Acetaminophen/ Hydrocodone Bitart ([place] (5/325)) 1 tab PRN PO Last administered on 04/23/17 18:48; Admin Dose 1 TAB; Start 04/20/17 at 12:00 Insulin Glargine (Lantus) 24 unit QHS SC Last administered on 04/24/17 21:08; Admin Dose 24 UNIT; Start 04/20/17 at 21:00 Linagliptin (Tradjenta) 5 mg DAILY PO Last administered on 04/25/17 09:36; Admin Dose 5 MG; Start 04/21/17 at 09:00 Nitroglycerin (Nitroglycerin (Sl Tab) 0.4 Mg) 1 tab PRN SL ; Start 04/20/17 at 12:00 Pantoprazole (Protonix Tab) 40 mg DAILY PO Last administered on 04/25/17 09:36 ; Admin Dose 40 MG; Start 04/20/17 at 12:00 Ondansetron HCl (Zofran Inj) 4 mg Q6 PRN IV NAUSEA AND/OR VOMITING; Start 04/20 at 12:00 Docusate Sodium (Colace) 100 mg BID PO Last administered on 04/25/17 09:36; Admin Dose 100 MG; Start 04/20/17 at 21:00 Acetaminophen (Tylenol Tab) 650 mg Q6 PRN PO PAIN AND OR ELEVATED TEMP Last administered on 04/22/17 21:13; Admin Dose 650 MG; Start 04/20/17 at 12:00 Morphine Sulfate (morphine) 2 mg Q6H PRN IV PAIN LEVEL 6-10; Start 04/20/17 at 12:00 Hydralazine HCl (Apresoline) 20 mg Q6 PRN IV ELEVATED BLOOD PRESSURE Last administered on 04/24/17 00:12; Admin Dose 20 MG; Start 04/20/17 at 12:30 Miscellaneous Information 1 ea NOTE XX ; Start 04/20/17 at 12:30 Glucose (Glutose) 15 gm Q15M PRN PO DECREASED GLUCOSE; Start 04/20/17 at 12:30 Glucose (Glutose) 22.5 gm Q15M PRN PO DECREASED GLUCOSE; Start 04/20/17 at 12: 30 Dextrose (D50w Syringe) 25 ml Q15M PRN IV DECREASED GLUCOSE; Start 04/20/17 at 12:30 Dextrose (D50w Syringe) 50 ml Q15M PRN IV DECREASED GLUCOSE; Start 04/20/17 at 12:30 Glucagon (Glucagen) 1 mg Q15M PRN IM DECREASED GLUCOSE; Start 04/20/17 at 12:30 Glucose (Glutose) 15 gm Q15M PRN BUCCAL DECREASED GLUCOSE; Start 04/20/17 at 12 :30 Diagnostic Test (Pha) (Accu-Chek) 1 ea 02 XX Last administered on 04/21/17 02: 00; Admin Dose 1 EA; Start 04/21/17 at 02:00 Atorvastatin Calcium (Lipitor) 40 mg QHS PO Last administered on 04/24/17 20: 39; Admin Dose 40 MG; Start 04/20/17 at 21:00 Enoxaparin Sodium (Lovenox) 40 mg DAILY SC Last administered on 04/25/17 09:39 ; Admin Dose 40 MG; Start 04/20/17 at 16:48 Isosorbide Mononitrate (Imdur) 30 mg DAILY PO Last administered on 04/25/17 09 :36; Admin Dose 30 MG; Start 04/21/17 at 09:00 Carvedilol 12.5 mg 12.5 mg BID PO Last administered on 04/24/17 08:34; Admin Dose 12.5 MG; Start 04/21/17 at 21:00 Ceftriaxone Sodium (Rocephin) 50 ml @ 100 mls/hr Q24H IVPB Last administered on 04/25/17 09:36; Admin Dose 100 MLS/HR; Start 04/22/17 at 09:00 Prednisone (Prednisone) 10 mg DAILY PO Last administered on 04/25/17 09:36; Admin Dose 10 MG; Start 04/24/17 at 09:00 Clonidine (Catapres) 0.1 mg Q6 PRN PO For Systolic BP >160 Last administered on 04/24/17t 03:48; Admin Dose 0.1 MG; Start 04/24/17 at 00:30 RED TROTTER Apr 25, 2017 12:45
[2017-04-25] MEDS: COLCHICINE 0.6 MG TAB PO SCH (12:57)
--- NOTE | 2017-04-25 13:29 | CONS ---
Date/Time of Note Date/Time of Note DATE: 04/25/17 TIME: 13:27 Assessment/Plan Assessment/Plan Additional Assessment/Plan 1. Chest pain. Assess for acute coronary syndrome with negative troponins x3 - small mostly irreversible changes on Shanda - MED Rx advised [employer] CP now. 2. Atrial flutter with some slow ventricular response at times down to the 40s on beta raffi.-now improved on lower dose of BB - better, no indication for pacer now. Rate controlled. BP stable now, even with low HR. 3. Abnormal electrocardiogram with nonspecific ST and T-wave abnormalities - A. FL noted - abatable as outpt if pt agrees. 4. Coronary artery disease, status post coronary artery bypass graft surgery 2012- med rx advised. 5. Dyslipidemia. 6. Gout. Consultation Date/Type/Reason Admit Date/Time Apr 20, 2017 at 10:12 Initial Consult Date 04/20/17 Type of Consultation: NEPHROLOGY Referring Provider: SURENDRA ROSE MD 24 HR Interval Summary Free Text/Dictation NO acute events - pt stable overall. ROS: No fever, no chills, no nausea, no vomiting, no diarrhea/constipation No recent weight changes No chest pain, no PND, no orthopnea No dizziness, blurred vision No thirst, no heat or cold intolerance Exam/Review of Systems Vital Signs Vitals Vital Signs Date Time Temp Pulse Resp B/P Pulse Ox O2 Delivery O2 Flow Rate FiO2 04/25/17 13:24 64 186/84 04/25/17 11:40 97.7 18 97 Intake and Output 04/24/17 04/24/17 04/25/17 15:00 23:00 07:00 Intake Total 500 ml Balance 500 ml Exam General: WN/WD/NAD, AOx 2-3 HEENT: Unicetric/atraumatic/EOMI (follows commands) NECK: JVD elevated, no thyromegaly Lymph: no lymphadenopathy HEART: Irregular with no S3, II/ systolic murmur at apex LUNGS: Coarse sounds ABD: soft, NT, ND, +BS : Intact Neuro: non focal SKIN: chronic changes EXT: trace edema Results Result Diagram: 04/24/17 0629 04/24/17 0629 Results 24 hrs Laboratory Tests Test 04/24/17 17:11 04/24/17 20:43 04/25/17 02:21 04/25/17 08:16 Bedside Glucose 164 161 192 195 Test 04/25/17 12:45 Bedside Glucose 208 Medications Medications Current Medications Allopurinol (Zyloprim) 100 mg DAILY PO Last administered on 04/25/17 09:36; Admin Dose 100 MG; Start 04/21/17 at 09:00 Clonidine (Catapres) 0.2 mg Q8 PO Last administered on 04/25/17 13:23; Admin Dose 0.2 MG; Start 04/20/17 at 14:00 Furosemide (Lasix) 10 mg DAILY PO Last administered on 04/25/17 09:37; Admin Dose 10 MG; Start 04/21/17 at 09:00 Hydralazine HCl (Apresoline) 100 mg Q8 PO Last administered on 04/25/17 13:24 ; Admin Dose 100 MG; Start 04/20/17 at 14:00 Acetaminophen/ Hydrocodone Bitart ([place] (5/325)) 1 tab PRN PO Last administered on 04/23/17 18:48; Admin Dose 1 TAB; Start 04/20/17 at 12:00 Insulin Glargine (Lantus) 24 unit QHS SC Last administered on 04/24/17 21:08; Admin Dose 24 UNIT; Start 04/20/17 at 21:00 Linagliptin (Tradjenta) 5 mg DAILY PO Last administered on 04/25/17 09:36; Admin Dose 5 MG; Start 04/21/17 at 09:00 Nitroglycerin (Nitroglycerin (Sl Tab) 0.4 Mg) 1 tab PRN SL ; Start 04/20/17 at 12:00 Pantoprazole (Protonix Tab) 40 mg DAILY PO Last administered on 04/25/17 09:36 ; Admin Dose 40 MG; Start 04/20/17 at 12:00 Ondansetron HCl (Zofran Inj) 4 mg Q6 PRN IV NAUSEA AND/OR VOMITING; Start 04/20 at 12:00 Docusate Sodium (Colace) 100 mg BID PO Last administered on 04/25/17 09:36; Admin Dose 100 MG; Start 04/20/17 at 21:00 Acetaminophen (Tylenol Tab) 650 mg Q6 PRN PO PAIN AND OR ELEVATED TEMP Last administered on 04/22/17 21:13; Admin Dose 650 MG; Start 04/20/17 at 12:00 Morphine Sulfate (morphine) 2 mg Q6H PRN IV PAIN LEVEL 6-10; Start 04/20/17 at 12:00 Hydralazine HCl (Apresoline) 20 mg Q6 PRN IV ELEVATED BLOOD PRESSURE Last administered on 04/24/17 00:12; Admin Dose 20 MG; Start 04/20/17 at 12:30 Miscellaneous Information 1 ea NOTE XX ; Start 04/20/17 at 12:30 Glucose (Glutose) 15 gm Q15M PRN PO DECREASED GLUCOSE; Start 04/20/17 at 12:30 Glucose (Glutose) 22.5 gm Q15M PRN PO DECREASED GLUCOSE; Start 04/20/17 at 12: 30 Dextrose (D50w Syringe) 25 ml Q15M PRN IV DECREASED GLUCOSE; Start 04/20/17 at 12:30 Dextrose (D50w Syringe) 50 ml Q15M PRN IV DECREASED GLUCOSE; Start 04/20/17 at 12:30 Glucagon (Glucagen) 1 mg Q15M PRN IM DECREASED GLUCOSE; Start 04/20/17 at 12:30 Glucose (Glutose) 15 gm Q15M PRN BUCCAL DECREASED GLUCOSE; Start 04/20/17 at 12 :30 Diagnostic Test (Pha) (Accu-Chek) 1 ea 02 XX Last administered on 04/21/17 02: 00; Admin Dose 1 EA; Start 04/21/17 at 02:00 Atorvastatin Calcium (Lipitor) 40 mg QHS PO Last administered on 04/24/17 20: 39; Admin Dose 40 MG; Start 04/20/17 at 21:00 Enoxaparin Sodium (Lovenox) 40 mg DAILY SC Last administered on 04/25/17 09:39 ; Admin Dose 40 MG; Start 04/20/17 at 16:48 Isosorbide Mononitrate (Imdur) 30 mg DAILY PO Last administered on 04/25/17 09 :36; Admin Dose 30 MG; Start 04/21/17 at 09:00 Carvedilol 12.5 mg 12.5 mg BID PO Last administered on 04/24/17 08:34; Admin Dose 12.5 MG; Start 04/21/17 at 21:00 Ceftriaxone Sodium (Rocephin) 50 ml @ 100 mls/hr Q24H IVPB Last administered on 04/25/17 09:36; Admin Dose 100 MLS/HR; Start 04/22/17 at 09:00 Prednisone (Prednisone) 10 mg DAILY PO Last administered on 04/25/17 09:36; Admin Dose 10 MG; Start 04/24/17 at 09:00 Clonidine (Catapres) 0.1 mg Q6 PRN PO For Systolic BP >160 Last administered on 04/24/17 03:48; Admin Dose 0.1 MG; Start 04/24/17 at 00:30 TK AVILA MD Apr 25, 2017 13:29
[2017-04-25] MEDS: hydrALAzine 20 MG INJ IV PRN (16:18)
[2017-04-25] MEDS: ATORVASTATIN 40 MG TAB PO SCH (21:00)
[2017-04-25] MEDS: INSULIN GLARGINE [LANtus] 3 ML PEN SC SCH (21:05)
[2017-04-26] VITALS (14 sets, daily range): BP systolic 143–216; BP diastolic 63–97; PULSE 59–75; RESP 18
[2017-04-26] MEDS: ACCU-CHEK XX SCH (02:00)
[2017-04-26] MEDS: INSULIN ASPART [NOVOLOG] 3 ML PEN SC SCH ×7 (07:30→20:43)
[2017-04-26 08:16] LABS: BASOPHILS % 0.1 % (0.0-2.0); EOSINOPHILS # 0.1 10^3/ul (0.0-0.5); EOSINOPHILS % 0.9 % (0.0-7.0); HEMATOCRIT 45.7 % (42.0-52.0); HEMOGLOBIN 14.5 g/dl (14.0-18.0); LYMPHOCYTES # 2.5 10^3/ul (0.8-2.9); LYMPHOCYTES % 15.6 % (15.0-51.0); MEAN CORPUSCULAR HEMOGLOBIN 28.7 pg (29.0-33.0); MEAN CORPUSCULAR HGB CONC 31.7 g/dl (32.0-37.0); MEAN CORPUSCULAR VOLUME 90.5 fl (82.0-101.0); MONOCYTE # 1.3 10^3/ul (0.3-0.9); MONOCYTES % 8.3 % (0.0-11.0); NEUTROPHIL # 11.9 10^3/ul (1.6-7.5); NEUTROPHILS % 74.2 % (39.0-77.0); PLATELET COUNT 249 10^3/UL (140-415); RED BLOOD COUNT 5.05 10^6/ul (4.70-6.10); RED CELL DISTRIBUTION WIDTH 12.9 % (11.5-14.5); WHITE BLOOD COUNT 16.1 10^3/ul (4.8-10.8)
[2017-04-26] MEDS: FUROSEMIDE 20 MG TAB PO SCH (08:25)
[2017-04-26] MEDS: PANTOPRAZOLE (EC) 40 MG TAB PO SCH (08:26)
[2017-04-26] MEDS: predniSONE 10 MG TAB PO SCH (08:26)
[2017-04-26] MEDS: DOCUSATE SODIUM 100 MG CAP PO SCH ×2 (08:26→20:45)
[2017-04-26] MEDS: LINAGLIPTIN 5 MG TABLET PO SCH (08:26)
[2017-04-26] MEDS: ALLOPURINOL 100 MG TAB PO SCH (08:27)
[2017-04-26] MEDS: ISOSORBIDE MONONITRATE(SR)30 MG TAB PO SCH (08:27)
[2017-04-26] MEDS: CEFTRIAXONE 1 GM/50 ML (PMX) 50 ML IVPB SCH (08:27)
[2017-04-26] MEDS: ENOXAPARIN 40 MG/0.4 ML SYG SC SCH (08:32)
[2017-04-26 08:58] LABS: CALCIUM 9.4 mg/dl (8.4-10.2); CREATININE 1.71 mg/dl (0.61-1.24); POTASSIUM 4.7 mmol/L (3.5-5.1)
--- NOTE | 2017-04-26 09:25 | CONS ---
Date/Time of Note Date/Time of Note DATE: 04/26/17 TIME: 09:23 Assessment/Plan Assessment/Plan Additional Assessment/Plan 1. Chest pain. 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 2. Atrial flutter with some slow ventricular response at times down to the 40s on beta raffi.-now improved on lower dose of BB - better, no indication for pacer now. Rate controlled. RATE BETTER NOW - PT FEELS well. 3. Abnormal electrocardiogram with nonspecific ST and T-wave abnormalities - A. FL noted - abatable as outpt if pt agrees. 4. Coronary artery disease, status post coronary artery bypass graft surgery 2012- med rx advised. 5. Dyslipidemia. 6. Gout. 7. HTN - on high side - add Rx now. Consultation Date/Type/Reason Admit Date/Time Apr 20, 2017 at 10:12 Initial Consult Date 04/20/17 Type of Consultation: NEPHROLOGY Referring Provider: SURENDRA ROSE MD 24 HR Interval Summary Free Text/Dictation NO acute events - HT better - BP high, will add therapy. ROS: No fever, no chills, no nausea, no vomiting, no diarrhea/constipation No recent weight changes No chest pain, no PND, no orthopnea No dizziness, blurred vision No thirst, no heat or cold intolerance Exam/Review of Systems Vital Signs Vitals Vital Signs Date Time Temp Pulse Resp B/P Pulse Ox O2 Delivery O2 Flow Rate FiO2 04/26/17 08:12 75 04/26/17 07:55 98.6 18 170/78 94 Intake and Output 04/25/17 04/25/17 04/26/17 15:00 23:00 07:00 Intake Total 1000 ml 500 ml Output Total 1200 ml 800 ml Balance -200 ml -300 ml Exam General: WN/WD/NAD, AOx 3 HEENT: Unicetric/atraumatic/EOMI (follows commands) NECK: JVD elevated, no thyromegaly Lymph: no lymphadenopathy HEART: Irregular with no S3, II/ systolic murmur at apex LUNGS: Coarse sounds ABD: soft, NT, ND, +BS : Intact Neuro: non focal SKIN: chronic changes EXT: trace edema Results Result Diagram: 04/26/1761904/26/17 0620 Results 24 hrs Laboratory Tests Test 9/17/17 12:45 04/25/17 17:06 04/25/17 20:49 04/26/17 04:18 Bedside Glucose 208 235 H 237 H 210 Test 04/26/17 06:20 04/26/17 08:07 White Blood Count 16.1 #H Red Blood Count 5.05 Hemoglobin 14.5 Hematocrit 45.7 Mean Corpuscular Volume 90.5 Mean Corpuscular Hemoglobin 28.7 L Mean Corpuscular Hemoglobin Concent 31.7 L Red Cell Distribution Width 12.9 Platelet Count 249 # Mean Platelet Volume 11.0 H Neutrophils % 74.2 Lymphocytes % 15.6 Monocytes % 8.3 Eosinophils % 0.9 Basophils % 0.1 Nucleated Red Blood Cells % 0.0 Neutrophils # 11.9 H Lymphocytes # 2.5 Monocytes # 1.3 H Eosinophils # 0.1 Basophils # 0.0 Nucleated Red Blood Cells # 0.0 Sodium Level 140 Potassium Level 4.7 Chloride Level 105 Carbon Dioxide Level 28 Anion Gap 12 Blood Urea Nitrogen 38 #H Creatinine 1.71 H Glucose Level 182 Calcium Level 9.4 Bedside Glucose 169 Medications Medications Current Medications Allopurinol (Zyloprim) 100 mg DAILY PO Last administered on 04/26/17 08:27; Admin Dose 100 MG; Start 04/21/17 at 09:00 Clonidine (Catapres) 0.2 mg Q8 PO Last administered on 04/26/17 05:39; Admin Dose 0.2 MG; Start 04/20/17 at 14:00 Furosemide (Lasix) 10 mg DAILY PO Last administered on 04/26/17 08:25; Admin Dose 10 MG; Start 04/21/17 at 09:00 Hydralazine HCl (Apresoline) 100 mg Q8 PO Last administered on 04/26/17 05:39 ; Admin Dose 100 MG; Start 04/20/17 at 14:00 Acetaminophen/ Hydrocodone Bitart ([place] (5/325)) 1 tab PRN PO Last administered on 04/23/17 18:48; Admin Dose 1 TAB; Start 04/20/17 at 12:00 Insulin Glargine (Lantus) 24 unit QHS SC Last administered on 04/25/17 21:05; Admin Dose 24 UNIT; Start 04/20/17 at 21:00 Linagliptin (Tradjenta) 5 mg DAILY PO Last administered on 04/26/17 08:26; Admin Dose 5 MG; Start 04/21/17 at 09:00 Nitroglycerin (Nitroglycerin (Sl Tab) 0.4 Mg) 1 tab PRN SL ; Start 04/20/17 at 12:00 Pantoprazole (Protonix Tab) 40 mg DAILY PO Last administered on 04/26/17 08:26 ; Admin Dose 40 MG; Start 04/20/17 at 12:00 Ondansetron HCl (Zofran Inj) 4 mg Q6 PRN IV NAUSEA AND/OR VOMITING; Start 04/20 at 12:00 Docusate Sodium (Colace) 100 mg BID PO Last administered on 04/26/17 08:26; Admin Dose 100 MG; Start 04/20/17 at 21:00 Acetaminophen (Tylenol Tab) 650 mg Q6 PRN PO PAIN AND OR ELEVATED TEMP Last administered on 04/22/17 21:13; Admin Dose 650 MG; Start 04/20/17 at 12:00 Morphine Sulfate (morphine) 2 mg Q6H PRN IV PAIN LEVEL 6-10; Start 04/20/17 at 12:00 Hydralazine HCl (Apresoline) 20 mg Q6 PRN IV ELEVATED BLOOD PRESSURE Last administered on 04/25/17 16:18; Admin Dose 20 MG; Start 04/20/17 at 12:30 Miscellaneous Information 1 ea NOTE XX ; Start 04/20/17 at 12:30 Glucose (Glutose) 15 gm Q15M PRN PO DECREASED GLUCOSE; Start 04/20/17 at 12:30 Glucose (Glutose) 22.5 gm Q15M PRN PO DECREASED GLUCOSE; Start 04/20/17 at 12: 30 Dextrose (D50w Syringe) 25 ml Q15M PRN IV DECREASED GLUCOSE; Start 04/20/17 at 12:30 Dextrose (D50w Syringe) 50 ml Q15M PRN IV DECREASED GLUCOSE; Start 04/20/17 at 12:30 Glucagon (Glucagen) 1 mg Q15M PRN IM DECREASED GLUCOSE; Start 04/20/17 at 12:30 Glucose (Glutose) 15 gm Q15M PRN BUCCAL DECREASED GLUCOSE; Start 04/20/17 at 12 :30 Diagnostic Test (Pha) (Accu-Chek) 1 ea 02 XX Last administered on 04/21/17 02: 00; Admin Dose 1 EA; Start 04/21/17 at 02:00 Atorvastatin Calcium (Lipitor) 40 mg QHS PO Last administered on 04/25/17 21: 00; Admin Dose 40 MG; Start 04/20/17 at 21:00 Enoxaparin Sodium (Lovenox) 40 mg DAILY SC Last administered on 04/26/17 08:32 ; Admin Dose 40 MG; Start 04/20/17 at 16:48 Isosorbide Mononitrate (Imdur) 30 mg DAILY PO Last administered on 04/26/17 08 :27; Admin Dose 30 MG; Start 04/21/17 at 09:00 Carvedilol 12.5 mg 12.5 mg BID PO Last administered on 04/25/17 21:00; Admin Dose 12.5 MG; Start 04/21/17 at 21:00 Ceftriaxone Sodium (Rocephin) 50 ml @ 100 mls/hr Q24H IVPB Last administered on 04/26/17 08:27; Admin Dose 100 MLS/HR; Start 04/22/17 at 09:00 Prednisone (Prednisone) 10 mg DAILY PO Last administered on 04/26/17 08:26; Admin Dose 10 MG; Start 04/24/17 at 09:00 Clonidine (Catapres) 0.1 mg Q6 PRN PO For Systolic BP >160 Last administered on 04/24/17 03:48; Admin Dose 0.1 MG; Start 04/24/17 at 00:30 TK AVILA MD Apr 26, 2017 09:25
[2017-04-26] MEDS: hydrALAzine 20 MG INJ IV PRN (12:41)
[2017-04-26] MEDS: COLCHICINE 0.6 MG TAB PO SCH (12:41)
--- NOTE | 2017-04-26 13:33 | PN ---
Date/Time of Note Date/Time of Note DATE: 04/26/17 TIME: 13:27 Assessment/Plan VTE Prophylaxis VTE Prophylaxis Intervention: SCD's Lines/Catheters IV Catheter Type (from Nrs): Saline Lock Assessment/Plan Chief Complaint/Hosp Course Patient denies any chest pain denies any shortness of breath stated that his left knee pain is improved, wants to go home however patient had elevated blood pressure systolic blood pressure being 193. BP medication was optimized by cardiology continue to monitor on telemetry floor. Problems: Assessment/Plan - HTN, BP medication is optimized by cardiology and on Dr. Montaño is following. - Chest pain. negative troponins x3, small mostly irreversible changes on Shanda. - Atrial flutter with some slow ventricular response at times down to the 40s on beta raffi. - Coronary artery disease, status post coronary artery bypass graft surgery 2012 - med rx advised. - Dyslipidemia. - Gout. Status post left knee steroid injection by Dr. Morales, orthopedic surgery - DM. Continue Lantus and pre-meal NovoLog. Further recommendations based on clinical course. Of care discussed with Dr. Naranjo. Exam/Review of Systems Vital Signs Vitals Vital Signs Date Time Temp Pulse Resp B/P Pulse Ox O2 Delivery O2 Flow Rate FiO2 04/26/17 12:01 62 04/26/17 11:49 97.9 18 193/86 100 Intake and Output 04/25/17 04/25/17 04/26/17 14:59 22:59 06:59 Intake Total 1000 ml 500 ml Output Total 1200 ml 800 ml Balance -200 ml -300 ml Exam Constitutional: alert Neck: supple Respiratory: clear to auscultation Cardiovascular: irregular rhythm Gastrointestinal: non-tender, soft Musculoskeletal: nl extremities to inspection, swelling Extremities: normal pulses (Left knee) Results Result Diagram: 04/26/17 0620 04/26/17 0620 Results 24 hrs Laboratory Tests Test 04/25/17 17:06 04/25/17 20:49 04/26/17 04:18 04/26/17 06:20 Bedside Glucose 235 H 237 H 210 White Blood Count 16.1 #H Red Blood Count 5.05 Hemoglobin 14.5 Hematocrit 45.7 Mean Corpuscular Volume 90.5 Mean Corpuscular Hemoglobin 28.7 L Mean Corpuscular Hemoglobin Concent 31.7 L Red Cell Distribution Width 12.9 Platelet Count 249 # Mean Platelet Volume 11.0 H Neutrophils % 74.2 Lymphocytes % 15.6 Monocytes % 8.3 Eosinophils % 0.9 Basophils % 0.1 Nucleated Red Blood Cells % 0.0 Neutrophils # 11.9 H Lymphocytes # 2.5 Monocytes # 1.3 H Eosinophils # 0.1 Basophils # 0.0 Nucleated Red Blood Cells # 0.0 Sodium Level 140 Potassium Level 4.7 Chloride Level 105 Carbon Dioxide Level 28 Anion Gap 12 Blood Urea Nitrogen 38 #H Creatinine 1.71 H Glucose Level 182 Calcium Level 9.4 Test 04/26/17 08:07 04/26/17 12:19 Bedside Glucose 169 311 H Medications Medications Current Medications Allopurinol (Zyloprim) 100 mg DAILY PO Last administered on 04/26/17 08:27; Admin Dose 100 MG; Start 04/21/17 at 09:00 Clonidine (Catapres) 0.2 mg Q8 PO Last administered on 04/26/17 05:39; Admin Dose 0.2 MG; Start 04/20/17 at 14:00 Furosemide (Lasix) 10 mg DAILY PO Last administered on 04/26/17 08:25; Admin Dose 10 MG; Start 04/21/17 at 09:00 Hydralazine HCl (Apresoline) 100 mg Q8 PO Last administered on 04/26/17 05:39 ; Admin Dose 100 MG; Start 04/20/17 at 14:00 Acetaminophen/ Hydrocodone Bitart ([place] (5/325)) 1 tab PRN PO Last administered on 04/23/17 18:48; Admin Dose 1 TAB; Start 04/20/17 at 12:00 Insulin Glargine (Lantus) 24 unit QHS SC Last administered on 04/25/17 21:05; Admin Dose 24 UNIT; Start 04/20/17 at 21:00 Linagliptin (Tradjenta) 5 mg DAILY PO Last administered on 04/26/17 08:26; Admin Dose 5 MG; Start 04/21/17 at 09:00 Nitroglycerin (Nitroglycerin (Sl Tab) 0.4 Mg) 1 tab PRN SL ; Start 04/20/17 at 12:00 Pantoprazole (Protonix Tab) 40 mg DAILY PO Last administered on 04/26/17 08:26 ; Admin Dose 40 MG; Start 04/20/17 at 12:00 Ondansetron HCl (Zofran Inj) 4 mg Q6 PRN IV NAUSEA AND/OR VOMITING; Start 04/20 at 12:00 Docusate Sodium (Colace) 100 mg BID PO Last administered on 04/26/17 08:26; Admin Dose 100 MG; Start 04/20/17 at 21:00 Acetaminophen (Tylenol Tab) 650 mg Q6 PRN PO PAIN AND OR ELEVATED TEMP Last administered on 04/22/17 21:13; Admin Dose 650 MG; Start 04/20/17 at 12:00 Morphine Sulfate (morphine) 2 mg Q6H PRN IV PAIN LEVEL 6-10; Start 04/20/17 at 12:00 Hydralazine HCl (Apresoline) 20 mg Q6 PRN IV ELEVATED BLOOD PRESSURE Last administered on 04/26/17 12:41; Admin Dose 20 MG; Start 04/20/17 at 12:30 Miscellaneous Information 1 ea NOTE XX ; Start 04/20/17 at 12:30 Glucose (Glutose) 15 gm Q15M PRN PO DECREASED GLUCOSE; Start 04/20/17 at 12:30 Glucose (Glutose) 22.5 gm Q15M PRN PO DECREASED GLUCOSE; Start 04/20/17 at 12: 30 Dextrose (D50w Syringe) 25 ml Q15M PRN IV DECREASED GLUCOSE; Start 04/20/17 at 12:30 Dextrose (D50w Syringe) 50 ml Q15M PRN IV DECREASED GLUCOSE; Start 04/20/17 at 12:30 Glucagon (Glucagen) 1 mg Q15M PRN IM DECREASED GLUCOSE; Start 04/20/17 at 12:30 Glucose (Glutose) 15 gm Q15M PRN BUCCAL DECREASED GLUCOSE; Start 04/20/17 at 12 :30 Diagnostic Test (Pha) (Accu-Chek) 1 ea 02 XX Last administered on 04/21/17 02: 00; Admin Dose 1 EA; Start 04/21/17 at 02:00 Atorvastatin Calcium (Lipitor) 40 mg QHS PO Last administered on 04/25/17 21: 00; Admin Dose 40 MG; Start 04/20/17 at 21:00 Enoxaparin Sodium (Lovenox) 40 mg DAILY SC Last administered on 04/26/17 08:32 ; Admin Dose 40 MG; Start 04/20/17 at 16:48 Isosorbide Mononitrate (Imdur) 30 mg DAILY PO Last administered on 04/26/17 08 :27; Admin Dose 30 MG; Start 04/21/17 at 09:00 Carvedilol 12.5 mg 12.5 mg BID PO Last administered on 04/25/17 21:00; Admin Dose 12.5 MG; Start 04/21/17 at 21:00 Ceftriaxone Sodium (Rocephin) 50 ml @ 100 mls/hr Q24H IVPB Last administered on 04/26/17 08:27; Admin Dose 100 MLS/HR; Start 04/22/17 at 09:00 Prednisone (Prednisone) 10 mg DAILY PO Last administered on 04/26/17 08:26; Admin Dose 10 MG; Start 04/24/17 at 09:00 Clonidine (Catapres) 0.1 mg Q6 PRN PO For Systolic BP >160 Last administered on 04/24/17 03:48; Admin Dose 0.1 MG; Start 04/24/17 at 00:30 Nifedipine (Procardia Xl) 60 mg DAILY PO ; Start 04/27/17 at 09:00 LENO NICE Apr 26, 2017 13:33
--- NOTE | 2017-04-26 13:48 | CONS ---
Date/Time of Note Date/Time of Note DATE: 04/26/17 TIME: 13:47 Consult Date/Type/Reason Admit Date/Time Apr 20, 2017 at 10:12 Initial Consult Date 04/24/17 Type of Consultation: Rheum Ordering Provider: SURENDRA ROSE MD Objective Vital Signs Date Time Temp Pulse Resp B/P Pulse Ox O2 Delivery O2 Flow Rate FiO2 04/26/17 12:01 62 04/26/17 11:49 97.9 18 193/86 100 Intake and Output 04/25/17 04/25/17 04/26/17 15:00 23:00 07:00 Intake Total 1000 ml 500 ml Output Total 1200 ml 800 ml Balance -200 ml -300 ml Exam GENERAL: Alert, oriented, pleasant male in no acute distress. HEENT: NC/AT, extraocular movements intact. Oropharynx is clear. NECK: Supple. HEART: S1, S2. Regular rate and rhythm. LUNGS: Clear to auscultation. Normal air movement. ABDOMEN: Soft, nontender, nondistended. MUSCULOSKELETAL: The left knee with slight tenderness to palpation. Still has a slight effusion, no erythema, no warmth. Range of motion is mostly intact. No other joint synovitis or effusion or warmth. NEUROLOGICAL: Cranial nerves 2-12 grossly intact. Normal mental status. Normal speech. Normal strength. SKIN: No rashes. Results/Medications Result Diagram: 04/26/17 0620 04/26/17 0620 Results 24 hrs Laboratory Tests Test 04/25/17 17:06 04/25/17 20:49 04/26/17 04:18 04/26/17 06:20 Bedside Glucose 235 H 237 H 210 White Blood Count 16.1 #H Red Blood Count 5.05 Hemoglobin 14.5 Hematocrit 45.7 Mean Corpuscular Volume 90.5 Mean Corpuscular Hemoglobin 28.7 L Mean Corpuscular Hemoglobin Concent 31.7 L Red Cell Distribution Width 12.9 Platelet Count 249 # Mean Platelet Volume 11.0 H Neutrophils % 74.2 Lymphocytes % 15.6 Monocytes % 8.3 Eosinophils % 0.9 Basophils % 0.1 Nucleated Red Blood Cells % 0.0 Neutrophils # 11.9 H Lymphocytes # 2.5 Monocytes # 1.3 H Eosinophils # 0.1 Basophils # 0.0 Nucleated Red Blood Cells # 0.0 Sodium Level 140 Potassium Level 4.7 Chloride Level 105 Carbon Dioxide Level 28 Anion Gap 12 Blood Urea Nitrogen 38 #H Creatinine 1.71 H Glucose Level 182 Calcium Level 9.4 Test 04/26/17 08:07 04/26/17 12:19 Bedside Glucose 169 311 H Medications Current Medications Allopurinol (Zyloprim) 100 mg DAILY PO Last administered on 04/26/17 08:27; Admin Dose 100 MG; Start 04/21/17 at 09:00 Clonidine (Catapres) 0.2 mg Q8 PO Last administered on 04/26/17 05:39; Admin Dose 0.2 MG; Start 04/20/17 at 14:00 Furosemide (Lasix) 10 mg DAILY PO Last administered on 04/26/17 08:25; Admin Dose 10 MG; Start 04/21/17 at 09:00 Hydralazine HCl (Apresoline) 100 mg Q8 PO Last administered on 04/26/17 05:39 ; Admin Dose 100 MG; Start 04/20/17 at 14:00 Acetaminophen/ Hydrocodone Bitart ([place] (5/325)) 1 tab PRN PO Last administered on 04/23/17 18:48; Admin Dose 1 TAB; Start 04/20/17 at 12:00 Linagliptin (Tradjenta) 5 mg DAILY PO Last administered on 04/26/17 08:26; Admin Dose 5 MG; Start 04/21/17 at 09:00 Nitroglycerin (Nitroglycerin (Sl Tab) 0.4 Mg) 1 tab PRN SL ; Start 04/20/17 at 12:00 Pantoprazole (Protonix Tab) 40 mg DAILY PO Last administered on 04/26/17 08:26 ; Admin Dose 40 MG; Start 04/20/17 at 12:00 Ondansetron HCl (Zofran Inj) 4 mg Q6 PRN IV NAUSEA AND/OR VOMITING; Start 04/20 at 12:00 Docusate Sodium (Colace) 100 mg BID PO Last administered on 04/26/17 08:26; Admin Dose 100 MG; Start 04/20/17 at 21:00 Acetaminophen (Tylenol Tab) 650 mg Q6 PRN PO PAIN AND OR ELEVATED TEMP Last administered on 04/22/17 21:13; Admin Dose 650 MG; Start 04/20/17 at 12:00 Morphine Sulfate (morphine) 2 mg Q6H PRN IV PAIN LEVEL 6-10; Start 04/20/17 at 12:00 Hydralazine HCl (Apresoline) 20 mg Q6 PRN IV ELEVATED BLOOD PRESSURE Last administered on 04/26/17 12:41; Admin Dose 20 MG; Start 04/20/17 at 12:30 Miscellaneous Information 1 ea NOTE XX ; Start 04/20/17 at 12:30 Glucose (Glutose) 15 gm Q15M PRN PO DECREASED GLUCOSE; Start 04/20/17 at 12:30 Glucose (Glutose) 22.5 gm Q15M PRN PO DECREASED GLUCOSE; Start 04/20/17 at 12: 30 Dextrose (D50w Syringe) 25 ml Q15M PRN IV DECREASED GLUCOSE; Start 04/20/17 at 12:30 Dextrose (D50w Syringe) 50 ml Q15M PRN IV DECREASED GLUCOSE; Start 04/20/17 at 12:30 Glucagon (Glucagen) 1 mg Q15M PRN IM DECREASED GLUCOSE; Start 04/20/17 at 12:30 Glucose (Glutose) 15 gm Q15M PRN BUCCAL DECREASED GLUCOSE; Start 04/20/17 at 12 :30 Diagnostic Test (Pha) (Accu-Chek) 1 ea 02 XX Last administered on 04/21/17 02: 00; Admin Dose 1 EA; Start 04/21/17 at 02:00 Atorvastatin Calcium (Lipitor) 40 mg QHS PO Last administered on 04/25/17 21: 00; Admin Dose 40 MG; Start 04/20/17 at 21:00 Enoxaparin Sodium (Lovenox) 40 mg DAILY SC Last administered on 04/26/17 08:32 ; Admin Dose 40 MG; Start 04/20/17 at 16:48 Isosorbide Mononitrate (Imdur) 30 mg DAILY PO Last administered on 04/26/17 08 :27; Admin Dose 30 MG; Start 04/21/17 at 09:00 Carvedilol 12.5 mg 12.5 mg BID PO Last administered on 04/25/17 21:00; Admin Dose 12.5 MG; Start 04/21/17 at 21:00 Ceftriaxone Sodium (Rocephin) 50 ml @ 100 mls/hr Q24H IVPB Last administered on 04/26/17 08:27; Admin Dose 100 MLS/HR; Start 04/22/17 at 09:00 Prednisone (Prednisone) 10 mg DAILY PO Last administered on 04/26/17 08:26; Admin Dose 10 MG; Start 04/24/17 at 09:00 Clonidine (Catapres) 0.1 mg Q6 PRN PO For Systolic BP >160 Last administered on 04/24/17 03:48; Admin Dose 0.1 MG; Start 04/24/17 at 00:30 Nifedipine (Procardia Xl) 60 mg DAILY PO ; Start 04/27/17 at 09:00 Insulin Glargine (Lantus) 30 unit QHS SC ; Start 04/26/17 at 21:00 Assessment/Plan Chief Complaint/Hosp Course his is a 71-year-old male with gout, hypertension, CAD. Here with Gout flare in knee. Gout: Continue allopurinol 100 mg p.o. q.day. and the colchicine 0.6 mg. q day. He will need to be followed for better gout control in the future. He will probably need his allopurinol raised. This needs to be done once his left knee pain has completely, resolved and at least a week out from his gout flare. He should follow up with a inside polisher, since he is a complicated patient with many medical problems. HTN: still hypertensive, cardiology following. Problems: SUSANNA MOJICA MD Apr 26, 2017 13:48
[2017-04-26] MEDS: NIFEdipine (XL) 60 MG TAB PO SCH (17:13)
--- NOTE | 2017-04-26 17:22 | CONS ---
Date/Time of Note Date/Time of Note DATE: 04/26/17 TIME: 17:19 Assessment/Plan Assessment/Plan Additional Assessment/Plan 1. acute kidney injury due to prerenal azotemia 2. Chest pain 3. h/o CAD s/p CABG 4. Hypertension- not optimally controlled 5. hyperlipidemia 6. Diabetes melitus 7. 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 Left knee pain and swelling Plan: continue current Chest pain work up, s/p Orthopedic evlatuiona for left knee pain and swelling - stopped lisinopril on 04/21/17 - Today Cr improved to 1.52 yesterday - again bumped to 1.7 today pt is on lisinopril 10mg po daily, will monitor for Cr continue hydrlazine, and Clonidine for bP control will use IV hydrlaszine prn , Procardia XL 60mg po daily added today, if continues to have High BP - will increase it to 60mg BID IV abx ceftriaxone will follow up Consultation Date/Type/Reason Admit Date/Time Apr 20, 2017 at 10:12 Initial Consult Date 04/20/17 Type of Consultation: NEPHROLOGY Referring Provider: SURENDRA ROSE MD 24 HR Interval Summary Free Text/Dictation BP very high, no chest pain, Cr bumped to 1.7 Exam/Review of Systems Vital Signs Vitals Vital Signs Date Time Temp Pulse Resp B/P Pulse Ox O2 Delivery O2 Flow Rate FiO2 04/26/17 16:10 98.6 77 18 216/97 97 Intake and Output 04/25/17 04/25/17 04/26/17 15:00 23:00 07:00 Intake Total 1000 ml 500 ml Output Total 1200 ml 800 ml Balance -200 ml -300 ml Exam Constitutional: alert Psych: no complaints Head: normocephalic ENMT: nl external ears & nose Neck: non-tender, supple Respiratory: clear to auscultation, diminished breath sounds, normal air movement Cardiovascular: nl pulses, regular rate and rhythm Gastrointestinal: non-tender, soft Musculoskeletal: nl extremities to inspection 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, nl mental status, nl speech, nl strength Skin: nl turgor Lymph: nl lymph nodes Results Result Diagram: 04/26/17 0620 04/26/17 0620 Results 24 hrs Laboratory Tests Test 04/25/17 20:49 04/26/17 04:18 04/26/17 06:20 04/26/17 08:07 Bedside Glucose 237 H 210 169 White Blood Count 16.1 #H Red Blood Count 5.05 Hemoglobin 14.5 Hematocrit 45.7 Mean Corpuscular Volume 90.5 Mean Corpuscular Hemoglobin 28.7 L Mean Corpuscular Hemoglobin Concent 31.7 L Red Cell Distribution Width 12.9 Platelet Count 249 # Mean Platelet Volume 11.0 H Neutrophils % 74.2 Lymphocytes % 15.6 Monocytes % 8.3 Eosinophils % 0.9 Basophils % 0.1 Nucleated Red Blood Cells % 0.0 Neutrophils # 11.9 H Lymphocytes # 2.5 Monocytes # 1.3 H Eosinophils # 0.1 Basophils # 0.0 Nucleated Red Blood Cells # 0.0 Sodium Level 140 Potassium Level 4.7 Chloride Level 105 Carbon Dioxide Level 28 Anion Gap 12 Blood Urea Nitrogen 38 #H Creatinine 1.71 H Glucose Level 182 Calcium Level 9.4 Test 04/26/17 12:19 04/26/17 17:10 Bedside Glucose 311 H 197 Medications Medications Current Medications Allopurinol (Zyloprim) 100 mg DAILY PO Last administered on 04/26/17 08:27; Admin Dose 100 MG; Start 04/21/17 at 09:00 Clonidine (Catapres) 0.2 mg Q8 PO Last administered on 04/26/17 14:00; Admin Dose 0.2 MG; Start 04/20/17 at 14:00 Furosemide (Lasix) 10 mg DAILY PO Last administered on 04/26/17 08:25; Admin Dose 10 MG; Start 04/21/17 at 09:00 Hydralazine HCl (Apresoline) 100 mg Q8 PO Last administered on 04/26/17 14:00 ; Admin Dose 100 MG; Start 04/20/17 at 14:00 Acetaminophen/ Hydrocodone Bitart ([place] (5/325)) 1 tab PRN PO Last administered on 04/23/17 18:48; Admin Dose 1 TAB; Start 04/20/17 at 12:00 Linagliptin (Tradjenta) 5 mg DAILY PO Last administered on 04/26/17 08:26; Admin Dose 5 MG; Start 04/21/17 at 09:00 Nitroglycerin (Nitroglycerin (Sl Tab) 0.4 Mg) 1 tab PRN SL ; Start 04/20/17 at 12:00 Pantoprazole (Protonix Tab) 40 mg DAILY PO Last administered on 04/26/17 08:26 ; Admin Dose 40 MG; Start 04/20/17 at 12:00 Ondansetron HCl (Zofran Inj) 4 mg Q6 PRN IV NAUSEA AND/OR VOMITING; Start 04/20 at 12:00 Docusate Sodium (Colace) 100 mg BID PO Last administered on 04/26/17 08:26; Admin Dose 100 MG; Start 04/20/17 at 21:00 Acetaminophen (Tylenol Tab) 650 mg Q6 PRN PO PAIN AND OR ELEVATED TEMP Last administered on 04/22/17 21:13; Admin Dose 650 MG; Start 04/20/17 at 12:00 Morphine Sulfate (morphine) 2 mg Q6H PRN IV PAIN LEVEL 6-10; Start 04/20/17 at 12:00 Hydralazine HCl (Apresoline) 20 mg Q6 PRN IV ELEVATED BLOOD PRESSURE Last administered on 04/26/17 12:41; Admin Dose 20 MG; Start 04/20/17 at 12:30 Miscellaneous Information 1 ea NOTE XX ; Start 04/20/17 at 12:30 Glucose (Glutose) 15 gm Q15M PRN PO DECREASED GLUCOSE; Start 04/20/17 at 12:30 Glucose (Glutose) 22.5 gm Q15M PRN PO DECREASED GLUCOSE; Start 04/20/17 at 12: 30 Dextrose (D50w Syringe) 25 ml Q15M PRN IV DECREASED GLUCOSE; Start 04/20/17 at 12:30 Dextrose (D50w Syringe) 50 ml Q15M PRN IV DECREASED GLUCOSE; Start 04/20/17 at 12:30 Glucagon (Glucagen) 1 mg Q15M PRN IM DECREASED GLUCOSE; Start 04/20/17 at 12:30 Glucose (Glutose) 15 gm Q15M PRN BUCCAL DECREASED GLUCOSE; Start 04/20/17 at 12 :30 Diagnostic Test (Pha) (Accu-Chek) 1 ea 02 XX Last administered on 04/21/17 02: 00; Admin Dose 1 EA; Start 04/21/17 at 02:00 Atorvastatin Calcium (Lipitor) 40 mg QHS PO Last administered on 04/25/17 21: 00; Admin Dose 40 MG; Start 04/20/17 at 21:00 Enoxaparin Sodium (Lovenox) 40 mg DAILY SC Last administered on 04/26/17 08:32 ; Admin Dose 40 MG; Start 04/20/17 at 16:48 Isosorbide Mononitrate (Imdur) 30 mg DAILY PO Last administered on 04/26/17 08 :27; Admin Dose 30 MG; Start 04/21/17 at 09:00 Carvedilol 12.5 mg 12.5 mg BID PO Last administered on 04/25/17 21:00; Admin Dose 12.5 MG; Start 04/21/17 at 21:00 Ceftriaxone Sodium (Rocephin) 50 ml @ 100 mls/hr Q24H IVPB Last administered on 04/26/17 08:27; Admin Dose 100 MLS/HR; Start 04/22/17 at 09:00 Prednisone (Prednisone) 10 mg DAILY PO Last administered on 04/26/17 08:26; Admin Dose 10 MG; Start 04/24/17 at 09:00 Clonidine (Catapres) 0.1 mg Q6 PRN PO For Systolic BP >160 Last administered on 04/24/17 03:48; Admin Dose 0.1 MG; Start 04/24/17 at 00:30 Insulin Glargine (Lantus) 30 unit QHS SC ; Start 04/26/17 at 21:00 Nifedipine (Procardia Xl) 60 mg DAILY PO Last administered on 04/26/17 17:13; Admin Dose 60 MG; Start 04/26/17 at 17:00 LORENZA GIBSON MD Apr 26, 2017 17:22
[2017-04-26] MEDS: ATORVASTATIN 40 MG TAB PO SCH (20:44)
[2017-04-26] MEDS: INSULIN GLARGINE [LANtus] 3 ML PEN SC SCH (20:49)
[2017-04-27] VITALS (12 sets, daily range): BP systolic 105–160; BP diastolic 54–86; PULSE 30–63; RESP 18–19
[2017-04-27] MEDS: ACCU-CHEK XX SCH (02:01)
[2017-04-27 08:13] LABS: ABNORMAL IP MESSAGE 1; BASOPHIL # 0.1 10^3/ul (0.0-0.1); BASOPHILS % 0.4 % (0.0-2.0); EOSINOPHILS # 0.3 10^3/ul (0.0-0.5); EOSINOPHILS % 2.5 % (0.0-7.0); HEMATOCRIT 40.7 % (42.0-52.0); LYMPHOCYTES # 3.1 10^3/ul (0.8-2.9); LYMPHOCYTES % 22.4 % (15.0-51.0); MEAN CORPUSCULAR HEMOGLOBIN 28.8 pg (29.0-33.0); MEAN CORPUSCULAR HGB CONC 31.9 g/dl (32.0-37.0); MONOCYTE # 1.7 10^3/ul (0.3-0.9); NEUTROPHIL # 8.5 10^3/ul (1.6-7.5); NEUTROPHILS % 61.2 % (39.0-77.0); PLATELET COUNT 236 10^3/UL (140-415); POSITIVE DIFF @See below; RED BLOOD COUNT 4.52 10^6/ul (4.70-6.10); RED CELL DISTRIBUTION WIDTH 12.8 % (11.5-14.5); WHITE BLOOD COUNT 13.9 10^3/ul (4.8-10.8)
[2017-04-27 08:28] LABS: CALCIUM 9.1 mg/dl (8.4-10.2); CREATININE 1.45 mg/dl (0.61-1.24); POTASSIUM 4.4 mmol/L (3.5-5.1)
[2017-04-27] MEDS: DOCUSATE SODIUM 100 MG CAP PO SCH ×2 (08:28→20:07)
[2017-04-27] MEDS: PANTOPRAZOLE (EC) 40 MG TAB PO SCH (08:29)
[2017-04-27] MEDS: ALLOPURINOL 100 MG TAB PO SCH (08:30)
[2017-04-27] MEDS: LINAGLIPTIN 5 MG TABLET PO SCH (08:30)
[2017-04-27] MEDS: ISOSORBIDE MONONITRATE(SR)30 MG TAB PO SCH (08:30)
[2017-04-27] MEDS: NIFEdipine (XL) 60 MG TAB PO SCH (08:31)
[2017-04-27] MEDS: predniSONE 10 MG TAB PO SCH (08:31)
[2017-04-27] MEDS: FUROSEMIDE 20 MG TAB PO SCH (08:31)
[2017-04-27] MEDS: INSULIN ASPART [NOVOLOG] 3 ML PEN SC SCH ×7 (08:32→20:17)
[2017-04-27] MEDS: ENOXAPARIN 40 MG/0.4 ML SYG SC SCH (08:35)
--- NOTE | 2017-04-27 08:44 | CONS ---
Date/Time of Note Date/Time of Note DATE: 04/27/17 TIME: 08:42 Assessment/Plan Assessment/Plan Additional Assessment/Plan 1. Chest pain. Assess for acute coronary syndrome with negative troponins x 3 - small mostly irreversible changes on Shanda - MED Rx advised ST[employer] CP now. 2. Atrial flutter with some slow ventricular response at times down to the 40s on beta raffi.-now improved on lower dose of BB - better, no indication for pacer now. Rate controlled. RATE BETTER NOW - PT FEELS well. RATE CONTROLLED. 3. Abnormal electrocardiogram with nonspecific ST and T-wave abnormalities - A. FL noted - abatable as outpt if pt agrees. 4. Coronary artery disease, status post coronary artery bypass graft surgery 2012- med rx advised. 5. Dyslipidemia. 6. Gout. 7. HTN - on high side - add Rx now. BETTER - con't to increase Procardia dose. Consultation Date/Type/Reason Admit Date/Time Apr 20, 2017 at 10:12 Initial Consult Date 04/20/17 Type of Consultation: NEPHROLOGY Referring Provider: SURENDRA ROSE MD 24 HR Interval Summary Free Text/Dictation No acute events - BP in better range - con't to increase dose of Procardia now, . ROS: No fever, no chills, no nausea, no vomiting, no diarrhea/constipation No recent weight changes No chest pain, no PND, no orthopnea No dizziness, blurred vision No thirst, no heat or cold intolerance Exam/Review of Systems Vital Signs Vitals Vital Signs Date Time Temp Pulse Resp B/P Pulse Ox O2 Delivery O2 Flow Rate FiO2 04/27/17 08:23 43 04/27/17 07:43 97.9 18 155/76 96 Intake and Output 04/26/17 04/26/17 04/27/17 15:00 23:00 07:00 Intake Total 200 ml Balance 200 ml Exam General: WN/WD/NAD, AOx 3 HEENT: Unicetric/atraumatic/EOMI (follows commands) NECK: JVD elevated, no thyromegaly Lymph: no lymphadenopathy HEART: Irregular with no S3, II/ systolic murmur at apex LUNGS: Coarse sounds ABD: soft, NT, ND, +BS : Intact Neuro: non focal SKIN: chronic changes EXT: trace edema Results Result Diagram: 04/27/17 0625 04/26/17 0620 Results 24 hrs Laboratory Tests Test 04/26/17 12:19 04/26/17 17:10 04/26/17 20:43 04/27/17 06:25 Bedside Glucose 311 H 197 157 White Blood Count 13.9 H Red Blood Count 4.52 L Hemoglobin 13.0 L Hematocrit 40.7 L Mean Corpuscular Volume 90.0 Mean Corpuscular Hemoglobin 28.8 L Mean Corpuscular Hemoglobin Concent 31.9 L Red Cell Distribution Width 12.8 Platelet Count 236 Mean Platelet Volume 11.0 H Neutrophils % 61.2 Lymphocytes % 22.4 Monocytes % 12.0 H Eosinophils % 2.5 Basophils % 0.4 Nucleated Red Blood Cells % 0.0 Neutrophils # 8.5 H Lymphocytes # 3.1 H Monocytes # 1.7 H Eosinophils # 0.3 Basophils # 0.1 Nucleated Red Blood Cells # 0.0 Medications Medications Current Medications Allopurinol (Zyloprim) 100 mg DAILY PO Last administered on 04/27/17 08:30; Admin Dose 100 MG; Start 04/21/17 at 09:00 Clonidine (Catapres) 0.2 mg Q8 PO Last administered on 04/27/17 05:53; Admin Dose 0.2 MG; Start 04/20/17 at 14:00 Furosemide (Lasix) 10 mg DAILY PO Last administered on 04/27/17 08:31; Admin Dose 10 MG; Start 04/21/17 at 09:00 Hydralazine HCl (Apresoline) 100 mg Q8 PO Last administered on 04/27/17 05:54 ; Admin Dose 100 MG; Start 04/20/17 at 14:00 Acetaminophen/ Hydrocodone Bitart ([place] (5/325)) 1 tab PRN PO Last administered on 04/23/17 18:48; Admin Dose 1 TAB; Start 04/20/17 at 12:00 Linagliptin (Tradjenta) 5 mg DAILY PO Last administered on 04/27/17 08:30; Admin Dose 5 MG; Start 04/21/17 at 09:00 Nitroglycerin (Nitroglycerin (Sl Tab) 0.4 Mg) 1 tab PRN SL ; Start 04/20/17 at 12:00 Pantoprazole (Protonix Tab) 40 mg DAILY PO Last administered on 04/27/17 08:29 ; Admin Dose 40 MG; Start 04/20/17 at 12:00 Ondansetron HCl (Zofran Inj) 4 mg Q6 PRN IV NAUSEA AND/OR VOMITING; Start 04/20 at 12:00 Docusate Sodium (Colace) 100 mg BID PO Last administered on 04/27/17 08:28; Admin Dose 100 MG; Start 04/20/17 at 21:00 Acetaminophen (Tylenol Tab) 650 mg Q6 PRN PO PAIN AND OR ELEVATED TEMP Last administered on 04/22/17 21:13; Admin Dose 650 MG; Start 04/20/17 at 12:00 Morphine Sulfate (morphine) 2 mg Q6H PRN IV PAIN LEVEL 6-10; Start 04/20/17 at 12:00 Hydralazine HCl (Apresoline) 20 mg Q6 PRN IV ELEVATED BLOOD PRESSURE Last administered on 04/26/17 12:41; Admin Dose 20 MG; Start 04/20/17 at 12:30 Miscellaneous Information 1 ea NOTE XX ; Start 04/20/17 at 12:30 Glucose (Glutose) 15 gm Q15M PRN PO DECREASED GLUCOSE; Start 04/20/17 at 12:30 Glucose (Glutose) 22.5 gm Q15M PRN PO DECREASED GLUCOSE; Start 04/20/17 at 12: 30 Dextrose (D50w Syringe) 25 ml Q15M PRN IV DECREASED GLUCOSE; Start 04/20/17 at 12:30 Dextrose (D50w Syringe) 50 ml Q15M PRN IV DECREASED GLUCOSE; Start 04/20/17 at 12:30 Glucagon (Glucagen) 1 mg Q15M PRN IM DECREASED GLUCOSE; Start 04/20/17 at 12:30 Glucose (Glutose) 15 gm Q15M PRN BUCCAL DECREASED GLUCOSE; Start 04/20/17 at 12 :30 Diagnostic Test (Pha) (Accu-Chek) 1 ea 02 XX Last administered on 04/27/17 02: 01; Admin Dose 1 EA; Start 04/21/17 at 02:00 Atorvastatin Calcium (Lipitor) 40 mg QHS PO Last administered on 04/26/17 20: 44; Admin Dose 40 MG; Start 04/20/17 at 21:00 Enoxaparin Sodium (Lovenox) 40 mg DAILY SC Last administered on 04/27/17 08:35 ; Admin Dose 40 MG; Start 04/20/17 at 16:48 Isosorbide Mononitrate (Imdur) 30 mg DAILY PO Last administered on 04/27/17 08 :30; Admin Dose 30 MG; Start 04/21/17 at 09:00 Carvedilol 12.5 mg 12.5 mg BID PO Last administered on 04/26/17 20:44; Admin Dose 12.5 MG; Start 04/21/17 at 21:00 Ceftriaxone Sodium (Rocephin) 50 ml @ 100 mls/hr Q24H IVPB Last administered on 04/26/17 08:27; Admin Dose 100 MLS/HR; Start 04/22/17 at 09:00 Prednisone (Prednisone) 10 mg DAILY PO Last administered on 04/26/17 08:26; Admin Dose 10 MG; Start 04/24/17 at 09:00 Clonidine (Catapres) 0.1 mg Q6 PRN PO For Systolic BP >160 Last administered on 04/24/17 03:48; Admin Dose 0.1 MG; Start 04/24/17 at 00:30 Insulin Glargine (Lantus) 30 unit QHS SC Last administered on 04/26/17 20:49; Admin Dose 30 UNIT; Start 04/26/17 at 21:00 Nifedipine (Procardia Xl) 60 mg DAILY PO Last administered on 04/27/17 08:31; Admin Dose 60 MG; Start 04/26/17 at 17:00 TK AVILA MD Apr 27, 2017 08:44
[2017-04-27] MEDS ORDERED: NIFEdipine (XL) 90 MG TAB PO SCH (09:00)
[2017-04-27] MEDS ORDERED: NIFEdipine (XL) 60 MG TAB PO SCH (09:00)
[2017-04-27] MEDS: CEFTRIAXONE 1 GM/50 ML (PMX) 50 ML IVPB SCH (09:43)
[2017-04-27] MEDS ORDERED: NIFEdipine (XL) 30 MG TAB PO SCH (10:00)
[2017-04-27] MEDS: COLCHICINE 0.6 MG TAB PO SCH (12:00)
--- NOTE | 2017-04-27 14:11 | CONS ---
Date/Time of Note Date/Time of Note DATE: 04/27/17 TIME: 14:08 Assessment/Plan Assessment/Plan Additional Assessment/Plan 1. acute kidney injury due to prerenal azotemia 2. Chest pain 3. h/o CAD s/p CABG 4. Hypertension- not optimally controlled 5. hyperlipidemia 6. Diabetes melitus 7. 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 Left knee pain and swelling Plan: continue current Chest pain work up, s/p Orthopedic evlatuiona for left knee pain and swelling - stopped lisinopril on 04/21/17 - Today Cr improved to 1.45 today continue hydrlazine, and Clonidine for bP control on Procardia XL - increased to 90mg, HR in 40s IV abx ceftriaxone will follow up Consultation Date/Type/Reason Admit Date/Time Apr 20, 2017 at 10:12 Initial Consult Date 04/20/17 Type of Consultation: NEPHROLOGY Referring Provider: SURENDRA ROSE MD 24 HR Interval Summary Free Text/Dictation Bp controlled with procardia XL, HR in 40s Exam/Review of Systems Vital Signs Vitals Vital Signs Date Time Temp Pulse Resp B/P Pulse Ox O2 Delivery O2 Flow Rate FiO2 04/27/17 12:09 40 04/27/17 11:37 97.9 18 105/54 95 Intake and Output 04/26/17 04/26/17 04/27/17 15:00 23:00 07:00 Intake Total 200 ml Balance 200 ml Exam Constitutional: alert Psych: no complaints Head: normocephalic ENMT: nl external ears & nose Neck: non-tender, supple Respiratory: clear to auscultation, normal air movement Cardiovascular: nl pulses, regular rate and rhythm Gastrointestinal: non-tender, 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 Results Result Diagram: 04/27/17 0625 04/27/17 0625 Results 24 hrs Laboratory Tests Test 04/26/17 17:10 04/26/17 20:43 04/27/17 06:25 04/27/17 08:28 Bedside Glucose 197 157 180 White Blood Count 13.9 H Red Blood Count 4.52 L Hemoglobin 13.0 L Hematocrit 40.7 L Mean Corpuscular Volume 90.0 Mean Corpuscular Hemoglobin 28.8 L Mean Corpuscular Hemoglobin Concent 31.9 L Red Cell Distribution Width 12.8 Platelet Count 236 Mean Platelet Volume 11.0 H Neutrophils % 61.2 Lymphocytes % 22.4 Monocytes % 12.0 H Eosinophils % 2.5 Basophils % 0.4 Nucleated Red Blood Cells % 0.0 Neutrophils # 8.5 H Lymphocytes # 3.1 H Monocytes # 1.7 H Eosinophils # 0.3 Basophils # 0.1 Nucleated Red Blood Cells # 0.0 Sodium Level 136 Potassium Level 4.4 Chloride Level 104 Carbon Dioxide Level 27 Anion Gap 9 Blood Urea Nitrogen 37 H Creatinine 1.45 H Glucose Level 218 Calcium Level 9.1 Test 04/27/17 12:26 Bedside Glucose 227 H Medications Medications Current Medications Allopurinol (Zyloprim) 100 mg DAILY PO Last administered on 04/27/17 08:30; Admin Dose 100 MG; Start 04/21/17 at 09:00 Clonidine (Catapres) 0.2 mg Q8 PO Last administered on 04/27/17 05:53; Admin Dose 0.2 MG; Start 04/20/17 at 14:00 Furosemide (Lasix) 10 mg DAILY PO Last administered on 04/27/17 08:31; Admin Dose 10 MG; Start 04/21/17 at 09:00 Hydralazine HCl (Apresoline) 100 mg Q8 PO Last administered on 04/27/17 05:54 ; Admin Dose 100 MG; Start 04/20/17 at 14:00 Acetaminophen/ Hydrocodone Bitart ([place] (5/325)) 1 tab PRN PO Last administered on 04/23/17 18:48; Admin Dose 1 TAB; Start 04/20/17 at 12:00 Linagliptin (Tradjenta) 5 mg DAILY PO Last administered on 04/27/17 08:30; Admin Dose 5 MG; Start 04/21/17 at 09:00 Nitroglycerin (Nitroglycerin (Sl Tab) 0.4 Mg) 1 tab PRN SL ; Start 04/20/17 at 12:00 Pantoprazole (Protonix Tab) 40 mg DAILY PO Last administered on 04/27/17 08:29 ; Admin Dose 40 MG; Start 04/20/17 at 12:00 Ondansetron HCl (Zofran Inj) 4 mg Q6 PRN IV NAUSEA AND/OR VOMITING; Start 04/20 at 12:00 Docusate Sodium (Colace) 100 mg BID PO Last administered on 04/27/17 08:28; Admin Dose 100 MG; Start 04/20/17 at 21:00 Acetaminophen (Tylenol Tab) 650 mg Q6 PRN PO PAIN AND OR ELEVATED TEMP Last administered on 04/22/17 21:13; Admin Dose 650 MG; Start 04/20/17 at 12:00 Morphine Sulfate (morphine) 2 mg Q6H PRN IV PAIN LEVEL 6-10; Start 04/20/17 at 12:00 Hydralazine HCl (Apresoline) 20 mg Q6 PRN IV ELEVATED BLOOD PRESSURE Last administered on 04/26/17 12:41; Admin Dose 20 MG; Start 04/20/17 at 12:30 Miscellaneous Information 1 ea NOTE XX ; Start 04/20/17 at 12:30 Glucose (Glutose) 15 gm Q15M PRN PO DECREASED GLUCOSE; Start 04/20/17 at 12:30 Glucose (Glutose) 22.5 gm Q15M PRN PO DECREASED GLUCOSE; Start 04/20/17 at 12: 30 Dextrose (D50w Syringe) 25 ml Q15M PRN IV DECREASED GLUCOSE; Start 04/20/17 at 12:30 Dextrose (D50w Syringe) 50 ml Q15M PRN IV DECREASED GLUCOSE; Start 04/20/17 at 12:30 Glucagon (Glucagen) 1 mg Q15M PRN IM DECREASED GLUCOSE; Start 04/20/17 at 12:30 Glucose (Glutose) 15 gm Q15M PRN BUCCAL DECREASED GLUCOSE; Start 04/20/17 at 12 :30 Diagnostic Test (Pha) (Accu-Chek) 1 ea 02 XX Last administered on 04/27/17 02: 01; Admin Dose 1 EA; Start 04/21/17 at 02:00 Atorvastatin Calcium (Lipitor) 40 mg QHS PO Last administered on 04/26/17 20: 44; Admin Dose 40 MG; Start 04/20/17 at 21:00 Enoxaparin Sodium (Lovenox) 40 mg DAILY SC Last administered on 04/27/17 08:35 ; Admin Dose 40 MG; Start 04/20/17 at 16:48 Isosorbide Mononitrate (Imdur) 30 mg DAILY PO Last administered on 04/27/17 08 :30; Admin Dose 30 MG; Start 04/21/17 at 09:00 Carvedilol 12.5 mg 12.5 mg BID PO Last administered on 04/26/17 20:44; Admin Dose 12.5 MG; Start 04/21/17 at 21:00 Ceftriaxone Sodium (Rocephin) 50 ml @ 100 mls/hr Q24H IVPB Last administered on 04/27/17 09:43; Admin Dose 100 MLS/HR; Start 04/22/17 at 09:00 Prednisone (Prednisone) 10 mg DAILY PO Last administered on 04/26/17 08:26; Admin Dose 10 MG; Start 04/24/17 at 09:00 Clonidine (Catapres) 0.1 mg Q6 PRN PO For Systolic BP >160 Last administered on 04/24/17 03:48; Admin Dose 0.1 MG; Start 04/24/17 at 00:30 Insulin Glargine (Lantus) 30 unit QHS SC Last administered on 04/26/17 20:49; Admin Dose 30 UNIT; Start 04/26/17 at 21:00 Nifedipine (Procardia Xl) 90 mg DAILY PO ; Start 04/28/17 at 09:00 Nifedipine (Procardia Xl) 30 mg ONCE PO Last administered on 04/27/17 10:00; Admin Dose 30 MG; Start 04/27/17 at 10:00; Stop 04/27/17 at 20:00 LORENZA GIBSON MD Apr 27, 2017 14:11
--- NOTE | 2017-04-27 16:58 | CONS ---
Date/Time of Note Date/Time of Note DATE: 04/27/17 TIME: 16:42 Assessment/Plan Assessment/Plan Chief Complaint/Hosp Course - Chest pain. Serial troponins x3 negative. Small to moderate size predominantly nonreversible perfusion defect in the inferior wall noted on Lexiscan. - CAD s/p CABG in 2012 - Atrial flutter - Accelerated HTN - JOSE - T2DM - Hgb A1c 8.2% - HLD - Left knee gout flare - Fever on 04/22/2017 likely related to gout, resolved - Recurrent leukocytosis, likely reactive, and partly due to steroid margination Recommendations: - DC ceftriaxone (04/22/2017-) as there are no e/o infection. Monitor closely off antibiotic. - Follow up procalcitonin 04/24/2017 (in process) Management d/w pt, his , and Dr. Castle Problems: Consultation Date/Type/Reason Admit Date/Time Apr 20, 2017 at 10:12 Initial Consult Date 04/24/17 Type of Consultation: Infectious Disease Referring Provider: SURENDRA ROSE MD 24 HR Interval Summary Free Text/Dictation Pt denies any pain, SOB, n/v/d, dysuria. Asking if he can go home. Exam/Review of Systems Vital Signs Vitals Vital Signs Date Time Temp Pulse Resp B/P Pulse Ox O2 Delivery O2 Flow Rate FiO2 04/27/17 16:01 60 04/27/17 15:49 97.7 19 113/55 99 Intake and Output 04/26/17 04/26/17 04/27/17 15:00 23:00 07:00 Intake Total 200 ml Balance 200 ml Exam Constitutional: alert, obese, oriented, well developed Head: atraumatic, normocephalic Eyes: nl sclera Neck: supple Respiratory: clear to auscultation, normal air movement Cardiovascular: nl pulses, regular rate and rhythm Gastrointestinal: non-tender, soft Musculoskeletal: nl gait and stance Extremities: normal pulses, No cyanosis, No edema Neurological: nl mental status, nl speech Skin: nl turgor, No rash or lesions Results Result Diagram: 04/27/17 0625 04/27/17 0625 Results 24 hrs Laboratory Tests Test 04/26/17 17:10 04/26/17 20:43 04/27/17 06:25 04/27/17 08:28 Bedside Glucose 197 157 180 White Blood Count 13.9 H Red Blood Count 4.52 L Hemoglobin 13.0 L Hematocrit 40.7 L Mean Corpuscular Volume 90.0 Mean Corpuscular Hemoglobin 28.8 L Mean Corpuscular Hemoglobin Concent 31.9 L Red Cell Distribution Width 12.8 Platelet Count 236 Mean Platelet Volume 11.0 H Neutrophils % 61.2 Lymphocytes % 22.4 Monocytes % 12.0 H Eosinophils % 2.5 Basophils % 0.4 Nucleated Red Blood Cells % 0.0 Neutrophils # 8.5 H Lymphocytes # 3.1 H Monocytes # 1.7 H Eosinophils # 0.3 Basophils # 0.1 Nucleated Red Blood Cells # 0.0 Sodium Level 136 Potassium Level 4.4 Chloride Level 104 Carbon Dioxide Level 27 Anion Gap 9 Blood Urea Nitrogen 37 H Creatinine 1.45 H Glucose Level 218 Calcium Level 9.1 Test 04/27/17 12:26 Bedside Glucose 227 H Medications Medications Current Medications Allopurinol (Zyloprim) 100 mg DAILY PO Last administered on 04/27/17 08:30; Admin Dose 100 MG; Start 04/21/17 at 09:00 Clonidine (Catapres) 0.2 mg Q8 PO Last administered on 04/27/17 14:41; Admin Dose 0.2 MG; Start 04/20/17 at 14:00 Furosemide (Lasix) 10 mg DAILY PO Last administered on 04/27/17 08:31; Admin Dose 10 MG; Start 04/21/17 at 09:00 Hydralazine HCl (Apresoline) 100 mg Q8 PO Last administered on 04/27/17 14:40 ; Admin Dose 100 MG; Start 04/20/17 at 14:00 Acetaminophen/ Hydrocodone Bitart ([place] (5/325)) 1 tab PRN PO Last administered on 04/23/17 18:48; Admin Dose 1 TAB; Start 04/20/17 at 12:00 Linagliptin (Tradjenta) 5 mg DAILY PO Last administered on 04/27/17 08:30; Admin Dose 5 MG; Start 04/21/17 at 09:00 Nitroglycerin (Nitroglycerin (Sl Tab) 0.4 Mg) 1 tab PRN SL ; Start 04/20/17 at 12:00 Pantoprazole (Protonix Tab) 40 mg DAILY PO Last administered on 04/27/17 08:29 ; Admin Dose 40 MG; Start 04/20/17 at 12:00 Ondansetron HCl (Zofran Inj) 4 mg Q6 PRN IV NAUSEA AND/OR VOMITING; Start 04/20 at 12:00 Docusate Sodium (Colace) 100 mg BID PO Last administered on 04/27/17 08:28; Admin Dose 100 MG; Start 04/20/17 at 21:00 Acetaminophen (Tylenol Tab) 650 mg Q6 PRN PO PAIN AND OR ELEVATED TEMP Last administered on 04/22/17 21:13; Admin Dose 650 MG; Start 04/20/17 at 12:00 Morphine Sulfate (morphine) 2 mg Q6H PRN IV PAIN LEVEL 6-10; Start 04/20/17 at 12:00 Hydralazine HCl (Apresoline) 20 mg Q6 PRN IV ELEVATED BLOOD PRESSURE Last administered on 04/26/17 12:41; Admin Dose 20 MG; Start 04/20/17 at 12:30 Miscellaneous Information 1 ea NOTE XX ; Start 04/20/17 at 12:30 Glucose (Glutose) 15 gm Q15M PRN PO DECREASED GLUCOSE; Start 04/20/17 at 12:30 Glucose (Glutose) 22.5 gm Q15M PRN PO DECREASED GLUCOSE; Start 04/20/17 at 12: 30 Dextrose (D50w Syringe) 25 ml Q15M PRN IV DECREASED GLUCOSE; Start 04/20/17 at 12:30 Dextrose (D50w Syringe) 50 ml Q15M PRN IV DECREASED GLUCOSE; Start 04/20/17 at 12:30 Glucagon (Glucagen) 1 mg Q15M PRN IM DECREASED GLUCOSE; Start 04/20/17 at 12:30 Glucose (Glutose) 15 gm Q15M PRN BUCCAL DECREASED GLUCOSE; Start 04/20/17 at 12 :30 Diagnostic Test (Pha) (Accu-Chek) 1 ea 02 XX Last administered on 04/27/17 02: 01; Admin Dose 1 EA; Start 04/21/17 at 02:00 Atorvastatin Calcium (Lipitor) 40 mg QHS PO Last administered on 04/26/17 20: 44; Admin Dose 40 MG; Start 04/20/17 at 21:00 Enoxaparin Sodium (Lovenox) 40 mg DAILY SC Last administered on 04/27/17 08:35 ; Admin Dose 40 MG; Start 04/20/17 at 16:48 Isosorbide Mononitrate (Imdur) 30 mg DAILY PO Last administered on 04/27/17 08 :30; Admin Dose 30 MG; Start 04/21/17 at 09:00 Carvedilol 12.5 mg 12.5 mg BID PO Last administered on 04/26/17 20:44; Admin Dose 12.5 MG; Start 04/21/17 at 21:00 Ceftriaxone Sodium (Rocephin) 50 ml @ 100 mls/hr Q24H IVPB Last administered on 04/27/17 09:43; Admin Dose 100 MLS/HR; Start 04/22/17 at 09:00 Prednisone (Prednisone) 10 mg DAILY PO Last administered on 04/26/17 08:26; Admin Dose 10 MG; Start 04/24/17 at 09:00 Clonidine (Catapres) 0.1 mg Q6 PRN PO For Systolic BP >160 Last administered on 04/24/17 03:48; Admin Dose 0.1 MG; Start 04/24/17 at 00:30 Insulin Glargine (Lantus) 30 unit QHS SC Last administered on 04/26/17 20:49; Admin Dose 30 UNIT; Start 04/26/17 at 21:00 Nifedipine (Procardia Xl) 90 mg DAILY PO ; Start 04/28/17 at 09:00 Nifedipine (Procardia Xl) 30 mg ONCE PO Last administered on 04/27/17 10:00; Admin Dose 30 MG; Start 04/27/17 at 10:00; Stop 04/27/17 at 20:00 ELÍAS ALDRICH NP Apr 27, 2017 16:53
--- NOTE | 2017-04-27 18:58 | PN ---
Date/Time of Note Date/Time of Note DATE: 04/27/17 TIME: 18:56 Assessment/Plan VTE Prophylaxis VTE Prophylaxis Intervention: SCD's Lines/Catheters IV Catheter Type (from Nrsg): Saline Lock Assessment/Plan Chief Complaint/Hosp Course Blood pressure is better controlled however patient heart rate goes into 30s and 40s bradycardia,beta blockers on hold continue to monitor on telemetry floor Assessment/Plan - HTN, BP medication is optimized by cardiology and on Dr. Montaño is following. - Chest pain. negative troponins x3, small mostly irreversible changes on Shanda. - Atrial flutter with some slow ventricular response at times down to the 40s on beta raffi. - Coronary artery disease, status post coronary artery bypass graft surgery 2012 - med rx advised. - Dyslipidemia. - Gout. Status post left knee steroid injection by Dr. Morales, orthopedic surgery - DM. Continue Lantus and pre-meal NovoLog. Further recommendations based on clinical course. Plan of care discussed with Dr. Naranjo. Problems: Exam/Review of Systems Vital Signs Vitals Vital Signs Date Time Temp Pulse Resp B/P Pulse Ox O2 Delivery O2 Flow Rate FiO2 04/27/17 16:01 60 04/27/17 15:49 97.7 19 113/55 99 Intake and Output 04/26/17 04/26/17 04/27/17 15:00 23:00 07:00 Intake Total 200 ml Balance 200 ml Exam Constitutional: alert Neck: supple Respiratory: clear to auscultation Cardiovascular: irregular rhythm Gastrointestinal: non-tender, soft Musculoskeletal: nl extremities to inspection, swelling Extremities: normal pulses (Left knee) Results Result Diagram: 04/27/17 0625 04/27/17 0625 Results 24 hrs Laboratory Tests Test 04/26/17 20:43 04/27/17 06:25 04/27/17 08:28 04/27/17 12:26 Bedside Glucose 157 180 227 H White Blood Count 13.9 H Red Blood Count 4.52 L Hemoglobin 13.0 L Hematocrit 40.7 L Mean Corpuscular Volume 90.0 Mean Corpuscular Hemoglobin 28.8 L Mean Corpuscular Hemoglobin Concent 31.9 L Red Cell Distribution Width 12.8 Platelet Count 236 Mean Platelet Volume 11.0 H Neutrophils % 61.2 Lymphocytes % 22.4 Monocytes % 12.0 H Eosinophils % 2.5 Basophils % 0.4 Nucleated Red Blood Cells % 0.0 Neutrophils # 8.5 H Lymphocytes # 3.1 H Monocytes # 1.7 H Eosinophils # 0.3 Basophils # 0.1 Nucleated Red Blood Cells # 0.0 Sodium Level 136 Potassium Level 4.4 Chloride Level 104 Carbon Dioxide Level 27 Anion Gap 9 Blood Urea Nitrogen 37 H Creatinine 1.45 H Glucose Level 218 Calcium Level 9.1 Test 04/27/17 17:27 Bedside Glucose 136 Medications Medications Current Medications Allopurinol (Zyloprim) 100 mg DAILY PO Last administered on 04/27/17 08:30; Admin Dose 100 MG; Start 04/21/17 at 09:00 Clonidine (Catapres) 0.2 mg Q8 PO Last administered on 04/27/17 14:41; Admin Dose 0.2 MG; Start 04/20/17 at 14:00 Furosemide (Lasix) 10 mg DAILY PO Last administered on 04/27/17 08:31; Admin Dose 10 MG; Start 04/21/17 at 09:00 Hydralazine HCl (Apresoline) 100 mg Q8 PO Last administered on 04/27/17 14:40 ; Admin Dose 100 MG; Start 04/20/17 at 14:00 Acetaminophen/ Hydrocodone Bitart ([place] (5/325)) 1 tab PRN PO Last administered on 04/23/17 18:48; Admin Dose 1 TAB; Start 04/20/17 at 12:00 Linagliptin (Tradjenta) 5 mg DAILY PO Last administered on 04/27/17 08:30; Admin Dose 5 MG; Start 04/21/17 at 09:00 Nitroglycerin (Nitroglycerin (Sl Tab) 0.4 Mg) 1 tab PRN SL ; Start 04/20/17 at 12:00 Pantoprazole (Protonix Tab) 40 mg DAILY PO Last administered on 04/27/17 08:29 ; Admin Dose 40 MG; Start 04/20/17 at 12:00 Ondansetron HCl (Zofran Inj) 4 mg Q6 PRN IV NAUSEA AND/OR VOMITING; Start 04/20 at 12:00 Docusate Sodium (Colace) 100 mg BID PO Last administered on 04/27/17 08:28; Admin Dose 100 MG; Start 04/20/17 at 21:00 Acetaminophen (Tylenol Tab) 650 mg Q6 PRN PO PAIN AND OR ELEVATED TEMP Last administered on 04/22/17 21:13; Admin Dose 650 MG; Start 04/20/17 at 12:00 Morphine Sulfate (morphine) 2 mg Q6H PRN IV PAIN LEVEL 6-10; Start 04/20/17 at 12:00 Hydralazine HCl (Apresoline) 20 mg Q6 PRN IV ELEVATED BLOOD PRESSURE Last administered on 04/26/17 12:41; Admin Dose 20 MG; Start 04/20/17 at 12:30 Miscellaneous Information 1 ea NOTE XX ; Start 04/20/17 at 12:30 Glucose (Glutose) 15 gm Q15M PRN PO DECREASED GLUCOSE; Start 04/20/17 at 12:30 Glucose (Glutose) 22.5 gm Q15M PRN PO DECREASED GLUCOSE; Start 04/20/17 at 12: 30 Dextrose (D50w Syringe) 25 ml Q15M PRN IV DECREASED GLUCOSE; Start 04/20/17 at 12:30 Dextrose (D50w Syringe) 50 ml Q15M PRN IV DECREASED GLUCOSE; Start 04/20/17 at 12:30 Glucagon (Glucagen) 1 mg Q15M PRN IM DECREASED GLUCOSE; Start 04/20/17 at 12:30 Glucose (Glutose) 15 gm Q15M PRN BUCCAL DECREASED GLUCOSE; Start 04/20/17 at 12 :30 Diagnostic Test (Pha) (Accu-Chek) 1 ea 02 XX Last administered on 04/27/17 02: 01; Admin Dose 1 EA; Start 04/21/17 at 02:00 Atorvastatin Calcium (Lipitor) 40 mg QHS PO Last administered on 04/26/17 20: 44; Admin Dose 40 MG; Start 04/20/17 at 21:00 Enoxaparin Sodium (Lovenox) 40 mg DAILY SC Last administered on 04/27/17 08:35 ; Admin Dose 40 MG; Start 04/20/17 at 16:48 Isosorbide Mononitrate (Imdur) 30 mg DAILY PO Last administered on 04/27/17 08 :30; Admin Dose 30 MG; Start 04/21/17 at 09:00 Carvedilol (Coreg) 12.5 mg BID PO Last administered on 04/26/17 20:44; Admin Dose 12.5 MG; Start 04/21/17 at 21:00 Prednisone (Prednisone) 10 mg DAILY PO Last administered on 04/26/17 08:26; Admin Dose 10 MG; Start 04/24/17 at 09:00 Clonidine (Catapres) 0.1 mg Q6 PRN PO For Systolic BP >160 Last administered on 04/24/17 03:48; Admin Dose 0.1 MG; Start 04/24/17 at 00:30 Insulin Glargine (Lantus) 30 unit QHS SC Last administered on 04/26/17 20:49; Admin Dose 30 UNIT; Start 04/26/17 at 21:00 Nifedipine (Procardia Xl) 90 mg DAILY PO ; Start 04/28/17 at 09:00 Nifedipine (Procardia Xl) 30 mg ONCE PO Last administered on 04/27/17 10:00; Admin Dose 30 MG; Start 04/27/17 at 10:00; Stop 04/27/17 at 20:00 LENO NICE Apr 27, 2017 18:58
[2017-04-27] MEDS: ATORVASTATIN 40 MG TAB PO SCH (20:07)
[2017-04-27] MEDS: INSULIN GLARGINE [LANtus] 3 ML PEN SC SCH (20:18)
[2017-04-28] VITALS (14 sets, daily range): BP systolic 101–177; BP diastolic 50–79; PULSE 40–68; RESP 16–18
[2017-04-28] MEDS: ACCU-CHEK XX SCH (02:00)
[2017-04-28 07:38] LABS: BASOPHIL # 0.1 10^3/ul (0.0-0.1); BASOPHILS % 0.7 % (0.0-2.0); EOSINOPHILS # 0.4 10^3/ul (0.0-0.5); HEMATOCRIT 41.8 % (42.0-52.0); HEMOGLOBIN 13.4 g/dl (14.0-18.0); LYMPHOCYTES % 23.1 % (15.0-51.0); MEAN CORPUSCULAR HEMOGLOBIN 29.1 pg (29.0-33.0); MEAN CORPUSCULAR HGB CONC 32.1 g/dl (32.0-37.0); MEAN CORPUSCULAR VOLUME 90.7 fl (82.0-101.0); MEAN PLATELET VOLUME 10.4 fl (7.4-10.4); MONOCYTE # 1.5 10^3/ul (0.3-0.9); MONOCYTES % 11.7 % (0.0-11.0); NEUTROPHIL # 7.5 10^3/ul (1.6-7.5); NEUTROPHILS % 58.8 % (39.0-77.0); PLATELET COUNT 250 10^3/UL (140-415); RED BLOOD COUNT 4.61 10^6/ul (4.70-6.10); RED CELL DISTRIBUTION WIDTH 12.4 % (11.5-14.5); WHITE BLOOD COUNT 12.8 10^3/ul (4.8-10.8)
[2017-04-28] MEDS: hydrALAzine 20 MG INJ IV PRN (07:48)
[2017-04-28] MEDS: INSULIN ASPART [NOVOLOG] 3 ML PEN SC SCH ×7 (07:49→20:26)
[2017-04-28 07:58] LABS: CALCIUM 9.1 mg/dl (8.4-10.2); CREATININE 1.62 mg/dl (0.61-1.24); POTASSIUM 4.2 mmol/L (3.5-5.1)
[2017-04-28] MEDS: FUROSEMIDE 20 MG TAB PO SCH (08:52)
[2017-04-28] MEDS: NIFEdipine (XL) 90 MG TAB PO SCH (08:52)
[2017-04-28] MEDS: ISOSORBIDE MONONITRATE(SR)30 MG TAB PO SCH (08:52)
[2017-04-28] MEDS: LINAGLIPTIN 5 MG TABLET PO SCH (08:52)
[2017-04-28] MEDS: ALLOPURINOL 100 MG TAB PO SCH (08:53)
[2017-04-28] MEDS: PANTOPRAZOLE (EC) 40 MG TAB PO SCH (08:53)
[2017-04-28] MEDS: DOCUSATE SODIUM 100 MG CAP PO SCH ×2 (08:53→20:19)
[2017-04-28] MEDS: predniSONE 10 MG TAB PO SCH (08:53)
[2017-04-28] MEDS: ENOXAPARIN 40 MG/0.4 ML SYG SC SCH (09:01)
--- NOTE | 2017-04-28 10:09 | CONS ---
Date/Time of Note Date/Time of Note DATE: 04/28/17 TIME: 10:08 Assessment/Plan Assessment/Plan Additional Assessment/Plan - Chest pain. Serial troponins x3 negative. Small to moderate size predominantly nonreversible perfusion defect in the inferior wall noted on Lexiscan. - CAD s/p CABG in 2012 - Atrial flutter - Accelerated HTN - JOSE - T2DM - Hgb A1c 8.2% - HLD - Left knee gout flare - Fever on 04/22/2017 likely related to gout, resolved - Recurrent leukocytosis, likely reactive, and partly due to steroid margination Recommendations: - DC ceftriaxone (04/22/2017-) as there are no e/o infection. Monitor closely off antibiotic. - Follow up procalcitonin 04/24/2017 (in process) Management d/w pt/ staff/and Dr. Castle Consultation Date/Type/Reason Admit Date/Time Apr 20, 2017 at 10:12 Initial Consult Date 04/24/17 Type of Consultation: Infectious Disease Referring Provider: SURENDRA ROSE MD 24 HR Interval Summary Constitutional: improved Detailed Summary Respiratory: no complaints Cardiovascular: no complaints Gastrointestinal: no complaints Musculoskeletal: no complaints Neurologic: no complaints Exam/Review of Systems Vital Signs Vitals Vital Signs Date Time Temp Pulse Resp B/P Pulse Ox O2 Delivery O2 Flow Rate FiO2 04/28/17 08:51 68 116/58 04/28/17 08:02 97.6 18 93 Intake and Output 04/27/17 04/27/17 04/28/17 15:00 23:00 07:00 Intake Total 50 ml 650 ml Output Total 801 ml Balance 50 ml -151 ml Exam Constitutional: alert, oriented, well developed Respiratory: clear to auscultation, normal air movement Cardiovascular: nl pulses, regular rate and rhythm Gastrointestinal: non-tender, soft Musculoskeletal: nl extremities to inspection Extremities: normal pulses Neurological: nl mental status, nl speech Results Result Diagram: 04/28/17 0703 04/28/17 0703 Results 24 hrs Laboratory Tests Test 04/27/17 12:26 04/27/17 17:27 04/27/17 20:06 04/28/17 07:03 Bedside Glucose 227 H 136 229 H White Blood Count 12.8 H Red Blood Count 4.61 L Hemoglobin 13.4 L Hematocrit 41.8 L Mean Corpuscular Volume 90.7 Mean Corpuscular Hemoglobin 29.1 Mean Corpuscular Hemoglobin Concent 32.1 Red Cell Distribution Width 12.4 Platelet Count 250 Mean Platelet Volume 10.4 Neutrophils % 58.8 Lymphocytes % 23.1 Monocytes % 11.7 H Eosinophils % 3.0 Basophils % 0.7 Nucleated Red Blood Cells % 0.0 Neutrophils # 7.5 Lymphocytes # 3.0 H Monocytes # 1.5 H Eosinophils # 0.4 Basophils # 0.1 Nucleated Red Blood Cells # 0.0 Sodium Level 138 Potassium Level 4.2 Chloride Level 105 Carbon Dioxide Level 27 Anion Gap 10 Blood Urea Nitrogen 39 H Creatinine 1.62 H Glucose Level 186 Calcium Level 9.1 Test 04/28/17 07:45 Bedside Glucose 162 Medications Medications Current Medications Allopurinol (Zyloprim) 100 mg DAILY PO Last administered on 04/28/17 08:53; Admin Dose 100 MG; Start 04/21/17 at 09:00 Clonidine (Catapres) 0.2 mg Q8 PO Last administered on 04/28/17 05:54; Admin Dose 0.2 MG; Start 04/20/17 at 14:00 Furosemide (Lasix) 10 mg DAILY PO Last administered on 04/28/17 08:52; Admin Dose 10 MG; Start 04/21/17 at 09:00 Hydralazine HCl (Apresoline) 100 mg Q8 PO Last administered on 04/28/17 05:55 ; Admin Dose 100 MG; Start 04/20/17 at 14:00 Acetaminophen/ Hydrocodone Bitart ([place] (5/325)) 1 tab PRN PO Last administered on 04/23/17 18:48; Admin Dose 1 TAB; Start 04/20/17 at 12:00 Linagliptin (Tradjenta) 5 mg DAILY PO Last administered on 04/28/17 08:52; Admin Dose 5 MG; Start 04/21/17 at 09:00 Nitroglycerin (Nitroglycerin (Sl Tab) 0.4 Mg) 1 tab PRN SL ; Start 04/20/17 at 12:00 Pantoprazole (Protonix Tab) 40 mg DAILY PO Last administered on 04/28/17 08:53 ; Admin Dose 40 MG; Start 04/20/17 at 12:00 Ondansetron HCl (Zofran Inj) 4 mg Q6 PRN IV NAUSEA AND/OR VOMITING; Start 04/20 at 12:00 Docusate Sodium (Colace) 100 mg BID PO Last administered on 04/28/17 08:53; Admin Dose 100 MG; Start 04/20/17 at 21:00 Acetaminophen (Tylenol Tab) 650 mg Q6 PRN PO PAIN AND OR ELEVATED TEMP Last administered on 04/22/17 21:13; Admin Dose 650 MG; Start 04/20/17 at 12:00 Morphine Sulfate (morphine) 2 mg Q6H PRN IV PAIN LEVEL 6-10; Start 04/20/17 at 12:00 Hydralazine HCl (Apresoline) 20 mg Q6 PRN IV ELEVATED BLOOD PRESSURE Last administered on 04/28/17 07:48; Admin Dose 20 MG; Start 04/20/17 at 12:30 Miscellaneous Information 1 ea NOTE XX ; Start 04/20/17 at 12:30 Glucose (Glutose) 15 gm Q15M PRN PO DECREASED GLUCOSE; Start 04/20/17 at 12:30 Glucose (Glutose) 22.5 gm Q15M PRN PO DECREASED GLUCOSE; Start 04/20/17 at 12: 30 Dextrose (D50w Syringe) 25 ml Q15M PRN IV DECREASED GLUCOSE; Start 04/20/17 at 12:30 Dextrose (D50w Syringe) 50 ml Q15M PRN IV DECREASED GLUCOSE; Start 04/20/17 at 12:30 Glucagon (Glucagen) 1 mg Q15M PRN IM DECREASED GLUCOSE; Start 04/20/17 at 12:30 Glucose (Glutose) 15 gm Q15M PRN BUCCAL DECREASED GLUCOSE; Start 04/20/17 at 12 :30 Diagnostic Test (Pha) (Accu-Chek) 1 ea 02 XX Last administered on 04/27/17 02: 01; Admin Dose 1 EA; Start 04/21/17 at 02:00 Atorvastatin Calcium (Lipitor) 40 mg QHS PO Last administered on 04/27/17 20: 07; Admin Dose 40 MG; Start 04/20/17 at 21:00 Enoxaparin Sodium (Lovenox) 40 mg DAILY SC Last administered on 04/28/17 09:01 ; Admin Dose 40 MG; Start 04/20/17 at 16:48 Isosorbide Mononitrate (Imdur) 30 mg DAILY PO Last administered on 04/28/17 08 :52; Admin Dose 30 MG; Start 04/21/17 at 09:00 Carvedilol (Coreg) 12.5 mg BID PO Last administered on 04/28/17 08:53; Admin Dose 12.5 MG; Start 04/21/17 at 21:00 Prednisone (Prednisone) 10 mg DAILY PO Last administered on 04/28/17 08:53; Admin Dose 10 MG; Start 04/24/17 at 09:00 Clonidine (Catapres) 0.1 mg Q6 PRN PO For Systolic BP >160 Last administered on 04/24/17 03:48; Admin Dose 0.1 MG; Start 04/24/17 at 00:30 Insulin Glargine (Lantus) 30 unit QHS SC Last administered on 04/27/17 20:18; Admin Dose 30 UNIT; Start 04/26/17 at 21:00 Nifedipine (Procardia Xl) 90 mg DAILY PO Last administered on 04/28/17 08:52; Admin Dose 90 MG; Start 04/28/17 at 09:00 LOPEZ GONZALEZ Apr 28, 2017 10:09
[2017-04-28] MEDS: COLCHICINE 0.6 MG TAB PO SCH (12:07)
--- NOTE | 2017-04-28 13:53 | PN ---
Date/Time of Note Date/Time of Note DATE: 04/28/17 TIME: 13:44 Assessment/Plan VTE Prophylaxis VTE Prophylaxis Intervention: SCD's Lines/Catheters IV Catheter Type (from Nrs): Saline Lock Assessment/Plan Chief Complaint/Hosp Course Patient with episode of hypertension, Procardia increased to 90, atrial flutter at controlled rate. Assessment/Plan - HTN, BP medication is optimized by cardiology and on Dr. Montaño is following. - Chest pain. negative troponins x3, small mostly irreversible changes on Lexiscan. - Atrial flutter with some slow ventricular response at times down to the 40s on beta raffi. - Coronary artery disease, status post coronary artery bypass graft surgery 2012 , indication management. - Dyslipidemia. - Gout. Status post left knee steroid injection by Dr. Morales, orthopedic surgery - DM. Continue Lantus and pre-meal NovoLog. Further recommendations based on clinical course. Plan of care discussed with Dr. Naranjo. Problems: Exam/Review of Systems Vital Signs Vitals Vital Signs Date Time Temp Pulse Resp B/P Pulse Ox O2 Delivery O2 Flow Rate FiO2 04/28/17 12:04 58 04/28/17 11:33 97.9 18 143/67 98 Intake and Output 04/27/17 04/27/17 04/28/17 15:00 23:00 07:00 Intake Total 50 ml 650 ml Output Total 801 ml Balance 50 ml -151 ml Exam Constitutional: alert Neck: supple Respiratory: clear to auscultation Cardiovascular: irregular rhythm Gastrointestinal: non-tender, soft Musculoskeletal: nl extremities to inspection, swelling Extremities: normal pulses (Left knee swelling, improved) Results Result Diagram: 04/28/17 0703 04/28/17 0703 Results 24 hrs Laboratory Tests Test 04/27/17 17:27 04/27/17 20:06 04/28/17 07:03 04/28/17 07:45 Bedside Glucose 136 229 H 162 White Blood Count 12.8 H Red Blood Count 4.61 L Hemoglobin 13.4 L Hematocrit 41.8 L Mean Corpuscular Volume 90.7 Mean Corpuscular Hemoglobin 29.1 Mean Corpuscular Hemoglobin Concent 32.1 Red Cell Distribution Width 12.4 Platelet Count 250 Mean Platelet Volume 10.4 Neutrophils % 58.8 Lymphocytes % 23.1 Monocytes % 11.7 H Eosinophils % 3.0 Basophils % 0.7 Nucleated Red Blood Cells % 0.0 Neutrophils # 7.5 Lymphocytes # 3.0 H Monocytes # 1.5 H Eosinophils # 0.4 Basophils # 0.1 Nucleated Red Blood Cells # 0.0 Sodium Level 138 Potassium Level 4.2 Chloride Level 105 Carbon Dioxide Level 27 Anion Gap 10 Blood Urea Nitrogen 39 H Creatinine 1.62 H Glucose Level 186 Calcium Level 9.1 Test 04/28/17 12:08 Bedside Glucose 199 Medications Medications Current Medications Allopurinol (Zyloprim) 100 mg DAILY PO Last administered on 04/28/17 08:53; Admin Dose 100 MG; Start 04/21/17 at 09:00 Clonidine (Catapres) 0.2 mg Q8 PO Last administered on 04/28/17 05:54; Admin Dose 0.2 MG; Start 04/20/17 at 14:00 Furosemide (Lasix) 10 mg DAILY PO Last administered on 04/28/17 08:52; Admin Dose 10 MG; Start 04/21/17 at 09:00 Hydralazine HCl (Apresoline) 100 mg Q8 PO Last administered on 04/28/17 05:55 ; Admin Dose 100 MG; Start 04/20/17 at 14:00 Acetaminophen/ Hydrocodone Bitart ([place] (5/325)) 1 tab PRN PO Last administered on 04/23/17 18:48; Admin Dose 1 TAB; Start 04/20/17 at 12:00 Linagliptin (Tradjenta) 5 mg DAILY PO Last administered on 04/28/17 08:52; Admin Dose 5 MG; Start 04/21/17 at 09:00 Nitroglycerin (Nitroglycerin (Sl Tab) 0.4 Mg) 1 tab PRN SL ; Start 04/20/17 at 12:00 Pantoprazole (Protonix Tab) 40 mg DAILY PO Last administered on 04/28/17 08:53 ; Admin Dose 40 MG; Start 04/20/17 at 12:00 Ondansetron HCl (Zofran Inj) 4 mg Q6 PRN IV NAUSEA AND/OR VOMITING; Start 04/20 at 12:00 Docusate Sodium (Colace) 100 mg BID PO Last administered on 04/28/17 08:53; Admin Dose 100 MG; Start 04/20/17 at 21:00 Acetaminophen (Tylenol Tab) 650 mg Q6 PRN PO PAIN AND OR ELEVATED TEMP Last administered on 04/22/17 21:13; Admin Dose 650 MG; Start 04/20/17 at 12:00 Morphine Sulfate (morphine) 2 mg Q6H PRN IV PAIN LEVEL 6-10; Start 04/20/17 at 12:00 Hydralazine HCl (Apresoline) 20 mg Q6 PRN IV ELEVATED BLOOD PRESSURE Last administered on 04/28/17 07:48; Admin Dose 20 MG; Start 04/20/17 at 12:30 Miscellaneous Information 1 ea NOTE XX ; Start 04/20/17 at 12:30 Glucose (Glutose) 15 gm Q15M PRN PO DECREASED GLUCOSE; Start 04/20/17 at 12:30 Glucose (Glutose) 22.5 gm Q15M PRN PO DECREASED GLUCOSE; Start 04/20/17 at 12: 30 Dextrose (D50w Syringe) 25 ml Q15M PRN IV DECREASED GLUCOSE; Start 04/20/17 at 12:30 Dextrose (D50w Syringe) 50 ml Q15M PRN IV DECREASED GLUCOSE; Start 04/20/17 at 12:30 Glucagon (Glucagen) 1 mg Q15M PRN IM DECREASED GLUCOSE; Start 04/20/17 at 12:30 Glucose (Glutose) 15 gm Q15M PRN BUCCAL DECREASED GLUCOSE; Start 04/20/17 at 12 :30 Diagnostic Test (Pha) (Accu-Chek) 1 ea 02 XX Last administered on 04/27/17 02: 01; Admin Dose 1 EA; Start 04/21/17 at 02:00 Atorvastatin Calcium (Lipitor) 40 mg QHS PO Last administered on 04/27/17 20: 07; Admin Dose 40 MG; Start 04/20/17 at 21:00 Enoxaparin Sodium (Lovenox) 40 mg DAILY SC Last administered on 04/28/17 09:01 ; Admin Dose 40 MG; Start 04/20/17 at 16:48 Isosorbide Mononitrate (Imdur) 30 mg DAILY PO Last administered on 04/28/17 08 :52; Admin Dose 30 MG; Start 04/21/17 at 09:00 Carvedilol (Coreg) 12.5 mg BID PO Last administered on 04/28/17 08:53; Admin Dose 12.5 MG; Start 04/21/17 at 21:00 Prednisone (Prednisone) 10 mg DAILY PO Last administered on 04/28/17 08:53; Admin Dose 10 MG; Start 04/24/17 at 09:00 Clonidine (Catapres) 0.1 mg Q6 PRN PO For Systolic BP >160 Last administered on 04/24/17 03:48; Admin Dose 0.1 MG; Start 04/24/17 at 00:30 Insulin Glargine (Lantus) 30 unit QHS SC Last administered on 04/27/17 20:18; Admin Dose 30 UNIT; Start 04/26/17 at 21:00 Nifedipine (Procardia Xl) 90 mg DAILY PO Last administered on 04/28/17 08:52; Admin Dose 90 MG; Start 04/28/17 at 09:00 LENO NICE Apr 28, 2017 13:53
[2017-04-28] MEDS: predniSONE 5 MG TAB PO SCH (14:15)
--- NOTE | 2017-04-28 15:35 | CONS ---
Date/Time of Note Date/Time of Note DATE: 04/28/17 TIME: 15:26 Assessment/Plan Assessment/Plan Additional Assessment/Plan 1. acute kidney injury due to prerenal azotemia 2. Chest pain 3. h/o CAD s/p CABG 4. Hypertension- not optimally controlled 5. hyperlipidemia 6. Diabetes melitus 7. 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 Left knee pain and swelling Plan: continue current Chest pain work up, s/p Orthopedic evaluation for left knee pain and swelling - stopped lisinopril on 04/21/17 - Cr 1.62 continue hydrlazine, and Clonidine for BP control will use IV hydrlaszine prn , - will increase it Procardia XL to 90mg po daily IV abx ceftriaxone will follow up Consultation Date/Type/Reason Admit Date/Time Apr 20, 2017 at 10:12 Initial Consult Date 04/20/17 Type of Consultation: Infectious Disease Referring Provider: SURENDRA ROSE MD 24 HR Interval Summary Free Text/Dictation doing ok, BP still intermittently high, Cr 1.62 Exam/Review of Systems Vital Signs Vitals Vital Signs Date Time Temp Pulse Resp B/P Pulse Ox O2 Delivery O2 Flow Rate FiO2 04/28/17 12:04 58 04/28/17 11:33 97.9 18 143/67 98 Intake and Output 04/27/17 04/27/17 04/28/17 15:00 23:00 07:00 Intake Total 50 ml 650 ml Output Total 801 ml Balance 50 ml -151 ml Exam Constitutional: alert Respiratory: clear to auscultation, diminished breath sounds, normal air movement Cardiovascular: nl pulses, regular rate and rhythm Gastrointestinal: non-tender, soft Musculoskeletal: nl extremities to inspection Neurological: [employer]IV[employer] II-XII intact, nl mental status, nl speech, nl strength Skin: nl turgor Lymph: nl lymph nodes Results Result Diagram: 04/28/17 0703 04/28/17 0703 Results 24 hrs Laboratory Tests Test 04/27/17 17:27 04/27/17 20:06 04/28/17 07:03 04/28/17 07:45 Bedside Glucose 136 229 H 162 White Blood Count 12.8 H Red Blood Count 4.61 L Hemoglobin 13.4 L Hematocrit 41.8 L Mean Corpuscular Volume 90.7 Mean Corpuscular Hemoglobin 29.1 Mean Corpuscular Hemoglobin Concent 32.1 Red Cell Distribution Width 12.4 Platelet Count 250 Mean Platelet Volume 10.4 Neutrophils % 58.8 Lymphocytes % 23.1 Monocytes % 11.7 H Eosinophils % 3.0 Basophils % 0.7 Nucleated Red Blood Cells % 0.0 Neutrophils # 7.5 Lymphocytes # 3.0 H Monocytes # 1.5 H Eosinophils # 0.4 Basophils # 0.1 Nucleated Red Blood Cells # 0.0 Sodium Level 138 Potassium Level 4.2 Chloride Level 105 Carbon Dioxide Level 27 Anion Gap 10 Blood Urea Nitrogen 39 H Creatinine 1.62 H Glucose Level 186 Calcium Level 9.1 Test 04/28/17 12:08 Bedside Glucose 199 Medications Medications Current Medications Allopurinol (Zyloprim) 100 mg DAILY PO Last administered on 04/28/17 08:53; Admin Dose 100 MG; Start 04/21/17 at 09:00 Clonidine (Catapres) 0.2 mg Q8 PO Last administered on 04/28/17 13:50; Admin Dose 0.2 MG; Start 04/20/17 at 14:00 Furosemide (Lasix) 10 mg DAILY PO Last administered on 04/28/17 08:52; Admin Dose 10 MG; Start 04/21/17 at 09:00 Hydralazine HCl (Apresoline) 100 mg Q8 PO Last administered on 04/28/17 13:50 ; Admin Dose 100 MG; Start 04/20/17 at 14:00 Acetaminophen/ Hydrocodone Bitart ([place] (5/325)) 1 tab PRN PO Last administered on 04/23/17 18:48; Admin Dose 1 TAB; Start 04/20/17 at 12:00 Linagliptin (Tradjenta) 5 mg DAILY PO Last administered on 04/28/17 08:52; Admin Dose 5 MG; Start 04/21/17 at 09:00 Nitroglycerin (Nitroglycerin (Sl Tab) 0.4 Mg) 1 tab PRN SL ; Start 04/20/17 at 12:00 Pantoprazole (Protonix Tab) 40 mg DAILY PO Last administered on 04/28/17 08:53 ; Admin Dose 40 MG; Start 04/20/17 at 12:00 Ondansetron HCl (Zofran Inj) 4 mg Q6 PRN IV NAUSEA AND/OR VOMITING; Start 04/20 at 12:00 Docusate Sodium (Colace) 100 mg BID PO Last administered on 04/28/17 08:53; Admin Dose 100 MG; Start 04/20/17 at 21:00 Acetaminophen (Tylenol Tab) 650 mg Q6 PRN PO PAIN AND OR ELEVATED TEMP Last administered on 04/22/17 21:13; Admin Dose 650 MG; Start 04/20/17 at 12:00 Morphine Sulfate (morphine) 2 mg Q6H PRN IV PAIN LEVEL 6-10; Start 04/20/17 at 12:00 Hydralazine HCl (Apresoline) 20 mg Q6 PRN IV ELEVATED BLOOD PRESSURE Last administered on 04/28/17 07:48; Admin Dose 20 MG; Start 04/20/17 at 12:30 Miscellaneous Information 1 ea NOTE XX ; Start 04/20/17 at 12:30 Glucose (Glutose) 15 gm Q15M PRN PO DECREASED GLUCOSE; Start 04/20/17 at 12:30 Glucose (Glutose) 22.5 gm Q15M PRN PO DECREASED GLUCOSE; Start 04/20/17 at 12: 30 Dextrose (D50w Syringe) 25 ml Q15M PRN IV DECREASED GLUCOSE; Start 04/20/17 at 12:30 Dextrose (D50w Syringe) 50 ml Q15M PRN IV DECREASED GLUCOSE; Start 04/20/17 at 12:30 Glucagon (Glucagen) 1 mg Q15M PRN IM DECREASED GLUCOSE; Start 04/20/17 at 12:30 Glucose (Glutose) 15 gm Q15M PRN BUCCAL DECREASED GLUCOSE; Start 04/20/17 at 12 :30 Diagnostic Test (Pha) (Accu-Chek) 1 ea 02 XX Last administered on 04/27/17 02: 01; Admin Dose 1 EA; Start 04/21/17 at 02:00 Atorvastatin Calcium (Lipitor) 40 mg QHS PO Last administered on 04/27/17 20: 07; Admin Dose 40 MG; Start 04/20/17 at 21:00 Enoxaparin Sodium (Lovenox) 40 mg DAILY SC Last administered on 04/28/17 09:01 ; Admin Dose 40 MG; Start 04/20/17 at 16:48 Isosorbide Mononitrate (Imdur) 30 mg DAILY PO Last administered on 04/28/17 08 :52; Admin Dose 30 MG; Start 04/21/17 at 09:00 Carvedilol (Coreg) 12.5 mg BID PO Last administered on 04/28/17 08:53; Admin Dose 12.5 MG; Start 04/21/17 at 21:00 Clonidine (Catapres) 0.1 mg Q6 PRN PO For Systolic BP >160 Last administered on 04/24/17 03:48; Admin Dose 0.1 MG; Start 04/24/17 at 00:30 Insulin Glargine (Lantus) 30 unit QHS SC Last administered on 04/27/17 20:18; Admin Dose 30 UNIT; Start 04/26/17 at 21:00 Nifedipine (Procardia Xl) 90 mg DAILY PO Last administered on 04/28/17 08:52; Admin Dose 90 MG; Start 04/28/17 at 09:00 Prednisone (Prednisone) 5 mg DAILY PO ; Start 04/28/17 at 15:00 LORENZA GIBSON MD Apr 28, 2017 15:35
--- NOTE | 2017-04-28 17:53 | CONS ---
Date/Time of Note Date/Time of Note DATE: 04/28/17 TIME: 17:50 Assessment/Plan Assessment/Plan Chief Complaint/Hosp Course IMPRESSION: 1. Chest pain. Assess for acute coronary syndrome with negative troponins x3. Lexiscan 04/22 with EF 45%/no ischemia 2. Atrial flutter with some slow ventricular response at times down to the 30-40s on beta raffi 3. Abnormal electrocardiogram with nonspecific ST and T-wave abnormalities. 4. Coronary artery disease, status post coronary artery bypass graft surgery 2012. 5. Dyslipidemia. 6. Gout. Recc: -Tele -serial ecg's -Continue hydralazine/procardia XL -decrease dose of coreg to follow -Continue colchicine Problems: Consultation Date/Type/Reason Admit Date/Time Apr 20, 2017 at 10:12 Initial Consult Date 04/20/17 Type of Consultation: cardiology Reason for Consultation Chest pain Referring Provider: SURENDRA ROSE MD Exam/Review of Systems Vital Signs Vitals Vital Signs Date Time Temp Pulse Resp B/P Pulse Ox O2 Delivery O2 Flow Rate FiO2 04/28/17 16:13 98.6 62 18 101/50 96 Intake and Output 04/27/17 04/27/17 04/28/17 15:00 23:00 07:00 Intake Total 50 ml 650 ml Output Total 801 ml Balance 50 ml -151 ml Exam Review of Systems: CONSTITUTIONAL: No fevers, chills. PULMONARY: No sob CARDIOVASCULAR: No chest pain/palpitations GASTROINTESTINAL: No nausea/vomiting. GENITOURINARY: No hematuria/dysuria. MUSCULOSKELETAL: No myagias/arthalgias. PSYCHIATRIC: The patient denies depression. NEUROLOGIC: No weakness Constitutional: alert Psych: no complaints Head: normocephalic ENMT: mucosa pink and moist Neck: jvd (9 cm water), supple Respiratory: clear to auscultation Cardiovascular: regular rate and rhythm Gastrointestinal: non-tender, soft Musculoskeletal: muscle tone (normal) Extremities: edema (normal) Neurological: other (No focal deficits) Results Result Diagram: 04/28/17 0703 04/28/17 0703 Results 24 hrs Laboratory Tests Test 04/27/17 20:06 04/28/17 07:03 04/28/17 07:45 04/28/17 12:08 Bedside Glucose 229 H 162 199 White Blood Count 12.8 H Red Blood Count 4.61 L Hemoglobin 13.4 L Hematocrit 41.8 L Mean Corpuscular Volume 90.7 Mean Corpuscular Hemoglobin 29.1 Mean Corpuscular Hemoglobin Concent 32.1 Red Cell Distribution Width 12.4 Platelet Count 250 Mean Platelet Volume 10.4 Neutrophils % 58.8 Lymphocytes % 23.1 Monocytes % 11.7 H Eosinophils % 3.0 Basophils % 0.7 Nucleated Red Blood Cells % 0.0 Neutrophils # 7.5 Lymphocytes # 3.0 H Monocytes # 1.5 H Eosinophils # 0.4 Basophils # 0.1 Nucleated Red Blood Cells # 0.0 Sodium Level 138 Potassium Level 4.2 Chloride Level 105 Carbon Dioxide Level 27 Anion Gap 10 Blood Urea Nitrogen 39 H Creatinine 1.62 H Glucose Level 186 Calcium Level 9.1 Test 04/28/17 17:09 Bedside Glucose 173 Medications Medications Current Medications Allopurinol (Zyloprim) 100 mg DAILY PO Last administered on 04/28/17 08:53; Admin Dose 100 MG; Start 04/21/17 at 09:00 Clonidine (Catapres) 0.2 mg Q8 PO Last administered on 04/28/17 13:50; Admin Dose 0.2 MG; Start 04/20/17 at 14:00 Furosemide (Lasix) 10 mg DAILY PO Last administered on 04/28/17 08:52; Admin Dose 10 MG; Start 04/21/17 at 09:00 Hydralazine HCl (Apresoline) 100 mg Q8 PO Last administered on 04/28/17 13:50 ; Admin Dose 100 MG; Start 04/20/17 at 14:00 Acetaminophen/ Hydrocodone Bitart ([place] (5/325)) 1 tab PRN PO Last administered on 04/23/17 18:48; Admin Dose 1 TAB; Start 04/20/17 at 12:00 Linagliptin (Tradjenta) 5 mg DAILY PO Last administered on 04/28/17 08:52; Admin Dose 5 MG; Start 04/21/17 at 09:00 Nitroglycerin (Nitroglycerin (Sl Tab) 0.4 Mg) 1 tab PRN SL ; Start 04/20/17 at 12:00 Pantoprazole (Protonix Tab) 40 mg DAILY PO Last administered on 04/28/17 08:53 ; Admin Dose 40 MG; Start 04/20/17 at 12:00 Ondansetron HCl (Zofran Inj) 4 mg Q6 PRN IV NAUSEA AND/OR VOMITING; Start 04/20 at 12:00 Docusate Sodium (Colace) 100 mg BID PO Last administered on 04/28/17 08:53; Admin Dose 100 MG; Start 04/20/17 at 21:00 Acetaminophen (Tylenol Tab) 650 mg Q6 PRN PO PAIN AND OR ELEVATED TEMP Last administered on 04/22/17 21:13; Admin Dose 650 MG; Start 04/20/17 at 12:00 Morphine Sulfate (morphine) 2 mg Q6H PRN IV PAIN LEVEL 6-10; Start 04/20/17 at 12:00 Hydralazine HCl (Apresoline) 20 mg Q6 PRN IV ELEVATED BLOOD PRESSURE Last administered on 04/28/17 07:48; Admin Dose 20 MG; Start 04/20/17 at 12:30 Miscellaneous Information 1 ea NOTE XX ; Start 04/20/17 at 12:30 Glucose (Glutose) 15 gm Q15M PRN PO DECREASED GLUCOSE; Start 04/20/17 at 12:30 Glucose (Glutose) 22.5 gm Q15M PRN PO DECREASED GLUCOSE; Start 04/20/17 at 12: 30 Dextrose (D50w Syringe) 25 ml Q15M PRN IV DECREASED GLUCOSE; Start 04/20/17 at 12:30 Dextrose (D50w Syringe) 50 ml Q15M PRN IV DECREASED GLUCOSE; Start 04/20/17 at 12:30 Glucagon (Glucagen) 1 mg Q15M PRN IM DECREASED GLUCOSE; Start 04/20/17 at 12:30 Glucose (Glutose) 15 gm Q15M PRN BUCCAL DECREASED GLUCOSE; Start 04/20/17 at 12 :30 Diagnostic Test (Pha) (Accu-Chek) 1 ea 02 XX Last administered on 04/27/17 02: 01; Admin Dose 1 EA; Start 04/21/17 at 02:00 Atorvastatin Calcium (Lipitor) 40 mg QHS PO Last administered on 04/27/17 20: 07; Admin Dose 40 MG; Start 04/20/17 at 21:00 Enoxaparin Sodium (Lovenox) 40 mg DAILY SC Last administered on 04/28/17 09:01 ; Admin Dose 40 MG; Start 04/20/17 at 16:48 Isosorbide Mononitrate (Imdur) 30 mg DAILY PO Last administered on 04/28/17 08 :52; Admin Dose 30 MG; Start 04/21/17 at 09:00 Carvedilol (Coreg) 12.5 mg BID PO Last administered on 04/28/17 08:53; Admin Dose 12.5 MG; Start 04/21/17 at 21:00 Clonidine (Catapres) 0.1 mg Q6 PRN PO For Systolic BP >160 Last administered on 04/24/17 03:48; Admin Dose 0.1 MG; Start 04/24/17 at 00:30 Insulin Glargine (Lantus) 30 unit QHS SC Last administered on 04/27/17 20:18; Admin Dose 30 UNIT; Start 04/26/17 at 21:00 Nifedipine (Procardia Xl) 90 mg DAILY PO Last administered on 04/28/17 08:52; Admin Dose 90 MG; Start 04/28/17 at 09:00 Prednisone (Prednisone) 5 mg DAILY PO ; Start 04/28/17 at 15:00 DERRICK MONTES Apr 28, 2017 17:53
[2017-04-28] MEDS: INSULIN GLARGINE [LANtus] 3 ML PEN SC SCH (20:25)
[2017-04-28] MEDS: ATORVASTATIN 40 MG TAB PO SCH (20:26)
[2017-04-29] VITALS (12 sets, daily range): BP systolic 109–162; BP diastolic 51–71; PULSE 44–98; RESP 18–20
[2017-04-29] MEDS: ACCU-CHEK XX SCH (02:19)
[2017-04-29] MEDS: predniSONE 5 MG TAB PO SCH (08:06)
[2017-04-29] MEDS: LINAGLIPTIN 5 MG TABLET PO SCH (08:06)
[2017-04-29] MEDS: ALLOPURINOL 100 MG TAB PO SCH (08:06)
[2017-04-29] MEDS: DOCUSATE SODIUM 100 MG CAP PO SCH ×2 (08:06→21:00)
[2017-04-29] MEDS: FUROSEMIDE 20 MG TAB PO SCH (08:07)
[2017-04-29] MEDS: PANTOPRAZOLE (EC) 40 MG TAB PO SCH (08:07)
[2017-04-29] MEDS: ISOSORBIDE MONONITRATE(SR)30 MG TAB PO SCH (08:07)
[2017-04-29] MEDS: NIFEdipine (XL) 90 MG TAB PO SCH (08:07)
[2017-04-29] MEDS: INSULIN ASPART [NOVOLOG] 3 ML PEN SC SCH ×7 (08:08→21:14)
[2017-04-29] MEDS: ENOXAPARIN 40 MG/0.4 ML SYG SC SCH (08:10)
[2017-04-29] MEDS ORDERED: predniSONE 10 MG TAB PO SCH (09:00)
[2017-04-29] MEDS: COLCHICINE 0.6 MG TAB PO SCH (11:51)
[2017-04-29] MEDS: hydrALAzine 20 MG INJ IV PRN (15:21)
--- NOTE | 2017-04-29 16:23 | CONS ---
Date/Time of Note Date/Time of Note DATE: 04/29/17 TIME: 16:22 Assessment/Plan Assessment/Plan Additional Assessment/Plan 1. acute kidney injury due to prerenal azotemia 2. Chest pain 3. h/o CAD s/p CABG 4. Hypertension- not optimally controlled 5. hyperlipidemia 6. Diabetes melitus 7. 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 Left knee pain and swelling Plan: continue current Chest pain work up, s/p Orthopedic evaluation for left knee pain and swelling - stopped lisinopril on 04/21/17 - Cr 1.62 yesterday, no labs today to review ye t continue hydrlazine, and Clonidine for BP control will use IV hydrlaszine prn , -on Procardia XL to 90mg po daily - BP controlled IV abx ceftriaxone will follow up Consultation Date/Type/Reason Admit Date/Time Apr 20, 2017 at 10:12 Initial Consult Date 04/20/17 Type of Consultation: NEPHROLOGY Referring Provider: SURENDRA ROSE MD Exam/Review of Systems Vital Signs Vitals Vital Signs Date Time Temp Pulse Resp B/P Pulse Ox O2 Delivery O2 Flow Rate FiO2 04/29/17 16:20 70 143/60 04/29/17 15:44 98.3 18 95 04/29/17 15:20 Room Air Intake and Output 04/28/17 04/28/17 04/29/17 15:00 23:00 07:00 Intake Total 1500 ml 200 ml Output Total 800 ml Balance 1500 ml -600 ml Exam Constitutional: alert Respiratory: clear to auscultation, diminished breath sounds, normal air movement Cardiovascular: nl pulses, regular rate and rhythm Gastrointestinal: non-tender, soft Musculoskeletal: nl extremities to inspection Neurological: [employer] II-XII intact, nl mental status, nl speech, nl strength Skin: nl turgor Lymph: nl lymph nodes Results Result Diagram: 04/28/17 0703 04/28/17 0703 Results 24 hrs Laboratory Tests Test 04/28/17 17:09 04/28/17 20:22 04/29/17 02:18 04/29/17 07:55 Bedside Glucose 173 271 H 168 150 Test 04/29/17 11:41 Bedside Glucose 231 H Medications Medications Current Medications Allopurinol (Zyloprim) 100 mg DAILY PO Last administered on 04/29/17t 08:06; Admin Dose 100 MG; Start 04/21/17 at 09:00 Clonidine (Catapres) 0.2 mg Q8 PO Last administered on 04/29/17 14:01; Admin Dose 0.2 MG; Start 04/20/17 at 14:00 Furosemide (Lasix) 10 mg DAILY PO Last administered on 04/29/17 08:07; Admin Dose 10 MG; Start 04/21/17 at 09:00 Hydralazine HCl (Apresoline) 100 mg Q8 PO Last administered on 04/29/17 14:01 ; Admin Dose 100 MG; Start 04/20/17 at 14:00 Acetaminophen/ Hydrocodone Bitart ([place] (5/325)) 1 tab PRN PO Last administered on 04/23/17 18:48; Admin Dose 1 TAB; Start 04/20/17 at 12:00 Linagliptin (Tradjenta) 5 mg DAILY PO Last administered on 04/29/17 08:06; Admin Dose 5 MG; Start 04/21/17 at 09:00 Nitroglycerin (Nitroglycerin (Sl Tab) 0.4 Mg) 1 tab PRN SL ; Start 04/20/17 at 12:00 Pantoprazole (Protonix Tab) 40 mg DAILY PO Last administered on 04/29/17 08:07 ; Admin Dose 40 MG; Start 04/20/17 at 12:00 Ondansetron HCl (Zofran Inj) 4 mg Q6 PRN IV NAUSEA AND/OR VOMITING; Start 04/20 at 12:00 Docusate Sodium (Colace) 100 mg BID PO Last administered on 04/29/17 08:06; Admin Dose 100 MG; Start 04/20/17 at 21:00 Acetaminophen (Tylenol Tab) 650 mg Q6 PRN PO PAIN AND OR ELEVATED TEMP Last administered on 04/22/17 21:13; Admin Dose 650 MG; Start 04/20/17 at 12:00 Morphine Sulfate (morphine) 2 mg Q6H PRN IV PAIN LEVEL 6-10; Start 04/20/17 at 12:00 Hydralazine HCl (Apresoline) 20 mg Q6 PRN IV ELEVATED BLOOD PRESSURE Last administered on 04/29/17 15:21; Admin Dose 20 MG; Start 04/20/17 at 12:30 Miscellaneous Information 1 ea NOTE XX ; Start 04/20/17 at 12:30 Glucose (Glutose) 15 gm Q15M PRN PO DECREASED GLUCOSE; Start 04/20/17 at 12:30 Glucose (Glutose) 22.5 gm Q15M PRN PO DECREASED GLUCOSE; Start 04/20/17 at 12: 30 Dextrose (D50w Syringe) 25 ml Q15M PRN IV DECREASED GLUCOSE; Start 04/20/17 at 12:30 Dextrose (D50w Syringe) 50 ml Q15M PRN IV DECREASED GLUCOSE; Start 04/20/17 at 12:30 Glucagon (Glucagen) 1 mg Q15M PRN IM DECREASED GLUCOSE; Start 04/20/17 at 12:30 Glucose (Glutose) 15 gm Q15M PRN BUCCAL DECREASED GLUCOSE; Start 04/20/17 at 12 :30 Diagnostic Test (Pha) (Accu-Chek) 1 ea 02 XX Last administered on 04/29/17 02: 19; Admin Dose 1 EA; Start 04/21/17 at 02:00 Atorvastatin Calcium (Lipitor) 40 mg QHS PO Last administered on 04/28/17 20: 26; Admin Dose 40 MG; Start 04/20/17 at 21:00 Enoxaparin Sodium (Lovenox) 40 mg DAILY SC Last administered on 04/29/17 08:10 ; Admin Dose 40 MG; Start 04/20/17 at 16:48 Isosorbide Mononitrate (Imdur) 30 mg DAILY PO Last administered on 04/29/17 08 :07; Admin Dose 30 MG; Start 04/21/17 at 09:00 Clonidine (Catapres) 0.1 mg Q6 PRN PO For Systolic BP >160 Last administered on 04/24/17 03:48; Admin Dose 0.1 MG; Start 04/24/17 at 00:30 Insulin Glargine (Lantus) 30 unit QHS SC Last administered on 04/28/17 20:25; Admin Dose 30 UNIT; Start 04/26/17 at 21:00 Nifedipine (Procardia Xl) 90 mg DAILY PO Last administered on 04/29/17 08:07; Admin Dose 90 MG; Start 04/28/17 at 09:00 Prednisone (Prednisone) 5 mg DAILY PO Last administered on 04/29/17 08:06; Admin Dose 5 MG; Start 04/28/17 at 15:00 Carvedilol (Coreg) 6.25 mg BID PO Last administered on 04/29/17 08:06; Admin Dose 6.25 MG; Start 04/28/17 at 21:00 LORENZA GIBSON MD Apr 29, 2017 16:23
--- NOTE | 2017-04-29 18:16 | CONS ---
Date/Time of Note Date/Time of Note DATE: 04/29/17 TIME: 18:16 Assessment/Plan Assessment/Plan Chief Complaint/Hosp Course - Chest pain. Serial troponins x3 negative. Small to moderate size predominantly nonreversible perfusion defect in the inferior wall noted on Lexiscan. - CAD s/p CABG in 2012 - Atrial flutter - Accelerated HTN - JOSE - T2DM - Hgb A1c 8.2% - HLD - Left knee gout flare - Fever on 04/22/2017 likely related to gout, resolved - Recurrent leukocytosis, likely reactive, and partly due to steroid margination Recommendations: - Monitor closely off antibiotic. - serial procalc and wbc Problems: Consultation Date/Type/Reason Admit Date/Time Apr 20, 2017 at 10:12 Initial Consult Date 04/20/17 Type of Consultation: id Referring Provider: SURENDRA ROSE MD Exam/Review of Systems Vital Signs Vitals Vital Signs Date Time Temp Pulse Resp B/P Pulse Ox O2 Delivery O2 Flow Rate FiO2 04/29/17 16:20 70 143/60 04/29/17 15:44 98.3 18 95 04/29/17 15:20 Room Air Intake and Output 04/28/17 04/28/17 04/29/17 15:00 23:00 07:00 Intake Total 1500 ml 200 ml Output Total 800 ml Balance 1500 ml -600 ml Exam Constitutional: alert, oriented, well developed Psych: nl mood/affect, no complaints Head: atraumatic, normocephalic Eyes: EOMI, PERRL, nl conjunctiva, nl lids, nl sclera ENMT: nl external ears & nose, nl lips & teeth, nl nasal mucosa & septum Respiratory: clear to auscultation, normal air movement Cardiovascular: nl pulses, regular rate and rhythm Gastrointestinal: nl liver, spleen, non-tender, soft Results Result Diagram: 04/28/17 0703 04/28/17 0703 Results 24 hrs Laboratory Tests Test 04/28/17 20:22 04/29/17 02:18 04/29/17 07:55 04/29/17 11:41 Bedside Glucose 271 H 168 150 231 H Test 04/29/17 17:16 Bedside Glucose 157 Medications Medications Current Medications Allopurinol (Zyloprim) 100 mg DAILY PO Last administered on 04/29/17t 08:06; Admin Dose 100 MG; Start 04/21/17 at 09:00 Clonidine (Catapres) 0.2 mg Q8 PO Last administered on 04/29/17 14:01; Admin Dose 0.2 MG; Start 04/20/17 at 14:00 Furosemide (Lasix) 10 mg DAILY PO Last administered on 04/29/17 08:07; Admin Dose 10 MG; Start 04/21/17 at 09:00 Hydralazine HCl (Apresoline) 100 mg Q8 PO Last administered on 04/29/17 14:01 ; Admin Dose 100 MG; Start 04/20/17 at 14:00 Acetaminophen/ Hydrocodone Bitart ([place] (5/325)) 1 tab PRN PO Last administered on 04/23/17 18:48; Admin Dose 1 TAB; Start 04/20/17 at 12:00 Linagliptin (Tradjenta) 5 mg DAILY PO Last administered on 04/29/17 08:06; Admin Dose 5 MG; Start 04/21/17 at 09:00 Nitroglycerin (Nitroglycerin (Sl Tab) 0.4 Mg) 1 tab PRN SL ; Start 04/20/17 at 12:00 Pantoprazole (Protonix Tab) 40 mg DAILY PO Last administered on 04/29/17 08:07 ; Admin Dose 40 MG; Start 04/20/17 at 12:00 Ondansetron HCl (Zofran Inj) 4 mg Q6 PRN IV NAUSEA AND/OR VOMITING; Start 04/20 at 12:00 Docusate Sodium (Colace) 100 mg BID PO Last administered on 04/29/17 08:06; Admin Dose 100 MG; Start 04/20/17 at 21:00 Acetaminophen (Tylenol Tab) 650 mg Q6 PRN PO PAIN AND OR ELEVATED TEMP Last administered on 04/22/17 21:13; Admin Dose 650 MG; Start 04/20/17 at 12:00 Morphine Sulfate (morphine) 2 mg Q6H PRN IV PAIN LEVEL 6-10; Start 04/20/17 at 12:00 Hydralazine HCl (Apresoline) 20 mg Q6 PRN IV ELEVATED BLOOD PRESSURE Last administered on 04/29/17 15:21; Admin Dose 20 MG; Start 04/20/17 at 12:30 Miscellaneous Information 1 ea NOTE XX ; Start 04/20/17 at 12:30 Glucose (Glutose) 15 gm Q15M PRN PO DECREASED GLUCOSE; Start 04/20/17 at 12:30 Glucose (Glutose) 22.5 gm Q15M PRN PO DECREASED GLUCOSE; Start 04/20/17 at 12: 30 Dextrose (D50w Syringe) 25 ml Q15M PRN IV DECREASED GLUCOSE; Start 04/20/17 at 12:30 Dextrose (D50w Syringe) 50 ml Q15M PRN IV DECREASED GLUCOSE; Start 04/20/17 at 12:30 Glucagon (Glucagen) 1 mg Q15M PRN IM DECREASED GLUCOSE; Start 04/20/17 at 12:30 Glucose (Glutose) 15 gm Q15M PRN BUCCAL DECREASED GLUCOSE; Start 04/20/17 at 12 :30 Diagnostic Test (Pha) (Accu-Chek) 1 ea 02 XX Last administered on 04/29/17 02: 19; Admin Dose 1 EA; Start 04/21/17 at 02:00 Atorvastatin Calcium (Lipitor) 40 mg QHS PO Last administered on 04/28/17 20: 26; Admin Dose 40 MG; Start 04/20/17 at 21:00 Enoxaparin Sodium (Lovenox) 40 mg DAILY SC Last administered on 04/29/17 08:10 ; Admin Dose 40 MG; Start 04/20/17 at 16:48 Isosorbide Mononitrate (Imdur) 30 mg DAILY PO Last administered on 04/29/17 08 :07; Admin Dose 30 MG; Start 04/21/17 at 09:00 Clonidine (Catapres) 0.1 mg Q6 PRN PO For Systolic BP >160 Last administered on 04/24/17 03:48; Admin Dose 0.1 MG; Start 04/24/17 at 00:30 Insulin Glargine (Lantus) 30 unit QHS SC Last administered on 04/28/17 20:25; Admin Dose 30 UNIT; Start 04/26/17 at 21:00 Nifedipine (Procardia Xl) 90 mg DAILY PO Last administered on 04/29/17 08:07; Admin Dose 90 MG; Start 04/28/17 at 09:00 Prednisone (Prednisone) 5 mg DAILY PO Last administered on 04/29/17 08:06; Admin Dose 5 MG; Start 04/28/17 at 15:00 Carvedilol (Coreg) 6.25 mg BID PO Last administered on 04/29/17t 08:06; Admin Dose 6.25 MG; Start 04/28/17 at 21:00 GRACY PABLO MD Apr 29, 2017 18:16
--- NOTE | 2017-04-29 19:07 | CONS ---
Date/Time of Note Date/Time of Note DATE: 04/29/17 TIME: 19:05 Assessment/Plan Assessment/Plan Chief Complaint/Hosp Course IMPRESSION: 1. Chest pain. Assess for acute coronary syndrome with negative troponins x3. Lexiscan 04/22 with EF 45%/no ischemia 2. Atrial flutter with some slow ventricular response at times down to the 30-40s on beta raffi 3. Abnormal electrocardiogram with nonspecific ST and T-wave abnormalities. 4. Coronary artery disease, status post coronary artery bypass graft surgery 2012. 5. Dyslipidemia. 6. Gout. Recc: -Tele -serial ecg's -Continue hydralazine/procardia XL -decrease dose of coreg and follow HR closely -Continue colchicine Problems: Consultation Date/Type/Reason Admit Date/Time Apr 20, 2017 at 10:12 Initial Consult Date 04/20/17 Type of Consultation: cardiology Reason for Consultation chest pain/AFL/bradycardia Referring Provider: SURENDRA ROSE MD Exam/Review of Systems Vital Signs Vitals Vital Signs Date Time Temp Pulse Resp B/P Pulse Ox O2 Delivery O2 Flow Rate FiO2 04/29/17 16:20 70 143/60 04/29/17 15:44 98.3 18 95 04/29/17 15:20 Room Air Intake and Output 04/28/17 04/28/17 04/29/17 15:00 23:00 07:00 Intake Total 1500 ml 200 ml Output Total 800 ml Balance 1500 ml -600 ml Exam Review of Systems: CONSTITUTIONAL: No fevers, chills. PULMONARY: No sob CARDIOVASCULAR: No chest pain/palpitations GASTROINTESTINAL: No nausea/vomiting. GENITOURINARY: No hematuria/dysuria. MUSCULOSKELETAL: No myagias/arthalgias. PSYCHIATRIC: The patient denies depression. NEUROLOGIC: No weakness Constitutional: alert, oriented Psych: no complaints Head: normocephalic ENMT: mucosa pink and moist Neck: jvd, supple Respiratory: diminished breath sounds Cardiovascular: irregular rhythm Gastrointestinal: non-tender, soft Musculoskeletal: muscle tone (normal) Extremities: edema (none) Neurological: other (No focal deficits) Results Result Diagram: 04/28/17 0703 04/28/17 0703 Results 24 hrs Laboratory Tests Test 04/28/17 20:22 04/29/17 02:18 04/29/17 07:55 04/29/17 11:41 Bedside Glucose 271 H 168 150 231 H Test 04/29/17 17:16 Bedside Glucose 157 Medications Medications Current Medications Allopurinol (Zyloprim) 100 mg DAILY PO Last administered on 04/29/17 08:06; Admin Dose 100 MG; Start 04/21/17 at 09:00 Clonidine (Catapres) 0.2 mg Q8 PO Last administered on 04/29/17 14:01; Admin Dose 0.2 MG; Start 04/20/17 at 14:00 Furosemide (Lasix) 10 mg DAILY PO Last administered on 04/29/17 08:07; Admin Dose 10 MG; Start 04/21/17 at 09:00 Hydralazine HCl (Apresoline) 100 mg Q8 PO Last administered on 04/29/17 14:01 ; Admin Dose 100 MG; Start 04/20/17 at 14:00 Acetaminophen/ Hydrocodone Bitart ([place] (5/325)) 1 tab PRN PO Last administered on 04/23/17 18:48; Admin Dose 1 TAB; Start 04/20/17 at 12:00 Linagliptin (Tradjenta) 5 mg DAILY PO Last administered on 04/29/17 08:06; Admin Dose 5 MG; Start 04/21/17 at 09:00 Nitroglycerin (Nitroglycerin (Sl Tab) 0.4 Mg) 1 tab PRN SL ; Start 04/20/17 at 12:00 Pantoprazole (Protonix Tab) 40 mg DAILY PO Last administered on 04/29/17 08:07 ; Admin Dose 40 MG; Start 04/20/17 at 12:00 Ondansetron HCl (Zofran Inj) 4 mg Q6 PRN IV NAUSEA AND/OR VOMITING; Start 04/20 at 12:00 Docusate Sodium (Colace) 100 mg BID PO Last administered on 04/29/17 08:06; Admin Dose 100 MG; Start 04/20/17 at 21:00 Acetaminophen (Tylenol Tab) 650 mg Q6 PRN PO PAIN AND OR ELEVATED TEMP Last administered on 04/22/17 21:13; Admin Dose 650 MG; Start 04/20/17 at 12:00 Morphine Sulfate (morphine) 2 mg Q6H PRN IV PAIN LEVEL 6-10; Start 04/20/17 at 12:00 Hydralazine HCl (Apresoline) 20 mg Q6 PRN IV ELEVATED BLOOD PRESSURE Last administered on 04/29/17 15:21; Admin Dose 20 MG; Start 04/20/17 at 12:30 Miscellaneous Information 1 ea NOTE XX ; Start 04/20/17 at 12:30 Glucose (Glutose) 15 gm Q15M PRN PO DECREASED GLUCOSE; Start 04/20/17 at 12:30 Glucose (Glutose) 22.5 gm Q15M PRN PO DECREASED GLUCOSE; Start 04/20/17 at 12: 30 Dextrose (D50w Syringe) 25 ml Q15M PRN IV DECREASED GLUCOSE; Start 04/20/17 at 12:30 Dextrose (D50w Syringe) 50 ml Q15M PRN IV DECREASED GLUCOSE; Start 04/20/17 at 12:30 Glucagon (Glucagen) 1 mg Q15M PRN IM DECREASED GLUCOSE; Start 04/20/17 at 12:30 Glucose (Glutose) 15 gm Q15M PRN BUCCAL DECREASED GLUCOSE; Start 04/20/17 at 12 :30 Diagnostic Test (Pha) (Accu-Chek) 1 ea 02 XX Last administered on 04/29/17 02: 19; Admin Dose 1 EA; Start 04/21/17 at 02:00 Atorvastatin Calcium (Lipitor) 40 mg QHS PO Last administered on 04/28/17 20: 26; Admin Dose 40 MG; Start 04/20/17 at 21:00 Enoxaparin Sodium (Lovenox) 40 mg DAILY SC Last administered on 04/29/17 08:10 ; Admin Dose 40 MG; Start 04/20/17 at 16:48 Isosorbide Mononitrate (Imdur) 30 mg DAILY PO Last administered on 04/29/17 08 :07; Admin Dose 30 MG; Start 04/21/17 at 09:00 Clonidine (Catapres) 0.1 mg Q6 PRN PO For Systolic BP >160 Last administered on 04/24/17 03:48; Admin Dose 0.1 MG; Start 04/24/17 at 00:30 Insulin Glargine (Lantus) 30 unit QHS SC Last administered on 04/28/17 20:25; Admin Dose 30 UNIT; Start 04/26/17 at 21:00 Nifedipine (Procardia Xl) 90 mg DAILY PO Last administered on 04/29/17 08:07; Admin Dose 90 MG; Start 04/28/17 at 09:00 Prednisone (Prednisone) 5 mg DAILY PO Last administered on 04/29/17 08:06; Admin Dose 5 MG; Start 04/28/17 at 15:00 Carvedilol (Coreg) 6.25 mg BID PO Last administered on 04/29/17 08:06; Admin Dose 6.25 MG; Start 04/28/17 at 21:00 DERRICK MONTES Apr 29, 2017 19:07
--- NOTE | 2017-04-29 19:39 | PN ---
Date/Time of Note Date/Time of Note DATE: 04/29/17 TIME: 19:37 Assessment/Plan VTE Prophylaxis VTE Prophylaxis Intervention: SCD's Lines/Catheters IV Catheter Type (from Nrsg): Saline Lock Assessment/Plan Assessment/Plan - HTN, BP medication is optimized by cardiology and on Dr. Montaño is following. - Bradycardia- - meds adjusted by cardiology, will monitor for another day, anticipate discharge tomorrow - Chest pain. negative troponins x3, small mostly irreversible changes on Lexiscan. - Atrial flutter with some slow ventricular response at times down to the 40s on beta raffi. - Coronary artery disease, status post coronary artery bypass graft surgery 2012 , indication management. - Dyslipidemia. - Gout. Status post left knee steroid injection by Dr. Morales, orthopedic surgery - DM. Continue Lantus and pre-meal NovoLog. Further recommendations based on clinical course. Plan of care discussed with Dr. Naranjo. Subjective 24 Hr Interval Summary Free Text/Dictation denies any chest pain, feels better wants to go home, DW Dr Zavala- Bradycardia -- meds adjusted by cardiology, will monitor for another day, anticipate discharge tomorrow. Dw staff Constitutional: improved Respiratory: no complaints Cardiovascular: no complaints Gastrointestinal: no complaints Genitourinary: no complaints Musculoskeletal: no complaints Exam/Review of Systems Vital Signs Vitals Vital Signs Date Time Temp Pulse Resp B/P Pulse Ox O2 Delivery O2 Flow Rate FiO2 04/29/17 19:23 98.4 71 20 148/65 97 04/29/17 15:20 Room Air Intake and Output 04/28/17 04/28/17 04/29/17 15:00 23:00 07:00 Intake Total 1500 ml 200 ml Output Total 800 ml Balance 1500 ml -600 ml Exam Constitutional: alert, oriented, well developed Respiratory: clear to auscultation, normal air movement Cardiovascular: nl pulses, regular rate and rhythm Gastrointestinal: non-tender, soft Musculoskeletal: nl extremities to inspection Extremities: normal pulses Neurological: nl mental status, nl speech Results Result Diagram: 04/28/17 0703 04/28/17 0703 Results 24 hrs Laboratory Tests Test 04/28/17 20:22 04/29/17 02:18 04/29/17 07:55 04/29/17 11:41 Bedside Glucose 271 H 168 150 231 H Test 04/29/17 17:16 Bedside Glucose 157 Medications Medications Current Medications Allopurinol (Zyloprim) 100 mg DAILY PO Last administered on 04/29/17 08:06; Admin Dose 100 MG; Start 04/21/17 at 09:00 Clonidine (Catapres) 0.2 mg Q8 PO Last administered on 04/29/17 14:01; Admin Dose 0.2 MG; Start 04/20/17 at 14:00 Furosemide (Lasix) 10 mg DAILY PO Last administered on 04/29/17 08:07; Admin Dose 10 MG; Start 04/21/17 at 09:00 Hydralazine HCl (Apresoline) 100 mg Q8 PO Last administered on 04/29/17 14:01 ; Admin Dose 100 MG; Start 04/20/17 at 14:00 Acetaminophen/ Hydrocodone Bitart ([place] (5/325)) 1 tab PRN PO Last administered on 04/23/17 18:48; Admin Dose 1 TAB; Start 04/20/17 at 12:00 Linagliptin (Tradjenta) 5 mg DAILY PO Last administered on 04/29/17 08:06; Admin Dose 5 MG; Start 04/21/17 at 09:00 Nitroglycerin (Nitroglycerin (Sl Tab) 0.4 Mg) 1 tab PRN SL ; Start 04/20/17 at 12:00 Pantoprazole (Protonix Tab) 40 mg DAILY PO Last administered on 04/29/17 08:07 ; Admin Dose 40 MG; Start 04/20/17 at 12:00 Ondansetron HCl (Zofran Inj) 4 mg Q6 PRN IV NAUSEA AND/OR VOMITING; Start 04/20 at 12:00 Docusate Sodium (Colace) 100 mg BID PO Last administered on 04/29/17 08:06; Admin Dose 100 MG; Start 04/20/17 at 21:00 Acetaminophen (Tylenol Tab) 650 mg Q6 PRN PO PAIN AND OR ELEVATED TEMP Last administered on 04/22/17 21:13; Admin Dose 650 MG; Start 04/20/17 at 12:00 Morphine Sulfate (morphine) 2 mg Q6H PRN IV PAIN LEVEL 6-10; Start 04/20/17 at 12:00 Hydralazine HCl (Apresoline) 20 mg Q6 PRN IV ELEVATED BLOOD PRESSURE Last administered on 04/29/17 15:21; Admin Dose 20 MG; Start 04/20/17 at 12:30 Miscellaneous Information 1 ea NOTE XX ; Start 04/20/17 at 12:30 Glucose (Glutose) 15 gm Q15M PRN PO DECREASED GLUCOSE; Start 04/20/17 at 12:30 Glucose (Glutose) 22.5 gm Q15M PRN PO DECREASED GLUCOSE; Start 04/20/17 at 12: 30 Dextrose (D50w Syringe) 25 ml Q15M PRN IV DECREASED GLUCOSE; Start 04/20/17 at 12:30 Dextrose (D50w Syringe) 50 ml Q15M PRN IV DECREASED GLUCOSE; Start 04/20/17 at 12:30 Glucagon (Glucagen) 1 mg Q15M PRN IM DECREASED GLUCOSE; Start 04/20/17 at 12:30 Glucose (Glutose) 15 gm Q15M PRN BUCCAL DECREASED GLUCOSE; Start 04/20/17 at 12 :30 Diagnostic Test (Pha) (Accu-Chek) 1 ea 02 XX Last administered on 04/29/17 02: 19; Admin Dose 1 EA; Start 04/21/17 at 02:00 Atorvastatin Calcium (Lipitor) 40 mg QHS PO Last administered on 04/28/17 20: 26; Admin Dose 40 MG; Start 04/20/17 at 21:00 Enoxaparin Sodium (Lovenox) 40 mg DAILY SC Last administered on 04/29/17 08:10 ; Admin Dose 40 MG; Start 04/20/17 at 16:48 Isosorbide Mononitrate (Imdur) 30 mg DAILY PO Last administered on 04/29/17 08 :07; Admin Dose 30 MG; Start 04/21/17 at 09:00 Clonidine (Catapres) 0.1 mg Q6 PRN PO For Systolic BP >160 Last administered on 04/24/17 03:48; Admin Dose 0.1 MG; Start 04/24/17 at 00:30 Insulin Glargine (Lantus) 30 unit QHS SC Last administered on 04/28/17 20:25; Admin Dose 30 UNIT; Start 04/26/17 at 21:00 Prednisone (Prednisone) 5 mg DAILY PO Last administered on 04/29/17 08:06; Admin Dose 5 MG; Start 04/28/17 at 15:00 Carvedilol (Coreg) 3.125 mg BID PO ; Start 04/29/17 at 21:00 Nifedipine (Procardia Xl) 60 mg BID PO ; Start 04/29/17 at 21:00 LOPEZ GONZALEZ Apr 29, 2017 19:39
[2017-04-29] MEDS: ATORVASTATIN 40 MG TAB PO SCH (21:04)
[2017-04-29] MEDS: NIFEdipine (XL) 60 MG TAB PO SCH (21:05)
[2017-04-29 21:06] LABS: BASOPHIL # 0.1 10^3/ul (0.0-0.1); BASOPHILS % 0.6 % (0.0-2.0); EOSINOPHILS # 0.2 10^3/ul (0.0-0.5); HEMOGLOBIN 13.3 g/dl (14.0-18.0); LYMPHOCYTES # 3.1 10^3/ul (0.8-2.9); LYMPHOCYTES % 19.8 % (15.0-51.0); MEAN CORPUSCULAR HGB CONC 33.3 g/dl (32.0-37.0); MEAN CORPUSCULAR VOLUME 90.1 fl (82.0-101.0); MEAN PLATELET VOLUME 10.6 fl (7.4-10.4); MONOCYTE # 1.4 10^3/ul (0.3-0.9); MONOCYTES % 9.2 % (0.0-11.0); NEUTROPHILS % 64.6 % (39.0-77.0); PLATELET COUNT 260 10^3/UL (140-415); RED BLOOD COUNT 4.44 10^6/ul (4.70-6.10); RED CELL DISTRIBUTION WIDTH 12.6 % (11.5-14.5); WHITE BLOOD COUNT 15.5 10^3/ul (4.8-10.8)
[2017-04-29] MEDS: INSULIN GLARGINE [LANtus] 3 ML PEN SC SCH (21:14)
[2017-04-30] VITALS (12 sets, daily range): BP systolic 146–176; BP diastolic 59–78; PULSE 30–82; RESP 16–20
[2017-04-30] MEDS: hydrALAzine 20 MG INJ IV PRN (00:54)
[2017-04-30] MEDS: ACCU-CHEK XX SCH (02:31)
[2017-04-30] MEDS: INSULIN ASPART [NOVOLOG] 3 ML PEN SC SCH ×7 (08:00→19:59)
[2017-04-30] MEDS: DOCUSATE SODIUM 100 MG CAP PO SCH ×2 (08:15→19:51)
[2017-04-30] MEDS: ISOSORBIDE MONONITRATE(SR)30 MG TAB PO SCH (08:17)
[2017-04-30] MEDS: FUROSEMIDE 20 MG TAB PO SCH (08:17)
[2017-04-30] MEDS: NIFEdipine (XL) 60 MG TAB PO SCH ×2 (08:17→19:50)
[2017-04-30] MEDS: predniSONE 5 MG TAB PO SCH (08:18)
[2017-04-30] MEDS: LINAGLIPTIN 5 MG TABLET PO SCH (08:18)
[2017-04-30] MEDS: ALLOPURINOL 100 MG TAB PO SCH (08:18)
[2017-04-30] MEDS: PANTOPRAZOLE (EC) 40 MG TAB PO SCH (08:18)
[2017-04-30] MEDS: ENOXAPARIN 40 MG/0.4 ML SYG SC SCH (08:29)
[2017-04-30 09:29] LABS: CALCIUM 9.6 mg/dl (8.4-10.2); CREATININE 1.57 mg/dl (0.61-1.24); POTASSIUM 4.5 mmol/L (3.5-5.1)
[2017-04-30] MEDS: COLCHICINE 0.6 MG TAB PO SCH (12:00)
--- NOTE | 2017-04-30 14:38 | CONS ---
Date/Time of Note Date/Time of Note DATE: 04/30/17 TIME: 14:36 Assessment/Plan Assessment/Plan Additional Assessment/Plan 1. acute kidney injury due to prerenal azotemia 2. Chest pain 3. h/o CAD s/p CABG 4. Hypertension- not optimally controlled 5. hyperlipidemia 6. Diabetes melitus 7. 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 Left knee pain and swelling Plan: continue current Chest pain work up, s/p Orthopedic evaluation for left knee pain and swelling - stopped lisinopril on 04/21/17 - Cr 1.57 yesterday, HR runs on lo side, BP fluctuates a a lot. Hydralazine 100mg Q 8 hr, Agree with changing procardia XL to 60mg bID, IV hydralazine prn will follow up Consultation Date/Type/Reason Admit Date/Time Apr 20, 2017 at 10:12 Initial Consult Date 04/20/17 Type of Consultation: NEPHROLOGY Referring Provider: SURENDRA ROSE MD Exam/Review of Systems Vital Signs Vitals Vital Signs Date Time Temp Pulse Resp B/P Pulse Ox O2 Delivery O2 Flow Rate FiO2 04/30/17 12:06 98.3 67 19 176/77 99 04/29/17 15:20 Room Air Intake and Output 04/29/17 04/29/17 04/30/17 15:00 23:00 07:00 Intake Total 1200 ml 250 ml Balance 1200 ml 250 ml Exam Constitutional: alert Respiratory: clear to auscultation, diminished breath sounds, normal air movement Cardiovascular: nl pulses, regular rate and rhythm Gastrointestinal: non-tender, soft Musculoskeletal: nl extremities to inspection Neurological: DATA ANALYSIS INTERN II-XII intact, nl mental status, nl speech, nl strength Results Result Diagram: 04/29/17203004/30/17 0632 Results 24 hrs Laboratory Tests Test 04/29/17 17:16 04/29/17 20:31 04/29/17 21:07 04/30/17 02:09 Bedside Glucose 157 219 134 White Blood Count 15.5 #H Red Blood Count 4.44 L Hemoglobin 13.3 L Hematocrit 40.0 L Mean Corpuscular Volume 90.1 Mean Corpuscular Hemoglobin 30.0 Mean Corpuscular Hemoglobin Concent 33.3 Red Cell Distribution Width 12.6 Platelet Count 260 Mean Platelet Volume 10.6 H Neutrophils % 64.6 Lymphocytes % 19.8 Monocytes % 9.2 Eosinophils % 1.0 Basophils % 0.6 Nucleated Red Blood Cells % 0.0 Neutrophils # 10.0 H Lymphocytes # 3.1 H Monocytes # 1.4 H Eosinophils # 0.2 Basophils # 0.1 Nucleated Red Blood Cells # 0.0 Test 04/30/17 06:32 04/30/17 08:12 04/30/17 11:58 Sodium Level 137 Potassium Level 4.5 Chloride Level 108 Carbon Dioxide Level 21 Anion Gap 13 Blood Urea Nitrogen 38 H Creatinine 1.57 H Glucose Level 126 # Calcium Level 9.6 Bedside Glucose 122 140 Medications Medications Current Medications Allopurinol (Zyloprim) 100 mg DAILY PO Last administered on 04/30/17 08:18; Admin Dose 100 MG; Start 04/21/17 at 09:00 Clonidine (Catapres) 0.2 mg Q8 PO Last administered on 04/30/17 13:15; Admin Dose 0.2 MG; Start 04/20/17 at 14:00 Furosemide (Lasix) 10 mg DAILY PO Last administered on 04/30/17 08:17; Admin Dose 10 MG; Start 04/21/17 at 09:00 Hydralazine HCl (Apresoline) 100 mg Q8 PO Last administered on 04/30/17 13:15 ; Admin Dose 100 MG; Start 04/20/17 at 14:00 Acetaminophen/ Hydrocodone Bitart ([place] (5/325)) 1 tab PRN PO Last administered on 04/23/17 18:48; Admin Dose 1 TAB; Start 04/20/17 at 12:00 Linagliptin (Tradjenta) 5 mg DAILY PO Last administered on 04/30/17 08:18; Admin Dose 5 MG; Start 04/21/17 at 09:00 Nitroglycerin (Nitroglycerin (Sl Tab) 0.4 Mg) 1 tab PRN SL ; Start 04/20/17 at 12:00 Pantoprazole (Protonix Tab) 40 mg DAILY PO Last administered on 04/30/17 08:18 ; Admin Dose 40 MG; Start 04/20/17 at 12:00 Ondansetron HCl (Zofran Inj) 4 mg Q6 PRN IV NAUSEA AND/OR VOMITING; Start 04/20 at 12:00 Docusate Sodium (Colace) 100 mg BID PO Last administered on 04/30/17 08:15; Admin Dose 100 MG; Start 04/20/17 at 21:00 Acetaminophen (Tylenol Tab) 650 mg Q6 PRN PO PAIN AND OR ELEVATED TEMP Last administered on 04/22/17 21:13; Admin Dose 650 MG; Start 04/20/17 at 12:00 Morphine Sulfate (morphine) 2 mg Q6H PRN IV PAIN LEVEL 6-10; Start 04/20/17 at 12:00 Hydralazine HCl (Apresoline) 20 mg Q6 PRN IV ELEVATED BLOOD PRESSURE Last administered on 04/30/17 00:54; Admin Dose 20 MG; Start 04/20/17 at 12:30 Miscellaneous Information 1 ea NOTE XX ; Start 04/20/17 at 12:30 Glucose (Glutose) 15 gm Q15M PRN PO DECREASED GLUCOSE; Start 04/20/17 at 12:30 Glucose (Glutose) 22.5 gm Q15M PRN PO DECREASED GLUCOSE; Start 04/20/17 at 12: 30 Dextrose (D50w Syringe) 25 ml Q15M PRN IV DECREASED GLUCOSE; Start 04/20/17 at 12:30 Dextrose (D50w Syringe) 50 ml Q15M PRN IV DECREASED GLUCOSE; Start 04/20/17 at 12:30 Glucagon (Glucagen) 1 mg Q15M PRN IM DECREASED GLUCOSE; Start 04/20/17 at 12:30 Glucose (Glutose) 15 gm Q15M PRN BUCCAL DECREASED GLUCOSE; Start 04/20/17 at 12 :30 Diagnostic Test (Pha) (Accu-Chek) 1 ea 02 XX Last administered on 04/30/17 02: 31; Admin Dose 1 EA; Start 04/21/17 at 02:00 Atorvastatin Calcium (Lipitor) 40 mg QHS PO Last administered on 04/29/17 21: 04; Admin Dose 40 MG; Start 04/20/17 at 21:00 Enoxaparin Sodium (Lovenox) 40 mg DAILY SC Last administered on 04/30/17 08:29 ; Admin Dose 40 MG; Start 04/20/17 at 16:48 Isosorbide Mononitrate (Imdur) 30 mg DAILY PO Last administered on 04/30/17 08 :17; Admin Dose 30 MG; Start 04/21/17 at 09:00 Clonidine (Catapres) 0.1 mg Q6 PRN PO For Systolic BP >160 Last administered on 04/24/17 03:48; Admin Dose 0.1 MG; Start 04/24/17 at 00:30 Insulin Glargine (Lantus) 30 unit QHS SC Last administered on 04/29/17 21:14; Admin Dose 30 UNIT; Start 04/26/17 at 21:00 Prednisone (Prednisone) 5 mg DAILY PO Last administered on 04/30/17 08:18; Admin Dose 5 MG; Start 04/28/17 at 15:00 Carvedilol (Coreg) 3.125 mg BID PO Last administered on 04/29/17 21:04; Admin Dose 3.125 MG; Start 04/29/17 at 21:00 Nifedipine (Procardia Xl) 60 mg BID PO Last administered on 04/30/17 08:17; Admin Dose 60 MG; Start 04/29/17 at 21:00 Doxazosin Mesylate (Cardura) 2 mg BID PO ; Start 04/30/17 at 21:00; Status LORENZA PARR MD Apr 30, 2017 14:38
--- NOTE | 2017-04-30 14:47 | CONS ---
Date/Time of Note Date/Time of Note DATE: 04/30/17 TIME: 14:46 Assessment/Plan Assessment/Plan Chief Complaint/Hosp Course - Chest pain. Serial troponins x3 negative. Small to moderate size predominantly nonreversible perfusion defect in the inferior wall noted on Lexiscan. - CAD s/p CABG in 2012 - Atrial flutter - Accelerated HTN - JOSE - T2DM - Hgb A1c 8.2% - HLD - Left knee gout flare - resolved - Fever on 04/22/2017 likely related to gout, resolved - Recurrent leukocytosis, likely reactive, and partly due to steroid margination (remains afebrile). Procalcitonin 0.16. Recommendations: - Monitor closely off antibiotic. - Serial procalcitonin (ordered for AM) and WBC Management d/w pt, RN Camryn, and Dr. Castle Problems: Consultation Date/Type/Reason Admit Date/Time Apr 20, 2017 at 10:12 Initial Consult Date 04/24/17 Type of Consultation: Infectious Disease Referring Provider: SURENDRA ROSE MD 24 HR Interval Summary Free Text/Dictation Pt with elevated BP and low HR (30's) but asymptomatic per d/w nursing staff. Denies f/c, CP, SOB, abd pain, n/v/d, dysuria. Exam/Review of Systems Vital Signs Vitals Vital Signs Date Time Temp Pulse Resp B/P Pulse Ox O2 Delivery O2 Flow Rate FiO2 04/30/17 12:06 98.3 67 19 176/77 99 04/29/17 15:20 Room Air Intake and Output 04/29/17 04/29/17 04/30/17 15:00 23:00 07:00 Intake Total 1200 ml 250 ml Balance 1200 ml 250 ml Exam Constitutional: alert, obese, oriented, well developed Head: atraumatic, normocephalic Eyes: nl sclera Neck: supple Respiratory: clear to auscultation, normal air movement Cardiovascular: nl pulses, regular rate and rhythm Gastrointestinal: non-tender, soft Musculoskeletal: nl extremities to inspection Extremities: normal pulses, No cyanosis, No edema Neurological: nl mental status, nl speech Skin: nl turgor, No rash or lesions Results Result Diagram: 04/29/17203004/30/17 0632 Results 24 hrs Laboratory Tests Test 04/29/17 17:16 04/29/17 20:31 04/29/17 21:07 04/30/17 02:09 Bedside Glucose 157 219 134 White Blood Count 15.5 #H Red Blood Count 4.44 L Hemoglobin 13.3 L Hematocrit 40.0 L Mean Corpuscular Volume 90.1 Mean Corpuscular Hemoglobin 30.0 Mean Corpuscular Hemoglobin Concent 33.3 Red Cell Distribution Width 12.6 Platelet Count 260 Mean Platelet Volume 10.6 H Neutrophils % 64.6 Lymphocytes % 19.8 Monocytes % 9.2 Eosinophils % 1.0 Basophils % 0.6 Nucleated Red Blood Cells % 0.0 Neutrophils # 10.0 H Lymphocytes # 3.1 H Monocytes # 1.4 H Eosinophils # 0.2 Basophils # 0.1 Nucleated Red Blood Cells # 0.0 Test 04/30/17 06:32 04/30/17 08:12 04/30/17 11:58 Sodium Level 137 Potassium Level 4.5 Chloride Level 108 Carbon Dioxide Level 21 Anion Gap 13 Blood Urea Nitrogen 38 H Creatinine 1.57 H Glucose Level 126 # Calcium Level 9.6 Bedside Glucose 122 140 Medications Medications Current Medications Allopurinol (Zyloprim) 100 mg DAILY PO Last administered on 04/30/17 08:18; Admin Dose 100 MG; Start 04/21/17 at 09:00 Clonidine (Catapres) 0.2 mg Q8 PO Last administered on 04/30/17 13:15; Admin Dose 0.2 MG; Start 04/20/17 at 14:00 Furosemide (Lasix) 10 mg DAILY PO Last administered on 04/30/17 08:17; Admin Dose 10 MG; Start 04/21/17 at 09:00 Hydralazine HCl (Apresoline) 100 mg Q8 PO Last administered on 04/30/17 13:15 ; Admin Dose 100 MG; Start 04/20/17 at 14:00 Acetaminophen/ Hydrocodone Bitart ([place] (5/325)) 1 tab PRN PO Last administered on 04/23/17 18:48; Admin Dose 1 TAB; Start 04/20/17 at 12:00 Linagliptin (Tradjenta) 5 mg DAILY PO Last administered on 04/30/17 08:18; Admin Dose 5 MG; Start 04/21/17 at 09:00 Nitroglycerin (Nitroglycerin (Sl Tab) 0.4 Mg) 1 tab PRN SL ; Start 04/20/17 at 12:00 Pantoprazole (Protonix Tab) 40 mg DAILY PO Last administered on 04/30/17 08:18 ; Admin Dose 40 MG; Start 04/20/17 at 12:00 Ondansetron HCl (Zofran Inj) 4 mg Q6 PRN IV NAUSEA AND/OR VOMITING; Start 04/20 at 12:00 Docusate Sodium (Colace) 100 mg BID PO Last administered on 04/30/17 08:15; Admin Dose 100 MG; Start 04/20/17 at 21:00 Acetaminophen (Tylenol Tab) 650 mg Q6 PRN PO PAIN AND OR ELEVATED TEMP Last administered on 04/22/17 21:13; Admin Dose 650 MG; Start 04/20/17 at 12:00 Morphine Sulfate (morphine) 2 mg Q6H PRN IV PAIN LEVEL 6-10; Start 04/20/17 at 12:00 Hydralazine HCl (Apresoline) 20 mg Q6 PRN IV ELEVATED BLOOD PRESSURE Last administered on 04/30/17 00:54; Admin Dose 20 MG; Start 04/20/17 at 12:30 Miscellaneous Information 1 ea NOTE XX ; Start 04/20/17 at 12:30 Glucose (Glutose) 15 gm Q15M PRN PO DECREASED GLUCOSE; Start 04/20/17 at 12:30 Glucose (Glutose) 22.5 gm Q15M PRN PO DECREASED GLUCOSE; Start 04/20/17 at 12: 30 Dextrose (D50w Syringe) 25 ml Q15M PRN IV DECREASED GLUCOSE; Start 04/20/17 at 12:30 Dextrose (D50w Syringe) 50 ml Q15M PRN IV DECREASED GLUCOSE; Start 04/20/17 at 12:30 Glucagon (Glucagen) 1 mg Q15M PRN IM DECREASED GLUCOSE; Start 04/20/17 at 12:30 Glucose (Glutose) 15 gm Q15M PRN BUCCAL DECREASED GLUCOSE; Start 04/20/17 at 12 :30 Diagnostic Test (Pha) (Accu-Chek) 1 ea 02 XX Last administered on 04/30/17 02: 31; Admin Dose 1 EA; Start 04/21/17 at 02:00 Atorvastatin Calcium (Lipitor) 40 mg QHS PO Last administered on 04/29/17 21: 04; Admin Dose 40 MG; Start 04/20/17 at 21:00 Enoxaparin Sodium (Lovenox) 40 mg DAILY SC Last administered on 04/30/17 08:29 ; Admin Dose 40 MG; Start 04/20/17 at 16:48 Isosorbide Mononitrate (Imdur) 30 mg DAILY PO Last administered on 04/30/17 08 :17; Admin Dose 30 MG; Start 04/21/17 at 09:00 Clonidine (Catapres) 0.1 mg Q6 PRN PO For Systolic BP >160 Last administered on 04/24/17 03:48; Admin Dose 0.1 MG; Start 04/24/17 at 00:30 Insulin Glargine (Lantus) 30 unit QHS SC Last administered on 04/29/17 21:14; Admin Dose 30 UNIT; Start 04/26/17 at 21:00 Prednisone (Prednisone) 5 mg DAILY PO Last administered on 04/30/17 08:18; Admin Dose 5 MG; Start 04/28/17 at 15:00 Carvedilol (Coreg) 3.125 mg BID PO Last administered on 04/29/17 21:04; Admin Dose 3.125 MG; Start 04/29/17 at 21:00 Nifedipine (Procardia Xl) 60 mg BID PO Last administered on 04/30/17 08:17; Admin Dose 60 MG; Start 04/29/17 at 21:00 Doxazosin Mesylate (Cardura) 2 mg BID PO ; Start 04/30/17 at 21:00 ELÍAS ALDRICH NP Apr 30, 2017 14:47
--- NOTE | 2017-04-30 16:33 | CONS ---
Date/Time of Note Date/Time of Note DATE: 04/30/17 TIME: 16:28 Assessment/Plan Assessment/Plan Chief Complaint/Hosp Course IMPRESSION: 1. Chest pain. Assess for acute coronary syndrome with negative troponins x3. Lexiscan 04/22 with EF 45%/no ischemia 2. Atrial flutter with some slow ventricular response at times down to the 30-40s on beta raffi-improved with BB 3. Abnormal electrocardiogram with nonspecific ST and T-wave abnormalities. 4. Coronary artery disease, status post coronary artery bypass graft surgery 2012. 5. Dyslipidemia. 6. Gout. 7.HTN Recc: -Tele -serial ecg's -Continue hydralazine/procardia XL/cardura -Continue colchicine -D/C BB Problems: Consultation Date/Type/Reason Admit Date/Time Apr 20, 2017 at 10:12 Initial Consult Date 04/20/17 Type of Consultation: cardiology Reason for Consultation AFL Referring Provider: SURENDRA ROSE MD Exam/Review of Systems Vital Signs Vitals Vital Signs Date Time Temp Pulse Resp B/P Pulse Ox O2 Delivery O2 Flow Rate FiO2 04/30/17 15:42 98.3 65 19 146/66 96 04/29/17 15:20 Room Air Intake and Output 04/29/17 04/29/17 04/30/17 15:00 23:00 07:00 Intake Total 1200 ml 250 ml Balance 1200 ml 250 ml Exam Review of Systems: CONSTITUTIONAL: No fevers, chills. PULMONARY: No sob CARDIOVASCULAR: No chest pain/palpitations GASTROINTESTINAL: No nausea/vomiting. GENITOURINARY: No hematuria/dysuria. MUSCULOSKELETAL: No myagias/arthalgias. PSYCHIATRIC: The patient denies depression. NEUROLOGIC: No weakness Constitutional: alert, oriented ENMT: mucosa pink and moist Neck: jvd (9 cm water), supple Respiratory: diminished breath sounds (at bases/B) Cardiovascular: regular rate and rhythm Gastrointestinal: non-tender, soft Musculoskeletal: muscle tone (normal) Extremities: edema (none) Neurological: other (No focal deficits) Results Result Diagram: 04/29/17203004/30/17 0632 Results 24 hrs Laboratory Tests Test 04/29/17 17:16 04/29/17 20:31 04/29/17 21:07 04/30/17 02:09 Bedside Glucose 157 219 134 White Blood Count 15.5 #H Red Blood Count 4.44 L Hemoglobin 13.3 L Hematocrit 40.0 L Mean Corpuscular Volume 90.1 Mean Corpuscular Hemoglobin 30.0 Mean Corpuscular Hemoglobin Concent 33.3 Red Cell Distribution Width 12.6 Platelet Count 260 Mean Platelet Volume 10.6 H Neutrophils % 64.6 Lymphocytes % 19.8 Monocytes % 9.2 Eosinophils % 1.0 Basophils % 0.6 Nucleated Red Blood Cells % 0.0 Neutrophils # 10.0 H Lymphocytes # 3.1 H Monocytes # 1.4 H Eosinophils # 0.2 Basophils # 0.1 Nucleated Red Blood Cells # 0.0 Test 04/30/17 06:32 04/30/17 08:12 04/30/17 11:58 Sodium Level 137 Potassium Level 4.5 Chloride Level 108 Carbon Dioxide Level 21 Anion Gap 13 Blood Urea Nitrogen 38 H Creatinine 1.57 H Glucose Level 126 # Calcium Level 9.6 Bedside Glucose 122 140 Medications Medications Current Medications Allopurinol (Zyloprim) 100 mg DAILY PO Last administered on 04/30/17 08:18; Admin Dose 100 MG; Start 04/21/17 at 09:00 Clonidine (Catapres) 0.2 mg Q8 PO Last administered on 04/30/17 13:15; Admin Dose 0.2 MG; Start 04/20/17 at 14:00 Furosemide (Lasix) 10 mg DAILY PO Last administered on 04/30/17 08:17; Admin Dose 10 MG; Start 04/21/17 at 09:00 Hydralazine HCl (Apresoline) 100 mg Q8 PO Last administered on 04/30/17 13:15 ; Admin Dose 100 MG; Start 04/20/17 at 14:00 Acetaminophen/ Hydrocodone Bitart ([place] (5/325)) 1 tab PRN PO Last administered on 04/23/17 18:48; Admin Dose 1 TAB; Start 04/20/17 at 12:00 Linagliptin (Tradjenta) 5 mg DAILY PO Last administered on 04/30/17 08:18; Admin Dose 5 MG; Start 04/21/17 at 09:00 Nitroglycerin (Nitroglycerin (Sl Tab) 0.4 Mg) 1 tab PRN SL ; Start 04/20/17 at 12:00 Pantoprazole (Protonix Tab) 40 mg DAILY PO Last administered on 04/30/17 08:18 ; Admin Dose 40 MG; Start 04/20/17 at 12:00 Ondansetron HCl (Zofran Inj) 4 mg Q6 PRN IV NAUSEA AND/OR VOMITING; Start 04/20 at 12:00 Docusate Sodium (Colace) 100 mg BID PO Last administered on 04/30/17 08:15; Admin Dose 100 MG; Start 04/20/17 at 21:00 Acetaminophen (Tylenol Tab) 650 mg Q6 PRN PO PAIN AND OR ELEVATED TEMP Last administered on 04/22/17 21:13; Admin Dose 650 MG; Start 04/20/17 at 12:00 Morphine Sulfate (morphine) 2 mg Q6H PRN IV PAIN LEVEL 6-10; Start 04/20/17 at 12:00 Hydralazine HCl (Apresoline) 20 mg Q6 PRN IV ELEVATED BLOOD PRESSURE Last administered on 04/30/17 00:54; Admin Dose 20 MG; Start 04/20/17 at 12:30 Miscellaneous Information 1 ea NOTE XX ; Start 04/20/17 at 12:30 Glucose (Glutose) 15 gm Q15M PRN PO DECREASED GLUCOSE; Start 04/20/17 at 12:30 Glucose (Glutose) 22.5 gm Q15M PRN PO DECREASED GLUCOSE; Start 04/20/17 at 12: 30 Dextrose (D50w Syringe) 25 ml Q15M PRN IV DECREASED GLUCOSE; Start 04/20/17 at 12:30 Dextrose (D50w Syringe) 50 ml Q15M PRN IV DECREASED GLUCOSE; Start 04/20/17 at 12:30 Glucagon (Glucagen) 1 mg Q15M PRN IM DECREASED GLUCOSE; Start 04/20/17 at 12:30 Glucose (Glutose) 15 gm Q15M PRN BUCCAL DECREASED GLUCOSE; Start 04/20/17 at 12 :30 Diagnostic Test (Pha) (Accu-Chek) 1 ea 02 XX Last administered on 04/30/17 02: 31; Admin Dose 1 EA; Start 04/21/17 at 02:00 Atorvastatin Calcium (Lipitor) 40 mg QHS PO Last administered on 04/29/17 21: 04; Admin Dose 40 MG; Start 04/20/17 at 21:00 Enoxaparin Sodium (Lovenox) 40 mg DAILY SC Last administered on 04/30/17 08:29 ; Admin Dose 40 MG; Start 04/20/17 at 16:48 Isosorbide Mononitrate (Imdur) 30 mg DAILY PO Last administered on 04/30/17 08 :17; Admin Dose 30 MG; Start 04/21/17 at 09:00 Clonidine (Catapres) 0.1 mg Q6 PRN PO For Systolic BP >160 Last administered on 04/24/17 03:48; Admin Dose 0.1 MG; Start 04/24/17 at 00:30 Insulin Glargine (Lantus) 30 unit QHS SC Last administered on 04/29/17 21:14; Admin Dose 30 UNIT; Start 04/26/17 at 21:00 Prednisone (Prednisone) 5 mg DAILY PO Last administered on 04/30/17 08:18; Admin Dose 5 MG; Start 04/28/17 at 15:00 Carvedilol (Coreg) 3.125 mg BID PO Last administered on 04/29/17 21:04; Admin Dose 3.125 MG; Start 04/29/17 at 21:00 Nifedipine (Procardia Xl) 60 mg BID PO Last administered on 04/30/17 08:17; Admin Dose 60 MG; Start 04/29/17 at 21:00 Doxazosin Mesylate (Cardura) 2 mg BID PO ; Start 04/30/17 at 21:00 DERRICK MONTES Apr 30, 2017 16:33
--- NOTE | 2017-04-30 19:10 | PN ---
Date/Time of Note Date/Time of Note DATE: 04/30/17 TIME: 19:08 Assessment/Plan VTE Prophylaxis VTE Prophylaxis Intervention: SCD's Lines/Catheters IV [facility] Type [facility]from [facility]): [place] Assessment/Plan Chief Complaint/Hosp Course Patient with episode of bradycardia heart rate going into 30s, beta-blockers discontinued by cardiology, continue to monitor patient on telemetry floor Assessment/Plan - HTN, BP medication is optimized by cardiology, Dr Zavala is following. - Chest pain. negative troponins x3, small mostly irreversible changes on Lexiscan. - Atrial flutter with some slow ventricular response at times down to the 40s on beta raffi. - Coronary artery disease, status post coronary artery bypass graft surgery 2012 , indication management. - Dyslipidemia. - Gout. Status post left knee steroid injection by Dr. Morales, orthopedic surgery - DM. Continue Lantus and pre-meal NovoLog. Further recommendations based on clinical course. Plan of care discussed with Dr. Naranjo. Problems: Exam/Review of Systems Vital Signs Vitals Vital Signs Date Time Temp Pulse Resp B/P Pulse Ox O2 Delivery O2 Flow Rate FiO2 04/30/17 16:02 67 04/30/17 15:42 98.3 19 146/66 96 04/29/17 15:20 Room Air Intake and Output 04/29/17 04/29/17 04/30/17 15:00 23:00 07:00 Intake Total 1200 ml 250 ml Balance 1200 ml 250 ml Exam Constitutional: alert Neck: supple Respiratory: clear to auscultation Cardiovascular: irregular rhythm Gastrointestinal: non-tender, soft Musculoskeletal: nl extremities to inspection, swelling Extremities: normal pulses (Left knee swelling, improved) Results Result Diagram: 04/29/17203004/30/17 0632 Results 24 hrs Laboratory Tests Test 04/29/17 20:31 04/29/17 21:07 04/30/17 02:09 04/30/17 06:32 White Blood Count 15.5 #H Red Blood Count 4.44 L Hemoglobin 13.3 L Hematocrit 40.0 L Mean Corpuscular Volume 90.1 Mean Corpuscular Hemoglobin 30.0 Mean Corpuscular Hemoglobin Concent 33.3 Red Cell Distribution Width 12.6 Platelet Count 260 Mean Platelet Volume 10.6 H Neutrophils % 64.6 Lymphocytes % 19.8 Monocytes % 9.2 Eosinophils % 1.0 Basophils % 0.6 Nucleated Red Blood Cells % 0.0 Neutrophils # 10.0 H Lymphocytes # 3.1 H Monocytes # 1.4 H Eosinophils # 0.2 Basophils # 0.1 Nucleated Red Blood Cells # 0.0 Bedside Glucose 219 134 Sodium Level 137 Potassium Level 4.5 Chloride Level 108 Carbon Dioxide Level 21 Anion Gap 13 Blood Urea Nitrogen 38 H Creatinine 1.57 H Glucose Level 126 # Calcium Level 9.6 Test 04/30/17 08:12 04/30/17 11:58 04/30/17 17:10 Bedside Glucose 122 140 152 Medications Medications Current Medications Allopurinol (Zyloprim) 100 mg DAILY PO Last administered on 04/30/17 08:18; Admin Dose 100 MG; Start 04/21/17 at 09:00 Clonidine (Catapres) 0.2 mg Q8 PO Last administered on 04/30/17 13:15; Admin Dose 0.2 MG; Start 04/20/17 at 14:00 Furosemide (Lasix) 10 mg DAILY PO Last administered on 04/30/17 08:17; Admin Dose 10 MG; Start 04/21/17 at 09:00 Hydralazine HCl (Apresoline) 100 mg Q8 PO Last administered on 04/30/17 13:15 ; Admin Dose 100 MG; Start 04/20/17 at 14:00 Acetaminophen/ Hydrocodone Bitart ([place] (5/325)) 1 tab PRN PO Last administered on 04/23/17 18:48; Admin Dose 1 TAB; Start 04/20/17 at 12:00 Linagliptin (Tradjenta) 5 mg DAILY PO Last administered on 04/30/17 08:18; Admin Dose 5 MG; Start 04/21/17 at 09:00 Nitroglycerin (Nitroglycerin (Sl Tab) 0.4 Mg) 1 tab PRN SL ; Start 04/20/17 at 12:00 Pantoprazole (Protonix Tab) 40 mg DAILY PO Last administered on 04/30/17 08:18 ; Admin Dose 40 MG; Start 04/20/17 at 12:00 Ondansetron HCl (Zofran Inj) 4 mg Q6 PRN IV NAUSEA AND/OR VOMITING; Start 04/20 at 12:00 Docusate Sodium (Colace) 100 mg BID PO Last administered on 04/30/17 08:15; Admin Dose 100 MG; Start 04/20/17 at 21:00 Acetaminophen (Tylenol Tab) 650 mg Q6 PRN PO PAIN AND OR ELEVATED TEMP Last administered on 04/22/17 21:13; Admin Dose 650 MG; Start 04/20/17 at 12:00 Morphine Sulfate (morphine) 2 mg Q6H PRN IV PAIN LEVEL 6-10; Start 04/20/17 at 12:00 Hydralazine HCl (Apresoline) 20 mg Q6 PRN IV ELEVATED BLOOD PRESSURE Last administered on 04/30/17 00:54; Admin Dose 20 MG; Start 04/20/17 at 12:30 Miscellaneous Information 1 ea NOTE XX ; Start 04/20/17 at 12:30 Glucose (Glutose) 15 gm Q15M PRN PO DECREASED GLUCOSE; Start 04/20/17 at 12:30 Glucose (Glutose) 22.5 gm Q15M PRN PO DECREASED GLUCOSE; Start 04/20/17 at 12: 30 Dextrose (D50w Syringe) 25 ml Q15M PRN IV DECREASED GLUCOSE; Start 04/20/17 at 12:30 Dextrose (D50w Syringe) 50 ml Q15M PRN IV DECREASED GLUCOSE; Start 04/20/17 at 12:30 Glucagon (Glucagen) 1 mg Q15M PRN IM DECREASED GLUCOSE; Start 04/20/17 at 12:30 Glucose (Glutose) 15 gm Q15M PRN BUCCAL DECREASED GLUCOSE; Start 04/20/17 at 12 :30 Diagnostic Test (Pha) (Accu-Chek) 1 ea 02 XX Last administered on 04/30/17 02: 31; Admin Dose 1 EA; Start 04/21/17 at 02:00 Atorvastatin Calcium (Lipitor) 40 mg QHS PO Last administered on 04/29/17 21: 04; Admin Dose 40 MG; Start 04/20/17 at 21:00 Enoxaparin Sodium (Lovenox) 40 mg DAILY SC Last administered on 04/30/17 08:29 ; Admin Dose 40 MG; Start 04/20/17 at 16:48 Isosorbide Mononitrate (Imdur) 30 mg DAILY PO Last administered on 04/30/17 08 :17; Admin Dose 30 MG; Start 04/21/17 at 09:00 Clonidine (Catapres) 0.1 mg Q6 PRN PO For Systolic BP >160 Last administered on 04/24/17 03:48; Admin Dose 0.1 MG; Start 04/24/17 at 00:30 Insulin Glargine (Lantus) 30 unit QHS SC Last administered on 04/29/17 21:14; Admin Dose 30 UNIT; Start 04/26/17 at 21:00 Prednisone (Prednisone) 5 mg DAILY PO Last administered on 04/30/17 08:18; Admin Dose 5 MG; Start 04/28/17 at 15:00 Carvedilol (Coreg) 3.125 mg BID PO Last administered on 04/29/17 21:04; Admin Dose 3.125 MG; Start 04/29/17 at 21:00 Nifedipine (Procardia Xl) 60 mg BID PO Last administered on 04/30/17 08:17; Admin Dose 60 MG; Start 04/29/17 at 21:00 Doxazosin Mesylate (Cardura) 2 mg BID PO ; Start 04/30/17 at 21:00 LENO NICE Apr 30, 2017 19:10
[2017-04-30] MEDS: ATORVASTATIN 40 MG TAB PO SCH (19:51)
[2017-04-30] MEDS: INSULIN GLARGINE [LANtus] 3 ML PEN SC SCH (19:58)
[2017-04-30] MEDS: DOXAZOSIN 2 MG TAB PO SCH (20:02)
[2017-05-01] VITALS (8 sets, daily range): BP systolic 112–131; BP diastolic 53–62; PULSE 35–61; RESP 16–19
[2017-05-01] MEDS: ACCU-CHEK XX SCH (02:05)
[2017-05-01] MEDS: INSULIN ASPART [NOVOLOG] 3 ML PEN SC SCH ×4 (07:30→12:21)
[2017-05-01] MEDS: ALLOPURINOL 100 MG TAB PO SCH (08:25)
[2017-05-01] MEDS: ISOSORBIDE MONONITRATE(SR)30 MG TAB PO SCH (08:27)
[2017-05-01] MEDS: FUROSEMIDE 20 MG TAB PO SCH (08:28)
[2017-05-01] MEDS: LINAGLIPTIN 5 MG TABLET PO SCH (08:29)
[2017-05-01] MEDS: PANTOPRAZOLE (EC) 40 MG TAB PO SCH (08:29)
[2017-05-01] MEDS: DOXAZOSIN 2 MG TAB PO SCH (08:29)
[2017-05-01] MEDS: predniSONE 5 MG TAB PO SCH (08:30)
[2017-05-01] MEDS: NIFEdipine (XL) 60 MG TAB PO SCH (08:30)
[2017-05-01 08:38] LABS: ABNORMAL IP MESSAGE 1; BASOPHIL # 0.1 10^3/ul (0.0-0.1); BASOPHILS % 0.7 % (0.0-2.0); EOSINOPHILS # 0.2 10^3/ul (0.0-0.5); EOSINOPHILS % 1.5 % (0.0-7.0); HEMATOCRIT 40.3 % (42.0-52.0); HEMOGLOBIN 13.2 g/dl (14.0-18.0); LYMPHOCYTES # 3.2 10^3/ul (0.8-2.9); LYMPHOCYTES % 25.1 % (15.0-51.0); MEAN CORPUSCULAR HEMOGLOBIN 29.8 pg (29.0-33.0); MEAN CORPUSCULAR HGB CONC 32.8 g/dl (32.0-37.0); MEAN PLATELET VOLUME 10.4 fl (7.4-10.4); MONOCYTE # 1.4 10^3/ul (0.3-0.9); MONOCYTES % 10.8 % (0.0-11.0); NEUTROPHIL # 7.1 10^3/ul (1.6-7.5); NEUTROPHILS % 55.5 % (39.0-77.0); PLATELET COUNT 242 10^3/UL (140-415); POSITIVE DIFF @See below; RED BLOOD COUNT 4.43 10^6/ul (4.70-6.10); RED CELL DISTRIBUTION WIDTH 12.7 % (11.5-14.5); WHITE BLOOD COUNT 12.8 10^3/ul (4.8-10.8)
[2017-05-01] MEDS: ENOXAPARIN 40 MG/0.4 ML SYG SC SCH (08:40)
[2017-05-01] MEDS: DOCUSATE SODIUM 100 MG CAP PO SCH (08:41)
[2017-05-01 08:59] LABS: CALCIUM 9.4 mg/dl (8.4-10.2); CREATININE 1.83 mg/dl (0.61-1.24)
[2017-05-01 09:51] LABS: ANISOCYTOSIS 1+ (0-0); EOSINOPHILS % (M) 1 % (0-7); GIANT THROMBO% (M) 1 % (0-0); MONOCYTES % (M) 10 % (0-11); MYELOCYTES % (M) 2 % (0-0); OVALOCYTES 1+ (0-0); PLATELET ESTIMATE NORMAL; POIKILOCYTOSIS 2+ (0-0); POLYCHROMASIA 1+ (0-0)
--- NOTE | 2017-05-01 11:37 | PN ---
Date/Time of Note Date/Time of Note DATE: 05/01/17 TIME: 11:34 Assessment/Plan VTE Prophylaxis VTE Prophylaxis Intervention: other Lines/Catheters IV Catheter Type (from Nrs): Peripheral IV Assessment/Plan Assessment/Plan - HTN, BP medication is optimized by cardiology, Dr Zavala is following. - Chest pain. negative troponins x3, small mostly irreversible changes on Lexiscan. - Atrial flutter with some slow ventricular response at times down to the 40s on beta raffi. - Coronary artery disease, status post coronary artery bypass graft surgery 2012 , indication management. - Dyslipidemia. - Gout. Status post left knee steroid injection by Dr. Morales, orthopedic surgery - DM. Continue Lantus and pre-meal NovoLog. Further recommendations based on clinical course. Plan of care discussed with Dr. Naranjo. Subjective 24 Hr Interval Summary Free Text/Dictation Patient is asymptomatic, x1 episode of bradycardia heart rate- 30s- 50's now, beta-blockers discontinued by cardiology, monitor on telemetry floor. dw staff- last night was uneventful. at bed side- all Qs answered. Respiratory: no complaints Cardiovascular: no complaints Gastrointestinal: no complaints Genitourinary: no complaints Musculoskeletal: no complaints Exam/Review of Systems Vital Signs Vitals Vital Signs Date Time Temp Pulse Resp B/P Pulse Ox O2 Delivery O2 Flow Rate FiO2 05/01/17 08:02 52 05/01/17 07:55 98.0 19 121/61 100 05/01/17 04:00 Room Air Intake and Output 04/30/17 04/30/17 05/01/17 15:00 23:00 07:00 Intake Total 800 ml 250 ml Output Total 1800 ml Balance -1000 ml 250 ml Results Result Diagram: 05/01/17 0720 05/01/17 0720 Results 24 hrs Laboratory Tests Test 04/30/17 11:58 04/30/17 17:10 04/30/17 19:52 05/01/17 02:01 Bedside Glucose 140 152 204 199 Test 05/01/17 07:20 05/01/17 08:10 White Blood Count 12.8 H Red Blood Count 4.43 L Hemoglobin 13.2 L Hematocrit 40.3 L Mean Corpuscular Volume 91.0 Mean Corpuscular Hemoglobin 29.8 Mean Corpuscular Hemoglobin Concent 32.8 Red Cell Distribution Width 12.7 Platelet Count 242 Mean Platelet Volume 10.4 Neutrophils % 55.5 Segmented Neutrophils % (Manual) 60 Lymphocytes % 25.1 Lymphocytes % (Manual) 27 Monocytes % 10.8 Monocytes % (Manual) 10 Eosinophils % 1.5 Eosinophils % (Manual) 1 Basophils % 0.7 Myelocytes % (Manual) 2 H Nucleated Red Blood Cells % 0.0 Neutrophils # 7.1 Absolute Lymphocytes (Manual) 3.4 H Lymphocytes # 3.2 H Monocytes # 1.4 H Absolute Monocytes (Manual) 1.2 H Eosinophils # 0.2 Basophils # 0.1 Myelocytes # 0.2 H Nucleated Red Blood Cells # 0.0 Platelet Estimate NORMAL Giant Platelets 1 H Polychromasia 1+ Poikilocytosis 2+ Anisocytosis 1+ Macrocytosis 1+ Ovalocytes 1+ Sodium Level 137 Potassium Level 4.0 Chloride Level 104 Carbon Dioxide Level 27 Anion Gap 10 Blood Urea Nitrogen 41 H Creatinine 1.83 H Glucose Level 154 Calcium Level 9.4 Bedside Glucose 128 Medications Medications Current Medications Allopurinol (Zyloprim) 100 mg DAILY PO Last administered on 05/01/17 08:25; Admin Dose 100 MG; Start 04/21/17 at 09:00 Clonidine (Catapres) 0.2 mg Q8 PO Last administered on 05/01/17 06:21; Admin Dose 0.2 MG; Start 04/20/17 at 14:00 Furosemide (Lasix) 10 mg DAILY PO Last administered on 05/01/17 08:28; Admin Dose 10 MG; Start 04/21/17 at 09:00 Hydralazine HCl (Apresoline) 100 mg Q8 PO Last administered on 05/01/17 06:21 ; Admin Dose 100 MG; Start 04/20/17 at 14:00 Acetaminophen/ Hydrocodone Bitart ([place] (5/325)) 1 tab PRN PO Last administered on 04/23/17 18:48; Admin Dose 1 TAB; Start 04/20/17 at 12:00 Linagliptin (Tradjenta) 5 mg DAILY PO Last administered on 05/01/17 08:29; Admin Dose 5 MG; Start 04/21/17 at 09:00 Nitroglycerin (Nitroglycerin (Sl Tab) 0.4 Mg) 1 tab PRN SL ; Start 04/20/17 at 12:00 Pantoprazole (Protonix Tab) 40 mg DAILY PO Last administered on 05/01/17 08:29 ; Admin Dose 40 MG; Start 04/20/17 at 12:00 Ondansetron HCl (Zofran Inj) 4 mg Q6 PRN IV NAUSEA AND/OR VOMITING; Start 04/20 at 12:00 Docusate Sodium (Colace) 100 mg BID PO Last administered on 04/30/17 08:15; Admin Dose 100 MG; Start 04/20/17 at 21:00 Acetaminophen (Tylenol Tab) 650 mg Q6 PRN PO PAIN AND OR ELEVATED TEMP Last administered on 04/22/17 21:13; Admin Dose 650 MG; Start 04/20/17 at 12:00 Morphine Sulfate (morphine) 2 mg Q6H PRN IV PAIN LEVEL 6-10; Start 04/20/17 at 12:00 Hydralazine HCl (Apresoline) 20 mg Q6 PRN IV ELEVATED BLOOD PRESSURE Last administered on 04/30/17 00:54; Admin Dose 20 MG; Start 04/20/17 at 12:30 Miscellaneous Information 1 ea NOTE XX ; Start 04/20/17 at 12:30 Glucose (Glutose) 15 gm Q15M PRN PO DECREASED GLUCOSE; Start 04/20/17 at 12:30 Glucose (Glutose) 22.5 gm Q15M PRN PO DECREASED GLUCOSE; Start 04/20/17 at 12: 30 Dextrose (D50w Syringe) 25 ml Q15M PRN IV DECREASED GLUCOSE; Start 04/20/17 at 12:30 Dextrose (D50w Syringe) 50 ml Q15M PRN IV DECREASED GLUCOSE; Start 04/20/17 at 12:30 Glucagon (Glucagen) 1 mg Q15M PRN IM DECREASED GLUCOSE; Start 04/20/17 at 12:30 Glucose (Glutose) 15 gm Q15M PRN BUCCAL DECREASED GLUCOSE; Start 04/20/17 at 12 :30 Diagnostic Test (Pha) (Accu-Chek) 1 ea 02 XX Last administered on 05/01/17 02: 05; Admin Dose 1 EA; Start 04/21/17 at 02:00 Atorvastatin Calcium (Lipitor) 40 mg QHS PO Last administered on 04/30/17 19: 51; Admin Dose 40 MG; Start 04/20/17 at 21:00 Enoxaparin Sodium (Lovenox) 40 mg DAILY SC Last administered on 05/01/17 08:40 ; Admin Dose 40 MG; Start 04/20/17 at 16:48 Isosorbide Mononitrate (Imdur) 30 mg DAILY PO Last administered on 04/30/17 08 :17; Admin Dose 30 MG; Start 04/21/17 at 09:00 Clonidine (Catapres) 0.1 mg Q6 PRN PO For Systolic BP >160 Last administered on 04/24/17 03:48; Admin Dose 0.1 MG; Start 04/24/17 at 00:30 Insulin Glargine (Lantus) 30 unit QHS SC Last administered on 04/30/17 19:58; Admin Dose 30 UNIT; Start 04/26/17 at 21:00 Prednisone (Prednisone) 5 mg DAILY PO Last administered on 05/01/17 08:30; Admin Dose 5 MG; Start 04/28/17 at 15:00 Carvedilol (Coreg) 3.125 mg BID PO Last administered on 05/01/17 08:31; Admin Dose 3.125 MG; Start 04/29/17 at 21:00 Nifedipine (Procardia Xl) 60 mg BID PO Last administered on 05/01/17 08:30; Admin Dose 60 MG; Start 04/29/17 at 21:00 Doxazosin Mesylate (Cardura) 2 mg BID PO Last administered on 05/01/17 08:29; Admin Dose 2 MG; Start 04/30/17 at 21:00 LOPEZ GONZALEZ May 01, 2017 11:37
[2017-05-01] MEDS: COLCHICINE 0.6 MG TAB PO SCH (12:00)
[2017-05-01] MEDS ORDERED: PRED5TAB PO (13:05)
[2017-05-01] MEDS ORDERED: NIFE60TA7 PO (13:05)
[2017-05-01] MEDS ORDERED: PANT40TA4 PO (13:05)
[2017-05-01] MEDS ORDERED: CARV3.1260 PO (13:05)
[2017-05-01] MEDS ORDERED: DOCU-216 PO (13:05)
[2017-05-01] MEDS ORDERED: CLON0.1T14 PO (13:05)
[2017-05-01] MEDS ORDERED: COLC0.6T6 PO (13:13)
[2017-05-01] MEDS ORDERED: LANT3I SC (13:13)
[2017-05-01] MEDS ORDERED: NOVO3I SC (13:13)
--- NOTE | 2017-05-01 14:43 | DS ---
Date/Time of Note Date/Time of Note DATE: 05/01/17 TIME: 14:43 Discharge Summary Admission/Discharge Info Admit Date/Time Apr 20, 2017 at 10:12 Discharge Date/Time Hospital Course Patient with episode of bradycardia heart rate going into 30s, beta-blockers discontinued by cardiology, continue to monitor patient on telemetry floor Assessment/Plan - HTN, BP medication is optimized by cardiology, Dr Zavala is following. - Chest pain. negative troponins x3, small mostly irreversible changes on Lexiscan. - Atrial flutter with some slow ventricular response at times down to the 40s on beta raffi. - Coronary artery disease, status post coronary artery bypass graft surgery 2012 , indication management. - Dyslipidemia. - Gout. Status post left knee steroid injection by Dr. Morales, orthopedic surgery - DM. Continue Lantus and pre-meal NovoLog. Further recommendations based on clinical course. Plan of care discussed with Dr. Naranjo. Home Meds Active Scripts Colchicine* (Colcrys*) 0.6 Mg Tablet, 0.6 MG PO WITH LUNCH for 30 Days, TAB Prov:LOPEZ GONZALEZ 05/01/17 Insulin Glargine* (Lantus*) 100 Unit/Ml Soln, 30 UNIT SC QHS for 30 Days Prov:LOPEZ GONZALEZ 05/01/17 Insulin Aspart* (Novolog Insulin Pen*) 100 Unit/Ml Soln, 10 UNIT SC AC MEALS for 30 Days Prov:LOPEZ GONZALEZ 05/01/17 Nifedipine (Afeditab CR) 60 Mg Tablet.sa, 60 MG PO BID for 30 Days Prov:LOPEZ GONZALEZ 05/01/17 Prednisone* (Prednisone*) 5 Mg Tab, 5 MG PO DAILY for 7 Days, TAB Prov:LOPEZ GONZALEZ 05/01/17 Pantoprazole* (Pantoprazole*) 40 Mg Tablet.dr, 40 MG PO DAILY for 30 Days Prov:LOPEZ GONZALEZ 05/01/17 Docusate Sodium (Dok) 100 Mg Capsule, 100 MG PO BID for 30 Days, CAP Prov:LOPEZ GONZALEZ 05/01/17 Clonidine Hcl* (Catapres*) 0.1 Mg Tablet, 0.1 MG PO Q6 Y for For Systolic BP > 160 for 30 Days, TAB Prov:LOPEZ GONZALEZ 05/01/17 Carvedilol* (Carvedilol*) 3.125 Mg Tablet, 3.125 MG PO BID for 30 Days, TAB Prov:JYOTHI GONZALEZBIR 05/01/17 Reported Medications Hydrocodone/Acetaminophen ([place] 5-325 Tablet) 1 Each Tablet, 1 EACH PO PRN for PAIN AND/OR INFLAMMATION, TAB 04/20/17 Furosemide* (Furosemide*) 20 Mg Tablet, 10 MG PO DAILY, #60 TAB 02/19/16 Clonidine Hcl* (Clonidine Hcl*) 0.2 Mg Tablet, 0.2 MG PO Q8, TAB 02/19/16 Linagliptin (TRADJENTA) 5 Mg Tablet, 5 MG PO DAILY, TAB 02/19/16 Hydralazine Hcl* (Hydralazine Hcl*) 100 Mg Tablet, 100 MG PO Q8, #90 TAB 02/19/16 Allopurinol* (Allopurinol*) 100 Mg Tablet, 100 MG PO DAILY, TAB 02/19/16 Albuterol Sulfate* (Proair HFA*) 8.5 Gm Hfa.aer.ad, 2 PUFF INH Q4H Y for WHEEZING AND SOB, #1 INHALER 02/19/16 Omeprazole* (Omeprazole*) 20 Mg Capsule.dr, 20 MG PO DAILY, #30 CAP 02/19/16 Glimepiride* (Glimepiride*) 2 Mg Tablet, 2 MG PO WITH BREAKFAST DINNE, TAB 02/19/16 Simvastatin* (Zocor*) 40 Mg Tablet, 40 MG PO DAILY 10/26/11 Lisinopril* (Zestril*) 40 Mg Tablet, 20 MG PO BID 10/26/11 Nitroglycerin (Nitroquick) 0.4 Mg Tab.subl, 0.4 MG SL PRN 10/26/11 Discontinued Reported Medications Insulin Glargine* (Lantus*) 100 Unit/Ml Soln, 24 UNIT SC QHS, #1 VIAL 02/19/16 Colchicine* (Colcrys*) 0.6 Mg Tablet, 0.6 MG PO BID-TID, TAB 02/19/16 Carvedilol* (Carvedilol*) 25 Mg Tablet, 25 MG PO TID, #60 TAB 02/19/16 Discontinued Scripts Azithromycin* (Zithromax*) 250 Mg Tablet, 250 MG PO .ZPACK DIRECTED, #6 TAB TAKE 500 MG (2 TABS) THE FIRST DAY THEN 250 MG (1 TAB) DAYS 2-5 Prov:FRANCISCO FERGUSON MD 02/19/16 Primary Care Provider Not On Staff Doctor Pending Labs Laboratory Tests Test 04/30/17 17:10 04/30/17 19:52 05/01/17 02:01 05/01/17 07:20 Bedside Glucose 152mg/dL (70-220) 204mg/dL (70-220) 199mg/dL (70-220) White Blood Count 12.810^3/ul (4.8-10.8) Red Blood Count 4.4310^6/ul (4.70-6.10) Hemoglobin 13.2g/dl (14.0-18.0) Hematocrit 40.3% (42.0-52.0) Mean Corpuscular Volume 91.0fl (82.0-101.0) Mean Corpuscular Hemoglobin 29.8pg (29.0-33.0) Mean Corpuscular Hemoglobin Concent 32.8g/dl (32.0-37.0) Red Cell Distribution Width 12.7% (11.5-14.5) Platelet Count 15487^3/UL (140-415) Mean Platelet Volume 10.4fl (7.4-10.4) Neutrophils % 55.5% (39.0-77.0) Segmented Neutrophils % (Manual) 60% (39-77) Lymphocytes % 25.1% (15.0-51.0) Lymphocytes % (Manual) 27% (15-51) Monocytes % 10.8% (0.0-11.0) Monocytes % (Manual) 10% (0-11) Eosinophils % 1.5% (0.0-7.0) Eosinophils % (Manual) 1% (0-7) Basophils % 0.7% (0.0-2.0) Myelocytes % (Manual) 2% (0-0) Nucleated Red Blood Cells % 0.0/100WBC (0.0-0.0) Neutrophils # 7.110^3/ul (1.6-7.5) Absolute Lymphocytes (Manual) 3.410^3/ul (0.8-2.9) Lymphocytes # 3.210^3/ul (0.8-2.9) Monocytes # 1.410^3/ul (0.3-0.9) Absolute Monocytes (Manual) 1.210^3/ul (0.3-0.9) Eosinophils # 0.210^3/ul (0.0-0.5) Basophils # 0.110^3/ul (0.0-0.1) Myelocytes # 0.210^3/ul (0.0-0.0) Nucleated Red Blood Cells # 0.010^3/ul (0.0-0.0) Platelet Estimate NORMAL Giant Platelets 1% (0-0) Polychromasia 1+ (0-0) Poikilocytosis 2+ (0-0) Anisocytosis 1+ (0-0) Macrocytosis 1+ (0-0) Ovalocytes 1+ (0-0) Sodium Level 137mmol/L (135-144) Potassium Level 4.0mmol/L (3.5-5.1) Chloride Level 104mmol/L (97-110) Carbon Dioxide Level 27mmol/L (21-31) Anion Gap 10 (8-16) Blood Urea Nitrogen 41mg/dl (7-20) Creatinine 1.83mg/dl (0.61-1.24) Glucose Level 154mg/dl (70-220) Calcium Level 9.4mg/dl (8.4-10.2) Test 05/01/17 08:10 05/01/17 12:06 Bedside Glucose 128mg/dL (70-220) 209mg/dL (70-220) LOPEZ GONZALEZ May 01, 2017 14:43
--- NOTE | 2017-05-01 19:34 | CONS ---
Date/Time of Note Date/Time of Note DATE: 05/01/17 TIME: 19:33 Assessment/Plan Assessment/Plan Additional Assessment/Plan 1. acute kidney injury due to prerenal azotemia 2. Chest pain 3. h/o CAD s/p CABG 4. Hypertension- not optimally controlled 5. hyperlipidemia 6. Diabetes melitus 7. 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 Left knee pain and swelling Plan: continue current Chest pain work up, s/p Orthopedic evaluation for left knee pain and swelling - stopped lisinopril on 04/21/17 - Cr 1.57 yesterday, HR runs on lo side, BP fluctuates a a lot. Hydralazine 100mg Q 8 hr, Agree with changing procardia XL to 60mg bID, IV hydralazine prn will follow up Consultation Date/Type/Reason Admit Date/Time Apr 20, 2017 at 10:12 Initial Consult Date 04/20/17 Type of Consultation: NEPHROLOGY Referring Provider: SURENDRA ROSE MD 24 HR Interval Summary Free Text/Dictation stable, no complaints Exam/Review of Systems Vital Signs Vitals Vital Signs Date Time Temp Pulse Resp B/P Pulse Ox O2 Delivery O2 Flow Rate FiO2 05/01/17 12:02 61 05/01/17 11:58 98.0 19 131/62 97 05/01/17 04:00 Room Air Intake and Output 04/30/17 04/30/17 05/01/17 15:00 23:00 07:00 Intake Total 800 ml 250 ml Output Total 1800 ml Balance -1000 ml 250 ml Results Result Diagram: 05/01/17 0720 05/01/17 0720 Results 24 hrs Laboratory Tests Test 04/30/17 19:52 05/01/17 02:01 05/01/17 07:20 05/01/17 08:10 Bedside Glucose 204 199 128 White Blood Count 12.8 H Red Blood Count 4.43 L Hemoglobin 13.2 L Hematocrit 40.3 L Mean Corpuscular Volume 91.0 Mean Corpuscular Hemoglobin 29.8 Mean Corpuscular Hemoglobin Concent 32.8 Red Cell Distribution Width 12.7 Platelet Count 242 Mean Platelet Volume 10.4 Neutrophils % 55.5 Segmented Neutrophils % (Manual) 60 Lymphocytes % 25.1 Lymphocytes % (Manual) 27 Monocytes % 10.8 Monocytes % (Manual) 10 Eosinophils % 1.5 Eosinophils % (Manual) 1 Basophils % 0.7 Myelocytes % (Manual) 2 H Nucleated Red Blood Cells % 0.0 Neutrophils # 7.1 Absolute Lymphocytes (Manual) 3.4 H Lymphocytes # 3.2 H Monocytes # 1.4 H Absolute Monocytes (Manual) 1.2 H Eosinophils # 0.2 Basophils # 0.1 Myelocytes # 0.2 H Nucleated Red Blood Cells # 0.0 Platelet Estimate NORMAL Giant Platelets 1 H Polychromasia 1+ Poikilocytosis 2+ Anisocytosis 1+ Macrocytosis 1+ Ovalocytes 1+ Sodium Level 137 Potassium Level 4.0 Chloride Level 104 Carbon Dioxide Level 27 Anion Gap 10 Blood Urea Nitrogen 41 H Creatinine 1.83 H Glucose Level 154 Calcium Level 9.4 Test 05/01/17 12:06 Bedside Glucose 209 LORENZA GIBSON MD May 01, 2017 19:34
--- NOTE | 2017-05-02 06:08 | PN ---
DATE: 05/01/2017 SUBJECTIVE DATA: The patient is a 71-year-old white male who was admitted 14 days ago with chest pain and uncontrolled hypertension. During his admission, there was a need for frequent adjustment of antihypertensive medications until satisfactory control was obtained. The patient also has gout and developed gouty arthritis of the left knee. He was treated with steroids, which resulted in mild but persistent leukocytosis due to steroid marginalization. Eventually, the acute problems were resolved and the patient at this time is comfortable, asymptomatic, able to ambulate with no difficulty. At the time of admission, the chest pain was of concern because the patient has documented coronary artery disease and he is status post multivessel bypass surgery. The initial series of troponin were negative, which ruled out acute myocardial infarction. The electrocardiogram documents chronic atrial flutter with variable heart rate and occasional bradycardia. The flutter is of a slow type. It is agreed that this is chronic flutter. Today, the cardiology service is asked to approve his discharge. REVIEW OF SYSTEMS: HEENT: Normocephalic, atraumatic. No complaints. GENERAL: Patient is in full mental capacity and carries a normal conversation. CHEST: No chest pain or shortness of breath. ABDOMEN: No abdominal pain. EXTREMITIES: Left knee still with minor degree of discomfort which is improving. PHYSICAL EXAMINATION: VITAL SIGNS: The patient's weight is 75 kg. Blood pressure 131/62 mmHg, pulse is 60/minute, irregular due to variable AV conduction, in constant atrial flutter. Temperature is 98, respiratory 19. Oxygen saturation in room air is 97%. HEENT: Unremarkable. Eyes: PERRL. EOMI. Conjunctivae and eyelids are normal, sclerae anicteric. Oral mucosa moist with no cyanosis. NECK: Supple without thyromegaly or lymphadenopathy. Trachea is midline, no jugular vein distention. Carotid pulses are normal and equal. No bruits. CHEST: Symmetric with equal expansion; there is a well-healed midline sternotomy surgical incision. ABDOMEN: Soft, nontender, nondistended. EXTREMITIES: Residual tenderness (minimal) on the left knee. Peripheral pulses not well palpated (abnormal). LABORATORY AND DIAGNOSTIC DATA: Electrocardiogram described above and shows constant atrial flutter with variable AV conduction and occasional bradycardia with a heart rate in the 40s (asymptomatic). Echocardiogram performed during this admission documents normal size cardiac chambers, mild concentric left ventricular hypertrophy, mild left ventricular systolic dysfunction with an estimated ejection fraction of 45% and no significant valvular dysfunction despite some degree of aortic valve calcification. ASSESSMENT: 1. Admission with chest pain in the context of a patient with coronary artery disease and status post coronary artery bypass grafting. The patient was observed and acute coronary syndrome was ruled out by Lexiscan nuclear stress test and normal troponins. 2. Uncontrolled hypertension which was refractory to treatment for the majority of his hospitalization until it was finally under control. 3. Acute kidney injury which has improved or remain (item under the care of the admitting physician). 4. Chronic atrial flutter. 5. Coronary artery disease. 6. Gout with gouty arthritis. 7. Persistent low-grade leukocytosis. RECOMMENDATIONS: From that point of view of cardiac care, the patient may be discharged home with an appointment to see Dr. Rene Zavala, his recovery assistant in office for further care and approach to the patient's arrhythmia. Dictated By: CHRISTY TOBIN MD /tiffanie/mi /Document#: [id number] CC: Rene Zavala MD;*[facility]*
== END 2017-05-01 15:25 | disposition home or self-care (01) | DRG 309 ==
LOC: E/R 22:48 → MS3 04-20 02:30 → OBSVTOIN 04-20 10:12 → MS4 04-20 14:11
PROVIDERS: ADMIT Internal Medicine; ATTEND Internal Medicine
DX: I48.92 Unspecified atrial flutter (principal); I25.810 Atherosclerosis of coronary artery bypass graft(s) without angina pectoris; N17.9 Acute kidney failure, unspecified; R07.9 Chest pain, unspecified; E11.9 Type 2 diabetes mellitus without complications; E78.5 Hyperlipidemia, unspecified; M10.9 Gout, unspecified
CPT/HCPCS: 36415; 71010; 73562; 78452; 80048; 80053; 80061; 81003; 82962; 83036; 83880; 84145; 84439; 84443; 84484; 85025; 87040; 93005; 93017; 93306; 93970; 96374; 96375; 99217; A9500; A9505; G0378; J0360; J0696; J0702; J1650; J1815; J2270; J2785; J7030; J7512